=== PATIENT | male | born 1940 | race Caucasian/White ===

== ENCOUNTER 2017-01-24 22:06 | Inpatient (IN) | payer MEDICARE, OTHER ==
[~2017-01-24] VITALS: Ht 193 cm; Wt 110.9 kg
[~2017-01-24 22:06] MED LIST: AMLO10TA2 PO; BUPR150T15 PO; DOXA4TAB3 PO; HYDR25TA9 PO; INSU100V13 SUBCUT; INSU100V31 SUBCUT; LEVO112C PO; LISI-334 PO; POTA20TA84 PO
[2017-01-24] MEDS ORDERED: ASPIRIN 81 MG TAB.CHEW PO ONE (22:45)
[2017-01-24] MEDS ORDERED: NITROGLYCERIN SUBLINGUAL 0.4 MG BOTTLE OF 25. SL ONE (22:45)
[2017-01-24] MEDS ORDERED: FUROSEMIDE 100 MG/10 ML VIAL IVP ONE (22:45)
[2017-01-24 23:13] LABS: BASO % 0 % (0-3); EOS # 0.1 x10^3/uL (0.0-0.7); EOS % 1 % (0-3); HEMATOCRIT 38.8 % (39.0-53.0); HEMOGLOBIN 12.9 g/dL (13.0-17.5); LYMPH # 2.3 x10^3/uL (1.0-4.8); LYMPH % 24 % (24-48); MEAN CORPUSCULAR HEMOGLOBIN 30 pg (25-35); MEAN CORPUSCULAR HGB CONC 33 g/dL (31-37); MEAN CORPUSCULAR VOLUME 91 fL (79-100); MONO # 0.8 x10^3/uL (0.0-1.1); MONO % 8 % (0-9); NEUT # 6.4 x10^3uL (1.8-7.7); NEUT % 66 % (31-73); PLATELET COUNT 183 x10^3/uL (140-400); RED BLOOD COUNT 4.29 x10^6/uL (4.30-5.70); RED CELL DISTRIBUTION WIDTH 14.9 % (11.5-14.5); WHITE BLOOD COUNT 9.7 x10^3/uL (4.0-11.0)
[2017-01-24 23:19] LABS: BILIRUBIN,URINE NEG (NEG); CLARITY,URINE CLOUDY; COLOR,URINE YELLOW; GLUCOSE,URINE NEG (NEG); NITRITE,URINE NEG (NEG); UROBILINOGEN,URINE 0.2 mg/dL (0.2 mg/dL)
[2017-01-24 23:20] LABS: BACTERIA,URINE MANY /HPF (0-FEW); SQUAMOUS EPITHELIAL CELL,UR FEW /LPF; WBC,URINE TNTC /HPF (0-4)
[2017-01-24 23:34] LABS: ALBUMIN 3.4 g/dL (3.4-5.0); ALBUMIN/GLOBULIN RATIO 0.8 (1.0-1.7); CALCIUM 8.7 mg/dL (8.5-10.1); CREATININE 2.2 mg/dL (0.7-1.3); GFR 29.3; MAGNESIUM 2.7 mg/dL (1.8-2.4); POTASSIUM 4.9 mmol/L (3.5-5.1); TOTAL BILIRUBIN 0.4 mg/dL (0.2-1.0); TOTAL PROTEIN 7.5 g/dL (6.4-8.2)
--- NOTE | 2017-01-25 00:04 | PHYS DOC ---
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 He is also been drinking a great deal of free water Thursday by the nursing staff there at the [facility] because he asks for it. He has had no change in diet. No fevers, no chills no abdominal distention or pain. They were concerned about this weight gain although there are once providing him all of the free fluids. Review of Systems Review of Systems This patient is not able to provide a review of systems. He denies any chest pain, abdominal pain, other symptoms other than the fact he is hungry and thirsty. Current Medications Current Medications Current Medications Medications (Trade) Dose Ordered Sig/[facility] Start Time Stop Time Status Last Admin Dose Admin Aspirin (Children'S Aspirin) 324 mg 1X ONCE 01/24/17 22:45 01/24/17 22:46 DC 01/24/17 22:51 324 MG Furosemide (Lasix) 80 mg 1X ONCE 01/24/17 22:45 01/24/17 22:46 DC 01/24/17 22:50 80 MG Nitroglycerin (Nitrostat) 0.4 mg 1X ONCE 01/24/17 22:45 01/24/17 22:46 DC 01/24/17 22:45 0.4 MG Allergies Allergies Allergies Coded Allergies Type Severity Reaction Last Updated Verified Penicillins Allergy Intermediate hives 10/16/13 Yes Physical Exam Physical Exam Constitutional: Well developed, well nourished, no acute distress, non-toxic appearance. [] HENT: Normocephalic, atraumatic, bilateral external ears normal, oropharynx moist, no oral exudates, nose normal. [] Eyes: PERRLA, EOMI, conjunctiva normal, no discharge. [] Neck: Normal range of motion, no tenderness, supple, no stridor. [] Cardiovascular:Heart rate regular rhythm, no murmur [] Lungs & Thorax: Bilateral breath sounds clear to auscultation [] Abdomen: Bowel sounds normal, soft, no tenderness, no masses, no pulsatile masses. [] Skin: Warm, dry, no erythema, no rash. [] Back: No tenderness, no CVA tenderness. [] Extremities: No tenderness, no cyanosis, no clubbing, ROM intact, no edema. [] Neurologic: Alert and oriented X 3, normal motor function, normal sensory function, no focal deficits noted. [] Psychologic: Affect normal, judgement normal, mood normal. [] Current Patient Data Vital Signs Vital Signs Date Time Temp Pulse Resp B/P (MAP) Pulse Ox O2 Delivery O2 Flow Rate FiO2 01/24/17 22:45 79 157/88 Lab Results Laboratory Tests Test 01/24/17 22:50 01/24/17 22:55 White Blood Count 9.7 x10^3/uL (4.0-11.0) Red Blood Count 4.29 x10^6/uL (4.30-5.70) L Hemoglobin 12.9 g/dL (13.0-17.5) L Hematocrit 38.8 % (39.0-53.0) L Mean Corpuscular Volume 91 fL (79-100) Mean Corpuscular Hemoglobin 30 pg (25-35) Mean Corpuscular Hemoglobin Concent 33 g/dL (31-37) Red Cell Distribution Width 14.9 % (11.5-14.5) H Platelet Count 183 x10^3/uL (140-400) Neutrophils (%) (Auto) 66 % (31-73) Lymphocytes (%) (Auto) 24 % (24-48) Monocytes (%) (Auto) 8 % (0-9) Eosinophils (%) (Auto) 1 % (0-3) Basophils (%) (Auto) 0 % (0-3) Neutrophils # (Auto) 6.4 x10^3uL (1.8-7.7) Lymphocytes # (Auto) 2.3 x10^3/uL (1.0-4.8) Monocytes # (Auto) 0.8 x10^3/uL (0.0-1.1) Eosinophils # (Auto) 0.1 x10^3/uL (0.0-0.7) Basophils # (Auto) 0.0 x10^3/uL (0.0-0.2) Sodium Level 134 mmol/L (136-145) L Potassium Level 4.9 mmol/L (3.5-5.1) Chloride Level 100 mmol/L (98-107) Carbon Dioxide Level 26 mmol/L (21-32) Anion Gap 8 (6-14) Blood Urea Nitrogen 57 mg/dL (8-26) H Creatinine 2.2 mg/dL (0.7-1.3) H Estimated GFR (Cockcroft-Gault) 29.3 BUN/Creatinine Ratio 26 (6-20) H Glucose Level 144 mg/dL (70-99) H Calcium Level 8.7 mg/dL (8.5-10.1) Magnesium Level 2.7 mg/dL (1.8-2.4) H Total Bilirubin 0.4 mg/dL (0.2-1.0) Aspartate Amino Transferase (AST) 20 U/L (15-37) Alanine Aminotransferase (ALT) 32 U/L (16-63) Alkaline Phosphatase 48 U/L (46-116) Creatine Kinase 97 U/L (39-308) Creatine Kinase MB (Mass) 3.5 ng/mL (0.0-3.6) Creatine Kinase MB Relative Index 3.6 % (0-4) QI-Uoy-O-Type Natriuretic Peptide 344 pg/mL (0-449) Total Protein 7.5 g/dL (6.4-8.2) Albumin 3.4 g/dL (3.4-5.0) Albumin/Globulin Ratio 0.8 (1.0-1.7) L Urine Collection Type U cath Urine Color Yellow Urine Clarity Cloudy Urine pH 6.5 Urine Specific [place] <=1.005 Urine Protein Trace (NEG-TRACE) Urine Glucose (UA) Neg mg/dL (NEG) Urine Ketones (Stick) Neg mg/dL (NEG) Urine Blood Mod (NEG) Urine Nitrite Neg (NEG) Urine Bilirubin Neg (NEG) Urine Urobilinogen Dipstick 0.2 mg/dL (0.2 mg/dL) Urine Leukocyte Esterase Large (NEG) Urine RBC 3-5 /HPF (0-2) Urine WBC Tntc /HPF (0-4) Urine Squamous Epithelial Cells Few /LPF Urine Bacteria Many /HPF (0-FEW) Urine Mucus Slight /LPF EKG EKG [] EKG timed 10:39 PM 01/24/2017 demonstrates heart rate of 67 age or fibrillation with irregular rhythm left axis deviation with a Q-wave inferiorly in lead 3. EKG read by Dr. Musa. Radiology/Procedures Radiology/Procedures [] Horrible chest x-ray demonstrates low lung volumes with no clear infiltrate patient's got cardiomegaly no obvious cephalization. Chest x-ray read by Dr. Musa. Course & Med Decision Making Course & Med Decision Making Pertinent Labs and Imaging studies reviewed. (See chart for details) patient is a pleasant 76-year-old male with history of dementia Alzheimer's and diabetes who presents with increasing weight gain and swelling in the periphery. The concern initially upon presentation was congestive heart failure. Patient on appropriate workup to include diuresis with nitrates and Lasix. Patient oriented a Claros in place which is not draining any urine at this time. [] My differential diagnosis for peripheral edema included but not limited to the following. Renal sodium retention, nephrotic syndrome, idiopathic edema secondary to volume to patient, drug-induced edema concerning vasodilators, NSAIDs, venous insufficiency or thromboembolism, pitting edema from lymphatic obstruction or hypothyroidism, ascites associated with abdominal distention, central venous pressure increases secondary to cirrhosis, congestive heart failure, or pericardial heart disease. Patient's vital signs been stable patient's lung sounds are clear. Patient's chest x-ray does not show any signs of cephalization or congestive heart failure. Patient's proBNP is 340 it is noted that his by mouth and creatinine are mildly elevated at 57 and 2.2 if anything patient looks like he has been volume depleted. As been given Lasix and nitrates here and has been diuresing clear urine. At this point patient will be admitted to the hospital. " His primary care doctor. is Dr. Ayers Laminating Machine Operator note: Call physician Laminating Machine Operator called at of the service spoke to on-call physician at 11:58 PM Consult called back at Discussed the case I presented and they agreed with admission. Time of acceptance 11:58 PM Angelika Disclaimer Dragon Disclaimer This chart was dictated in whole or in part using Voice Recognition software in a busy, high-work load, and often noisy Emergency Department environment. It may contain unintended and wholly unrecognized errors or omissions. Departure Departure: Impression: Primary Impression: Chronic wound of extremity Additional Impressions: Renal failure Debility Disposition: ADMITTED INPATIENT Admitting Physician: Ran Parmar Condition: GUARDED Referrals: KHLOE AYERS MD (PCP) Problem Qualifiers WALI MUSA MD Jan 25, 2017 00:04
[2017-01-25] MEDS: IV NORMAL SALINE 1,000ML 1,000 ML IV SCH ×2 (00:30→10:30)
[2017-01-25] MEDS ORDERED: DIVA250T6 PO (01:40)
[2017-01-25] MEDS ORDERED: MULT-208 PO (01:55)
[2017-01-25] MEDS ORDERED: WARF1TAB7 PO (01:55)
[2017-01-25] MEDS ORDERED: DOXA8TAB59 PO (01:55)
[2017-01-25] MEDS ORDERED: TRAZ-90 PO (01:55)
[2017-01-25] MEDS ORDERED: INSU100I17 SQ (01:55)
[2017-01-25] MEDS ORDERED: LEVO137T2 PO (01:55)
[2017-01-25] MEDS ORDERED: FAMO20TA5 PO (01:55)
[2017-01-25] MEDS ORDERED: LEVO25TA55 PO (01:55)
[2017-01-25] MEDS ORDERED: POTA20TA4 PO (01:55)
[2017-01-25] MEDS ORDERED: WARF5TAB7 PO (01:55)
[2017-01-25] MEDS ORDERED: NITR100C62 PO (01:55)
[2017-01-25] MEDS ORDERED: FINA5TAB4 PO (01:55)
[2017-01-25] MEDS ORDERED: FLUV100T2 PO (01:55)
[2017-01-25] MEDS ORDERED: FURO40TA4 PO (01:55)
[2017-01-25] MEDS ORDERED: DIVA500T9 PO (01:55)
[2017-01-25] MEDS ORDERED: OMEP20CA9 PO (01:55)
[2017-01-25 01:57] VITALS: BP 162/88
[2017-01-25 07:40] VITALS: BP 175/84
--- NOTE | 2017-01-25 07:46 | PDOC1 ---
History of Present Illness Reason for Visit: Swelling History of Present Illness Pt sent from [facility] to ER for evaluation due to weight gain and swelling. Pt is a very poor historian. He was hospitalized here in the last year on the [facility] unit. He tells me that he is hungry and wants to eat. He says "I am here for my heel pain in my right heel." Per staff, he has been asking for more food all morning. 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 Endocrine: Diabetes, Hypothyroidism Past Surgical History: No pertinent history Family History: No pertinent hx Past Social History Smoke: No Alcohol: none Drugs: None Lives: Jail Review of Systems Review Of Systems ROS unobtainable due to pt's dementia Allergies: Coded Allergies: Penicillins (Verified Allergy, Intermediate, hives, 10/16/13) Medications Current Medications Aspirin (Children'S Aspirin) 324 mg 1X ONCE PO Last administered on 01/24/17 22:51; Start 01/24/17 at 22:45; Stop 01/24/17 at 22:46; Status DC Furosemide (Lasix) 80 mg 1X ONCE IVP Last administered on 01/24/17 22:50; Start 01/24/17 at 22:45; Stop 01/24/17 at 22:46; Status DC Nitroglycerin (Nitrostat) 0.4 mg 1X ONCE SL Last administered on 01/24/17 22: 45; Start 01/24/17 at 22:45; Stop 01/24/17 at 22:46; Status DC Sodium Chloride 1,000 ml @ 100 mls/hr Q10H IV ; Start 01/25/17 at 00:30; Stop 01/26/17 at 00:29 Ciprofloxacin (Cipro) 250 mg BID PO ; Start 01/25/17 at 09:00 Amlodipine Besylate (Norvasc) 10 mg DAILY PO ; Start 01/25/17 at 09:00 Divalproex Sodium (Depakote) 250 mg DAILY PO ; Start 01/25/17 at 09:00 Famotidine (Pepcid) 20 mg DAILY PO ; Start 01/25/17 at 09:00 Finasteride (Proscar) 5 mg DAILY PO ; Start 01/25/17 at 09:00 Fluvoxamine Maleate (Luvox) 150 mg DAILY PO ; Start 01/25/17 at 09:00 Warfarin Sodium (Coumadin Per Pharmacy) 1 each PRN DAILY PRN MC SEE COMMENTS; Start 01/25/17 at 07:00 Divalproex Sodium (Depakote Er) 500 mg BID PO ; Start 01/25/17 at 09:00 Active Scripts Active Reported Warfarin Sodium 5 Mg Tablet 1 Tab PO DAILY Warfarin Sodium 1 Mg Tablet 1 Mg PO DAILY Trazodone Hcl 100 Mg Tablet 1 Tab PO QHS Multi-Day Vitamins (Multivitamin) 1 Each Tablet 1 Tab PO DAILY Klor-Con M20 (Potassium Chloride) 20 Meq Tab.er.prt 1 Tab PO BID Omeprazole 20 Mg Capsule.dr 1 Cap PO DAILY06 Novolog Flexpen (Insulin Aspart) 100 Unit/1 Ml Insuln.pen 1 Unit SQ Macrobid 100 Mg Capsule (Nitrofurantoin Monohyd/M-Cryst) 100 Mg Capsule 1 Cap PO DAILY Synthroid (Levothyroxine Sodium) 25 Mcg Tablet 1 Tab PO DAILY06 Synthroid (Levothyroxine Sodium) 137 Mcg Tablet 1 Tab PO DAILY06 Furosemide 40 Mg Tablet 1 Tab PO DAILY Fluvoxamine Maleate 100 Mg Tablet 150 Mg PO DAILY Finasteride 5 Mg Tablet 1 Tab PO DAILY Famotidine 20 Mg Tablet 1 Tab PO BID Doxazosin Mesylate 8 Mg Tablet 1 Tab PO QHS Divalproex Sodium 500 Mg Tablet. 1 Tab PO BID Divalproex Sodium 250 Mg Tablet. 250 Mg PO DAILY Amlodipine Besylate 10 Mg Tablet 10 Mg PO DAILY Exam Vital Signs Vital Signs Date Time Temp Pulse Resp B/P (MAP) Pulse Ox O2 Delivery O2 Flow Rate FiO2 01/25/17 04:00 81 01/25/17 02:01 Room Air 01/25/17 01:57 97.8 18 162/88 (112) 97 General Appearance: Alert, Cooperative, No acute distress, Other (Oriented to person only) HEENT: Atraumatic, PERRLA, EOMI, Mucous membr. moist/pink, Other (Neck supple, full ROM, no JVD, no LAD) Respiratory: Clear to auscultation, Normal air movement Heart: Other (Irregularly irregular, no m/r/g) Cardiac: AFIB Abdominal: Soft, Other (Moderately obese and protuberant, normal bowel sounds, NTTP) Extremities: Other (Trace BLE edema; Right heel is normal. There is what appears to be a previous pressure ulcer on left heel that has fully healed. NTTP.) Skin: No rashes Neuro: Normal speech, Normal tone, Cranial nerves 3-12 NL Psych/Mental Status: Mood NL Assessment/Plan Assessment/Plan 1. Acute on chronic renal failure: Review of records shows baseline creat of 1.6. Was 2.2 in ER. Pt gently hydrated. Hold Lasix for now but will likely restart, as pt has had weight gain. Monitor lytes. Recheck BMP today. 2. UTI: Culture pending. Start Cipro 250 mg PO BID. COuld be contributing to pt's acute renal failure. 3. Atrial fibrillation: Rate stable, continue warfarin for stroke prophylaxis (per pharmacy). 4. Dementia: Stable. 5. DM2: Monitor sugars, pt known to be labile as difficult to control what and when he eats. 6. Hx of CHF: No sign of acute CHF on today's exam. Will continue home meds. 7. Hypothyroidism: Check TSH. COntinue Levothyroxine. 8. DVT proph: Pt has a hx of DVT. If INR is subtherapeutic, will cover w/ Lovenox until in range. 9. Disp: Expect 2 MN's stay due to complexity of illness and multiple high risk comorbid conditions. COURSE Allergies Coded Allergies Type Severity Reaction Last Updated Verified Penicillins Allergy Intermediate hives 10/16/13 Yes Laboratory Tests Test 01/24/17 22:50 01/24/17 22:55 White Blood Count 9.7 x10^3/uL (4.0-11.0) Red Blood Count 4.29 x10^6/uL (4.30-5.70) Hemoglobin 12.9 g/dL (13.0-17.5) Hematocrit 38.8 % (39.0-53.0) Mean Corpuscular Volume 91 fL (79-100) Mean Corpuscular Hemoglobin 30 pg (25-35) Mean Corpuscular Hemoglobin Concent 33 g/dL (31-37) Red Cell Distribution Width 14.9 % (11.5-14.5) Platelet Count 183 x10^3/uL (140-400) Neutrophils (%) (Auto) 66 % (31-73) Lymphocytes (%) (Auto) 24 % (24-48) Monocytes (%) (Auto) 8 % (0-9) Eosinophils (%) (Auto) 1 % (0-3) Basophils (%) (Auto) 0 % (0-3) Neutrophils # (Auto) 6.4 x10^3uL (1.8-7.7) Lymphocytes # (Auto) 2.3 x10^3/uL (1.0-4.8) Monocytes # (Auto) 0.8 x10^3/uL (0.0-1.1) Eosinophils # (Auto) 0.1 x10^3/uL (0.0-0.7) Basophils # (Auto) 0.0 x10^3/uL (0.0-0.2) Sodium Level 134 mmol/L (136-145) Potassium Level 4.9 mmol/L (3.5-5.1) Chloride Level 100 mmol/L (98-107) Carbon Dioxide Level 26 mmol/L (21-32) Anion Gap 8 (6-14) Blood Urea Nitrogen 57 mg/dL (8-26) Creatinine 2.2 mg/dL (0.7-1.3) Estimated GFR (Cockcroft-Gault) 29.3 BUN/Creatinine Ratio 26 (6-20) Glucose Level 144 mg/dL (70-99) Calcium Level 8.7 mg/dL (8.5-10.1) Magnesium Level 2.7 mg/dL (1.8-2.4) Total Bilirubin 0.4 mg/dL (0.2-1.0) Aspartate Amino Transf (AST/SGOT) 20 U/L (15-37) Alanine Aminotransferase (ALT/SGPT) 32 U/L (16-63) Alkaline Phosphatase 48 U/L (46-116) Creatine Kinase 97 U/L (39-308) Creatine Kinase MB (Mass) 3.5 ng/mL (0.0-3.6) Creatine Kinase MB Relative Index 3.6 % (0-4) Troponin I Quantitative 0.019 ng/mL (0-0.055) UK-Try-U-Type Natriuretic Peptide 344 pg/mL (0-449) Total Protein 7.5 g/dL (6.4-8.2) Albumin 3.4 g/dL (3.4-5.0) Albumin/Globulin Ratio 0.8 (1.0-1.7) Urine Collection Type U cath Urine Color Yellow Urine Clarity Cloudy Urine pH 6.5 Urine Specific [place] <=1.005 Urine Protein Trace (NEG-TRACE) Urine Glucose (UA) Neg mg/dL (NEG) Urine Ketones (Stick) Neg mg/dL (NEG) Urine Blood Mod (NEG) Urine Nitrite Neg (NEG) Urine Bilirubin Neg (NEG) Urine Urobilinogen Dipstick 0.2 mg/dL (0.2 mg/dL) Urine Leukocyte Esterase Large (NEG) Urine RBC 3-5 /HPF (0-2) Urine WBC Tntc /HPF (0-4) Urine Squamous Epithelial Cells Few /LPF Urine Bacteria Many /HPF (0-FEW) Urine Mucus Slight /LPF Current Medications Medications (Trade) Dose Ordered Sig/[facility] Route PRN Reason Start Time Stop Time Status Last Admin Dose Admin Aspirin (Children'S Aspirin) 324 mg 1X ONCE PO 01/24/17 22:45 01/24/17 22:46 DC 01/24/17 22:51 Furosemide (Lasix) 80 mg 1X ONCE IVP 01/24/17 22:45 01/24/17 22:46 DC 01/24/17 22:50 Nitroglycerin (Nitrostat) 0.4 mg 1X ONCE SL 01/24/17 22:45 01/24/17 22:46 DC 01/24/17 22:45 Sodium Chloride 1,000 ml @ 100 mls/hr Q10H IV 01/25/17 00:30 01/26/17 00:29 Ciprofloxacin (Cipro) 250 mg BID PO 01/25/17 09:00 Amlodipine Besylate (Norvasc) 10 mg DAILY PO 01/25/17 09:00 Divalproex Sodium (Depakote) 250 mg DAILY PO 01/25/17 09:00 Famotidine (Pepcid) 20 mg DAILY PO 01/25/17 09:00 Finasteride (Proscar) 5 mg DAILY PO 01/25/17 09:00 Fluvoxamine Maleate (Luvox) 150 mg DAILY PO 01/25/17 09:00 Warfarin Sodium (Coumadin Per Pharmacy) 1 each PRN DAILY PRN MC SEE COMMENTS 01/25/17 07:00 Divalproex Sodium (Depakote Er) 500 mg BID PO 01/25/17 09:00 Vital Signs Date Time Temp Pulse Resp B/P (MAP) Pulse Ox O2 Delivery O2 Flow Rate FiO2 01/25/17 04:00 81 01/25/17 02:01 Room Air 01/25/17 01:57 97.8 18 162/88 (112) 97 EKG: Atrial fibrillation, no ischemic changes CXR: Final report pending, ER report indicated no sign of CHF or pulmonary edema ANNIE PHILIPPE MD Jan 25, 2017 07:46
[2017-01-25] MEDS: DIVALPROEX ER 500 MG TAB.ER.24H PO SCH ×2 (08:25→20:23)
[2017-01-25] MEDS: LEVOTHYROXINE 25 MCG TABLET. PO SCH (08:26)
[2017-01-25] MEDS: MULTIVITAMIN with MINERAL TABLET. PO SCH (08:26)
[2017-01-25] MEDS: DIVALPROEX SODIUM 250 MG TABLET.DR. PO SCH (08:26)
[2017-01-25] MEDS: FINASTERIDE 5 MG TABLET PO SCH (08:26)
[2017-01-25] MEDS: FUROSEMIDE 40 MG TABLET PO SCH (08:26)
[2017-01-25] MEDS: CIPROFLOXACIN HCL 250 MG TABLET PO SCH ×2 (08:26→20:23)
[2017-01-25] MEDS: FAMOTIDINE 20 MG TABLET PO SCH (08:27)
[2017-01-25] MEDS: PANTOPRAZOLE 40 MG TABLET. PO SCH (08:27)
[2017-01-25] MEDS: amLODIPine BESYLATE 10 MG TABLET PO SCH (08:27)
[2017-01-25 08:39] LABS: CALCIUM 8.7 mg/dL (8.5-10.1); CREATININE 2.3 mg/dL (0.7-1.3); GFR 27.9; POTASSIUM 4.4 mmol/L (3.5-5.1)
[2017-01-25] MEDS ORDERED: DIVALPROEX SODIUM PO SCH (09:00)
--- NOTE | 2017-01-25 09:14 | EKG ---
[address] [address] Test Date: 2017-01-24 Test Time: 22:39:06 Pat Name: AUREA EUBANKS Department: Room: Gender: M [employer] Supervisor: KATRINA : 1940 Requested By: WALI MUSA Order Number: [id number] Reading MD: Measurements Intervals [place] Rate: 66 P: HI: QRS: -20 QRSD: 92 T: 61 QT: 384 QTc: 404 Interpretive Statements ATRIAL FIBRILLATION LEFTWARD AXIS QRS(T) CONTOUR ABNORMALITY CONSIDER ANTEROLATERAL MYOCARDIAL DAMAGE CONSISTENT WITH INFERIOR INFARCT PROBABLY OLD RI6.01 Unconfirmed report No previous ECG available for comparison
--- NOTE | 2017-01-25 10:01 | RAD ---
AP portable chest radiograph 01/24/2017 Clinical History: Congestive heart failure. An AP portable erect digital radiograph of the chest was obtained. No previous studies are available for comparison. The cardiac silhouette is mildly enlarged. Atherosclerotic calcification of the thoracic aorta is seen. Elevation of the right hemidiaphragm is noted. No acute pulmonary infiltrate is seen. No pleural effusion or pneumothorax is noted. Degenerative changes are seen involving the thoracic spine and the left shoulder. Impression: Mild cardiomegaly. No acute pulmonary infiltrate is seen.
[2017-01-25 11:57] VITALS: BP 165/84
[2017-01-25 15:24] VITALS: BP 150/81
[2017-01-25 20:11] VITALS: BP 166/86
[2017-01-25] MEDS: traZODone 100 MG TABLET. PO SCH (20:23)
[2017-01-25] MEDS: DOXAZOSIN MESYLATE 4 MG TABLET PO SCH (20:23)
[2017-01-25 23:01] VITALS: BP 153/71
[2017-01-26] MEDS: LEVOTHYROXINE 137 MCG TABLET PO SCH (05:23)
[2017-01-26] MEDS: LEVOTHYROXINE 25 MCG TABLET. PO SCH (05:23)
--- NOTE | 2017-01-26 05:46 | ACF ---
Admit Criteria Forms Admit Criteria Forms Admit Criteria Forms UROLOGIC DISEASE [facility] Clinical Indications for Admission to Inpatient Care (Place ' X' for any and all applicable criteria): Hospital admission is needed for appropriate care of the patient because of 1 or more of the following: [ ]I. New-onset Reduced urine output, or hydronephrosis remaining after emergency or observation level care (as appropriate ) [ ]II. Renal disease needing inpatient care indicated by 1 or more of the following(2)(3)(4): [ ]a) Acute renal failure [ ]b) Significant uremic complications [ ]c) Acute kidney injury (that does not qualify as Acute renal failure ) requiring inpatient care indicated by ALL of the following(5)(6)(7)(8) (9): [ ]i) Worsening clinical status (eg, rising creatinine) despite outpatient and observation care treatment (eg, hydration) [ ]ii) Acute kidney injury indicated by 1 or more of the following: [ ]1) 2-fold or more rise in serum creatinine from baseline [ ]2) Reduction of more than 50% in estimated glomerular filtration rate from baseline [ ]3) Urine output less than 0.5 mL/kg/hr for 12 hours despite adequate volume status [ ]d) Systemic cause (eg, Goodpasture syndrome ) needing inpatient care [ ]e) Rapidly progressive renal disease needing inpatient care (eg, plasmapheresis, immunosuppression ) Anasarca needing inpatient care [ ]f) Hemoptysis [ ]g) Hemolysis, thrombosis, or infraction [ ]h) Anasarca needing inpatient care [ ]III. New-onset or uncontrolled nephrogenic diabetes insipidus [ ]IV. Urologic infection requiring inpatient care as indicated by 1 or more of the following(10)(11)(12): [ ]a) Hemodynamic instability [ ]b) Dehydration that is severe or persistent [ ]c) Failure of outpatient treatment [ ]d) Paxton's gangrene [ ]e) Urinary obstruction [ ]f) Immunocompromised state (eg, chronic steroid use ) [ ]g) Known renal or urologic abnormalities(eg, indwelling catheter, structural abnormalities ) [ ]h) Recent urologic manipulation or procedure Urinary obstruction [ ]i) Abscess requiring drainage Immunocompromised state [ ]V. Acute urinary retention requiring inpatient management as indicated by ANY ONE of the following(1)(13): [ ]a) Retention cannot be alleviated via emergency or observation level care (eg, urinary catheter placement) [ ]b) Hemodynamic instability [ ]c) Acute neurologic etiology (eg, cauda equina) [ ]d) Dehydration or other complications not manageable with emergency or observation level care [ ]e) Acute kidney injury (that does not qualify as Acute renal failure ) requiring inpatient care indicated by ALL of the following(5)(6)(7)(8) (9): [ ]i) Acute kidney injury indicated by ANY ONE of the following: [ ]1) 2-fold or more rise in serum creatinine from baseline [ ]2) Reduction of more than 50% in estimated glomerular filtration rate from baseline [ ]ii) Worsening clinical status (eg, rising creatinine) despite outpatient and observation care treatment (eg, hydration) [ ]. Gross hematuria requiring inpatient management as indicated by ANY ONE of the following(1)(2): [ ]a) Evidence of renal obstruction [ ]b) Reduced urine output [ ]c) Clot retention after urinary catheterization and irrigation [ ]d) Severe Anemia [ ]e) Systemic cause needing inpatient treatment (eg, Goodpasture syndrome) [ ]VII. Priapism not responsive to emergency or observation care treatment [ ]VII. Scrotal, testicular, or epididymal disorder requiring inpatient care indicated by 1 or more of the following(1)(14)(15)(16): [ ]a) Scrotal edema or infection not manageable with emergency or observation level care [ ]b) Orchitis not manageable with emergency or observation level care [ ]c) Epididymitis not manageable with emergency or observation level of care [ ]d) Other scrotal, testicular, or epididymal disorder (eg, infection, inflammation) not manageable with emergency or observation level care [ ]IX. Complications of transplanted kidney indicated by 1 or more of the following [ ]a) Acute graft rejection requiring inpatient management (eg, intravenous immunosuppression) [ ]b) Acute kidney injury indicated by ALL of the following i) Acute kidney injury indicated by 1 or more of the following 1) 2-fold or more rise in serum creatinine from baseline 2) Reduction of more than 50% in estimated glomerular filtration rate from baseline 3) Urine output less than 0.5 mL/kg/hr for 12 hours despite adequate volume status ii) Kidney injury too severe or not responsive to outpatient and observation care treatment (eg, hydration) [ ]c) Infection requiring inpatient management (eg, Hemodynamic instability, need for intravenous antimicrobial treatment) [ ]d) Other complication of transplanted kidney requiring patient management (eg, severe diarrhea leading to malabsorption) [ ]X. Trauma to renal, genital, or urologic system requiring inpatient medical care [X]XI. Urologic Disease condition, symptom, or finding for which emergency and observation care have failed or are not considered appropriate. The original [employer] content created by [employer] has been revised. The portions of the content which have been revised are identified through the use of italic text or in bold, and [facility] has neither reviewed nor approved the modified material. All other unmodified content is copyright [facility]. Please see references footnoted in the original [employer] edition 2016 MANUEL KAUR Jan 26, 2017 05:46
[2017-01-26 05:52] VITALS: BP 176/78
[2017-01-26 06:37] LABS: CALCIUM 8.5 mg/dL (8.5-10.1); CREATININE 2.1 mg/dL (0.7-1.3); GFR 30.9
[2017-01-26] MEDS: PANTOPRAZOLE 40 MG TABLET. PO SCH (07:30)
[2017-01-26] MEDS: MULTIVITAMIN with MINERAL TABLET. PO SCH (08:10)
[2017-01-26] MEDS: FINASTERIDE 5 MG TABLET PO SCH (08:10)
[2017-01-26] MEDS: CIPROFLOXACIN HCL 250 MG TABLET PO SCH ×2 (08:11→21:02)
[2017-01-26] MEDS: amLODIPine BESYLATE 10 MG TABLET PO SCH (08:11)
[2017-01-26] MEDS: FUROSEMIDE 40 MG TABLET PO SCH (08:11)
[2017-01-26] MEDS: FAMOTIDINE 20 MG TABLET PO SCH (08:11)
[2017-01-26] MEDS: DIVALPROEX SODIUM 250 MG TABLET.DR. PO SCH (08:11)
[2017-01-26] MEDS: DIVALPROEX ER 500 MG TAB.ER.24H PO SCH ×2 (08:11→21:02)
[2017-01-26 10:30] VITALS: BP 138/67
[2017-01-26] MEDS: IV NORMAL SALINE 1,000ML 1,000 ML IV SCH ×2 (13:33→21:01)
[2017-01-26 15:36] VITALS: BP 146/70
[2017-01-26] MEDS ORDERED: WARFARIN 6 MG TABLET. PO ONE (16:00)
[2017-01-26 19:35] VITALS: BP 163/69
[2017-01-26] MEDS: traZODone 100 MG TABLET. PO SCH (21:02)
[2017-01-26] MEDS: DOXAZOSIN MESYLATE 4 MG TABLET PO SCH (21:03)
--- NOTE | 2017-01-27 03:27 | PN ---
DATE: 01/26/2017 SUBJECTIVE: The patient is a 76-year-old male patient who is a resident at [facility], was brought to the Emergency Room for evaluation due to weight gain and swelling. The patient himself is a very poor historian. He was hospitalized here in last year at the [facility]. He is constantly asking for water probably about 10 times in ___ that we are in his room. Denied any chest pain or shortness of breath. Apparently his Claros catheter was out of place and was reinserted. He is now making urine. His kidney function is if anything actually is improving. I contacted the [facility] as the last lab work we have available in our endocrine [facility] system was in 2013. At that time, his creatinine was 0.8 and his last creatinine done on 10/17/2016 was 0.9 mg/dL indicating that he has acute kidney injury, most likely due to obstruction. PHYSICAL EXAMINATION: GENERAL: When I saw him this afternoon, he looked well and was clearly in no apparent respiratory distress, somewhat pale, but no jaundice or cyanosis. No lymphadenopathy or thyromegaly. No jugular venous distention. Mild bilateral lower limb edema. VITAL SIGNS: Her heart rate was 67, blood pressure 138/67, temperature was 98.4, respiratory rate was 20, and oxygen saturation was 97% on room air. HEAD, EYES, EARS, NOSE AND THROAT: Showed normocephalic, atraumatic. NECK: Supple. HEART: Showed normal first and second heart sounds with no gallop, rub or murmur. CHEST: Clear to auscultation. No crepitation or rhonchi. ABDOMEN: Distended, soft, nontender. No guarding or rigidity. No organomegaly. Hernial orifices intact. Bowel sounds normal. NEUROLOGIC: He is demented, but he has no obvious lateralizing sign. All his cranial nerves are intact. He moves extremities without difficulty; however, he is mostly bed bound and chair bound. His intake over the last 24 hours was 3740, output was 11,650. LABORATORY DATA: As of this morning showed a serum sodium 138, potassium 4, chloride 103, bicarbonate 29, anion gap of 6, BUN 51, creatinine 2.1, estimated GFR was 31 mL per minute. His glucose was ____, calcium was 8.5. His troponin were all less than 0.019. ASSESSMENT: 1. Acute renal failure. His most recent lab work on 10/17/2016 showed a creatinine to be 0.9 mg/dL. I have feeling that the most likely calibrated is the fact that he probably was obstructed as his catheter was out. He is known to have benign prostatic hypertrophy. Urinalysis showed that it has too numerous to count wbc's and there was large amount of leukocyte esterase and he was started on ciprofloxacin. 2. Atrial fibrillation, rate controlled and apparently will anticoagulate on Coumadin. 3. Dementia, stable. 4. Type 2 diabetes mellitus and the blood sugar is reasonably controlled. PLAN: My plan is to restart his IV fluid for his acute renal failure. Continue to monitor his blood sugars and adjust insulin as needed. He has history of congestive heart failure, but however, the patient is clinically well compensated hypothyroidism. However, his TSH is within normal range to slightly higher 4.8, the upper limit of normal at 3.74. I would check also T3, T4. Continue with DVT prophylaxis and he is already on Coumadin and INR is in therapeutic range. I will arrange for him to have Doppler ultrasound, start him on IV fluid and repeat his labs tomorrow and decide on further management accordingly. REID BYERS MD DR: MAHAD/paulie JOB#: [id number] / [id number]
[2017-01-27 05:00] VITALS: BP 147/75
[2017-01-27] MEDS: LEVOTHYROXINE 137 MCG TABLET PO SCH (05:41)
[2017-01-27] MEDS: LEVOTHYROXINE 25 MCG TABLET. PO SCH (05:41)
[2017-01-27] MEDS: IV NORMAL SALINE 1,000ML 1,000 ML IV SCH ×3 (05:46→20:11)
[2017-01-27 06:55] LABS: HEMATOCRIT 38.6 % (39.0-53.0); HEMOGLOBIN 12.8 g/dL (13.0-17.5); RED BLOOD COUNT 4.3 x10^6/uL (4.30-5.70); RED CELL DISTRIBUTION WIDTH 14.4 % (11.5-14.5)
[2017-01-27 07:03] LABS: ALBUMIN 2.9 g/dL (3.4-5.0); ALBUMIN/GLOBULIN RATIO 0.8 (1.0-1.7); CALCIUM 8.2 mg/dL (8.5-10.1); CREATININE 1.6 mg/dL (0.7-1.3); GFR 42.3; POTASSIUM 3.4 mmol/L (3.5-5.1); TOTAL BILIRUBIN 0.4 mg/dL (0.2-1.0); TOTAL PROTEIN 6.6 g/dL (6.4-8.2)
--- NOTE | 2017-01-27 07:20 | RAD ---
Renal ultrasound, 01/26/2017: History: Acute and chronic renal insufficiency The right kidney measures 12.4 cm in length while the left kidney measures 13.5 cm. There is no evidence of hydronephrosis or a renal mass. The renal parenchymal echogenicity is within normal limits. The bladder is inadequately visualized due to decompression by a Claros catheter. IMPRESSION: No significant renal abnormality is detected.
[2017-01-27] MEDS: DIVALPROEX SODIUM 250 MG TABLET.DR. PO SCH (08:31)
[2017-01-27] MEDS: PANTOPRAZOLE 40 MG TABLET. PO SCH (08:31)
[2017-01-27] MEDS: CIPROFLOXACIN HCL 250 MG TABLET PO SCH ×2 (08:31→20:10)
[2017-01-27] MEDS: MULTIVITAMIN with MINERAL TABLET. PO SCH (08:31)
[2017-01-27] MEDS: FINASTERIDE 5 MG TABLET PO SCH (08:31)
[2017-01-27] MEDS: amLODIPine BESYLATE 10 MG TABLET PO SCH (08:31)
[2017-01-27] MEDS: FAMOTIDINE 20 MG TABLET PO SCH ×2 (08:31→20:11)
[2017-01-27] MEDS: DIVALPROEX ER 500 MG TAB.ER.24H PO SCH ×2 (08:31→20:11)
[2017-01-27 10:18] VITALS: BP 155/68
[2017-01-27] MEDS ORDERED: WARFARIN 7.5 MG TABLET. PO ONE (16:00)
[2017-01-27 18:38] VITALS: BP 172/79
[2017-01-27] MEDS: traZODone 100 MG TABLET. PO SCH (20:11)
[2017-01-27] MEDS: DOXAZOSIN MESYLATE 4 MG TABLET PO SCH (20:11)
--- NOTE | 2017-01-28 03:48 | PN ---
DATE: 01/27/2017 SUBJECTIVE: The patient is resting, sitting slightly propped up in bed, in no apparent respiratory distress. He is awake, alert, eating his lunch comfortably. On questioning him, he denied any complaint. The nursing staff did not voice any concern and stated that he had an uneventful night. PHYSICAL EXAMINATION: GENERAL: When I examined him, he looked somewhat pale, but no jaundice, cyanosis, or thyromegaly. No jugular venous distention. No limb edema. VITAL SIGNS: Her heart rate was 56, blood pressure 155/68, temperature was 97.5, respiratory rate 20, and oxygen saturation was 95% on room air. HEAD, EYES, EARS, NOSE AND THROAT: Showed normocephalic, atraumatic. NECK: Supple. HEART: Showed normal first and second sounds. No gallop, rub or murmur. CHEST: Clear to auscultation. No crepitation or rhonchi. ABDOMEN: Distended, soft, nontender. NEUROLOGIC: He was awake, alert, responding appropriately. All his cranial nerves are intact, he moves all extremities without difficulty; however, he is mostly bedbound, chair bound. He is actually . He has an indwelling Claros catheter. His intake over the last 24 hours was 4886 and output was 8515. LABORATORY DATA: As of this morning showed a white cell count 9000, hemoglobin 12.8, hematocrit 38.6, MCV 90 and platelet count of 157,000. His chemistry showed a serum sodium of 142, potassium 3.4, chloride 107, bicarbonate 27, anion gap of 8, BUN 29, creatinine of 1.6, estimated GFR was 42 mL per minute. His glucose was 180. Calcium was 8.2. Total bilirubin, AST, ALT, alkaline phosphatase were normal. His total protein was 6.6, albumin 2.9 g/dL. His prothrombin time was 18.3, INR of 1.8. His urine culture showed gram-negative rods greater than 100,000 colony forming units per mL. The identification and sensitivity is still pending at the time of this dictation. He did have renal ultrasound which showed the right kidney measuring 12.4 cm in length while the left kidney measured 13.5. There is no evidence of hydronephrosis, renal mass. Renal parenchyma and echogenicity within normal limits. The bladder is not adequately visualized due to decompression by Claros catheter. ASSESSMENT: 1. Acute kidney injury is improving. His creatinine is coming down from 2.3 down to 1.6. His BUN is coming down from 59 to 29. 2. Atrial fibrillation, rate controlled, and well anticoagulated, on Coumadin. 3. Dementia, stable. 4. Type 2 diabetes mellitus with blood sugar reasonably controlled. 5. Benign prostatic hypertrophy, requiring an indwelling Claros catheter. 6. Functional paraplegia, the patient is mostly bed bound and chair bound. He is left. PLAN: The plan is to continue with IV fluid. Continue with ciprofloxacin 250 mg p.o. b.i.d. for UTI. He is growing more than 100,000 colony forming units per mL of gram-negative rods. Identification and sensitivity is still pending at the time of this dictation. I will repeat his labs tomorrow and if his kidney function returned back to baseline of about 1 mg, he can be discharged back. REID BYERS MD DR: MAHAD/paulie JOB#: [id number] / [id number]
[2017-01-28] MEDS: LEVOTHYROXINE 137 MCG TABLET PO SCH (05:44)
[2017-01-28] MEDS: LEVOTHYROXINE 25 MCG TABLET. PO SCH (05:44)
[2017-01-28 05:50] VITALS: BP 163/78
[2017-01-28 06:48] LABS: CREATININE 1.2 mg/dL (0.7-1.3); POTASSIUM 3.1 mmol/L (3.5-5.1)
[2017-01-28] MEDS: DIVALPROEX ER 500 MG TAB.ER.24H PO SCH (08:12)
[2017-01-28] MEDS: FAMOTIDINE 20 MG TABLET PO SCH (08:12)
[2017-01-28] MEDS: CIPROFLOXACIN HCL 250 MG TABLET PO SCH (08:12)
[2017-01-28] MEDS: FINASTERIDE 5 MG TABLET PO SCH (08:12)
[2017-01-28] MEDS: DIVALPROEX SODIUM 250 MG TABLET.DR. PO SCH (08:12)
[2017-01-28] MEDS: MULTIVITAMIN with MINERAL TABLET. PO SCH (08:12)
[2017-01-28] MEDS: PANTOPRAZOLE 40 MG TABLET. PO SCH (08:12)
[2017-01-28 08:13] VITALS: BP 163/78
[2017-01-28] MEDS: amLODIPine BESYLATE 10 MG TABLET PO SCH (08:13)
[2017-01-28] MEDS ORDERED: POTASSIUM CHLORIDE 20 MEQ TABLET.ER. PO ONE (09:00)
[2017-01-28] MEDS ORDERED: WARFARIN 7.5 MG TABLET. PO ONE (16:00)
--- NOTE | 2017-01-29 | DS ---
DATE OF DISCHARGE: 01/28/2017 HOSPITAL COURSE: The patient is a 76-year-old male patient who was admitted from the [facility] for evaluation of weight gain and swelling. However, clinically, he was not really fluid overloaded. In fact, he was if anything dehydrated. His BUN and creatinine was high at 59 and 2.3 respectively. I did discontinue his Lasix and potassium and started him on IV fluid. Also, his urinalysis was suggestive of too numerous to count wbc's, large amount of leukocyte esterase and too many bacteria. Eventually, his urine culture has grown more than 100,000 colony forming units per mL of Stenotrophomonas maltophilia as well as gram-negative rods, 118,000-25,000. I spoke with the microbiology lab at [facility] and apparently Stenotrophomonas was sensitive to levofloxacin as well as trimethoprim sulfamethoxazole. He was already on ciprofloxacin. When I saw him today, he looked well and was clearly in no apparent distress. The patient denied any complaints. Nursing staff did not voice any concern and he did have an eventual night. PHYSICAL EXAMINATION: GENERAL: When I examined him, he looked pale, but no jaundice, cyanosis, lymphadenopathy or thyromegaly. No jugular venous distention. No limb edema. VITAL SIGNS: His heart rate was 74, blood pressure was 163/78, temperature was 97.5, respiratory rate 20, and oxygen saturation was 96% on room air. HEENT: Showed normocephalic, atraumatic. NECK: Supple. HEART: Showed normal first and second heart sounds with no gallop, rub or murmur. CHEST: Clear to auscultation. No crepitation or rhonchi. ABDOMEN: Distended, soft, nontender. No guarding or rigidity. No organomegaly. Hernial orifices intact. Bowel sounds normal. NEUROLOGIC: He was demented, but all his cranial nerves are intact. She moves upper extremities without difficulty. He is mostly bed bound and chair bound. He is actually Ha lift. His intake over the last 24 hours was 3198, output was 8350. LABORATORY DATA: As of this morning showed a white cell count of 9000, hemoglobin 13, hematocrit 39, MCV 90 and platelet count of 157,000. Serum sodium was 142, potassium 3.1, chloride 107, bicarbonate 29, anion gap of 6, BUN 17, creatinine 1.2, estimated GFR was 59 mL per minute, his glucose 191 and calcium was 8. Total protein was 6.6, albumin 2.9. ASSESSMENT: 1. Acute kidney injury, resolving. His creatinine is down to 1.2. The BUN is down to 17 mg/dL. 2. Urinary tract infection, growing more than 100,000 colony-forming units of Stenotrophomonas maltophilia, sensitive to levofloxacin for which we started him on levofloxacin 500 mg once a day. 3. Atrial fibrillation, rate controlled. Apparently, well anticoagulated on Coumadin. 4. Dementia, stable. 5. Type 2 diabetes mellitus. Seems to be reasonably controlled. 6. Protein-calorie malnutrition with serum albumin of 2.9 mg/dL. 7. Hypokalemia for which will give him 40 mEq of potassium. We will continue with his potassium supplement. REID BYERS MD DR: MAHAD/paulie JOB#: [id number] / [id number]
== END 2017-01-28 13:39 | disposition home or self-care (01) | DRG 689 ==
LOC: ER 22:06 → 1 SOUTH 23:59
PROVIDERS: ADMIT Family Medicine; ATTEND Family Medicine
DX: N39.0 Urinary tract infection, site not specified (principal); N17.0 Acute kidney failure with tubular necrosis; E46 Unspecified protein-calorie malnutrition; E11.22 Type 2 diabetes mellitus with diabetic chronic kidney disease; I13.0 Hypertensive heart and chronic kidney disease with heart failure and stage 1 through stage 4 chronic kidney disease, or unspecified chronic kidney disease; F03.90 Unspecified dementia, unspecified severity, without behavioral disturbance, psychotic disturbance, mood disturbance, and anxiety; I50.9 Heart failure, unspecified; I48.91 Unspecified atrial fibrillation; F32.9 Major depressive disorder, single episode, unspecified; B96.89 Other specified bacterial agents as the cause of diseases classified elsewhere; E86.0 Dehydration; E03.9 Hypothyroidism, unspecified; E87.6 Hypokalemia; F44.4 Conversion disorder with motor symptom or deficit; K21.9 Gastro-esophageal reflux disease without esophagitis; N18.9 Chronic kidney disease, unspecified; N40.0 Benign prostatic hyperplasia without lower urinary tract symptoms; Z79.01 Long term (current) use of anticoagulants; Z86.718 Personal history of other venous thrombosis and embolism; Z68.29 Body mass index [BMI] 29.0-29.9, adult; Z88.0 Allergy status to penicillin; Z74.01 Bed confinement status
CPT/HCPCS: 36415; 71010; 76770; 80048; 80053; 81001; 82553; 82947; 83735; 83880; 84443; 84484; 85025; 85027; 85610; 87086; 87186; 87641; 93005; 96374; 99285-25; J7030

== ENCOUNTER 2017-07-30 17:43 | Inpatient (IN) | payer MEDICARE, OTHER ==
[~2017-07-30] VITALS: Ht 193 cm; Wt 109.4 kg
[~2017-07-30 17:43] MED LIST changes: +DIVA250T6 PO; +DIVA500T9 PO; +DOXA8TAB59 PO; +FAMO20TA5 PO; +FINA5TAB4 PO; +FLUV100T2 PO; +FURO40TA4 PO; +INSU100I17 SQ; +LEVO137T2 PO; +LEVO25TA55 PO; +MULT-208 PO; +NITR100C62 PO; +OMEP20CA9 PO; +POTA20TA4 PO; +TRAZ-90 PO; +WARF-31 PO; +WARF1TAB69 PO
[2017-07-30] MEDS ORDERED: ALBUTEROL SULFATE 2.5 MG/3 ML NEBU. NEB ONE (18:00)
[2017-07-30] MEDS ORDERED: IV NORMAL SALINE 1,000ML 1,000 ML IV ONE (18:00)
[2017-07-30] MEDS ORDERED: INSULIN REGULAR 100 UNIT/ML 10ML VIAL. IV ONE (18:00)
--- NOTE | 2017-07-30 18:12 | PHYS DOC ---
Past History Past Medical History: A-Fib, CAD, CHF, Dementia, Depression, Diabetes, DVT, GERD, Hypertension, Hypothyroid, UTI, Other Past Surgical History: Other Smoking: Non-smoker Alcohol Use: None Drug Use: None Adult General Chief Complaint Chief Complaint: SHORTNESS OF BREATH HPI HPI Patient is a 77 year old M who presents with shortness of breath over the past 2 -3 months with worsening over the past 2-3 weeks. He states that he was started on oxygen to 3 weeks ago and feels that his symptoms of been mildly improving during that time. He denies chest pain, fever, chills or other associated symptoms at this time. His symptoms are exacerbated with minimal activity and improved with relative rest Review of Systems Review of Systems Constitutional: Denies fever or chills [] Eyes: Denies change in visual acuity, redness, or eye pain [] HENT: Denies nasal congestion or sore throat [] Respiratory: Negative except history of present illness Cardiovascular: No additional information not addressed in HPI [] GI: Denies abdominal pain, nausea, vomiting, bloody stools or diarrhea [] : Denies dysuria or hematuria [] Musculoskeletal: Denies back pain or joint pain [] Integument: Denies rash or skin lesions [] Neurologic: Denies headache, focal weakness or sensory changes [] Endocrine: polyuria and polydipsia All other systems were reviewed and found to be within normal limits, except as documented in this note. Family History Family History No pertinent family medical history was reported Current Medications Current Medications Her medications were reviewed Allergies Allergies Allergies Coded Allergies Type Severity Reaction Last Updated Verified Penicillins Allergy Intermediate hives 10/16/13 Yes Physical Exam Physical Exam Constitutional: Well developed, well nourished, moderate acute distress, ill- appearing. [] HENT: Normocephalic, atraumatic, maculopapular rash surrounding his mouth Eyes: EOMI, conjunctiva normal, no discharge. [] Neck: Normal range of motion, no tenderness, supple, no stridor. [] Cardiovascular:Heart rate regular rhythm, tachycardia Lungs & Thorax: Bilateral breath sounds clear to auscultation [] moderate increased work of breathing, supplemental oxygen by nonrebreather at 100% with saturations at approximately 94% Abdomen: Bowel sounds normal, soft, no tenderness, no masses, no pulsatile masses. [] Skin: Warm, dry, no erythema, Extremities: No tenderness, no cyanosis, no clubbing, ROM intact, no edema. [] Neurologic: Alert and oriented X 3, normal motor function, normal sensory function, no focal deficits noted. [] Psychologic: Affect normal, judgement normal, mood normal. [] Current Patient Data Vital Signs Vital Signs Date Time Temp Pulse Resp B/P (MAP) Pulse Ox O2 Delivery O2 Flow Rate FiO2 07/30/17 19:11 94 26 114/56 (75) 99 BiPAP/CPAP 07/30/17 17:46 97.4 15.0 Lab Results Laboratory Tests Test 07/30/17 17:51 07/30/17 17:55 07/30/17 19:21 Glucose (Fingerstick) 437 mg/dL 351 mg/dL White Blood Count 23.9 x10^3/uL Red Blood Count 5.83 x10^6/uL Hemoglobin 17.9 g/dL Hematocrit 56.3 % Mean Corpuscular Volume 97 fL Mean Corpuscular Hemoglobin 31 pg Mean Corpuscular Hemoglobin Concent 32 g/dL Red Cell Distribution Width 15.7 % Platelet Count 266 x10^3/uL Neutrophils (%) (Auto) 81 % Lymphocytes (%) (Auto) 6 % Monocytes (%) (Auto) 13 % Eosinophils (%) (Auto) 0 % Basophils (%) (Auto) 0 % Neutrophils # (Auto) 19.3 x10^3uL Lymphocytes # (Auto) 1.3 x10^3/uL Monocytes # (Auto) 3.2 x10^3/uL Eosinophils # (Auto) 0.0 x10^3/uL Basophils # (Auto) 0.0 x10^3/uL Platelet Estimate Pending Sodium Level 138 mmol/L Potassium Level 4.0 mmol/L Chloride Level 100 mmol/L Carbon Dioxide Level 13 mmol/L Anion Gap 25 Blood Urea Nitrogen 50 mg/dL Creatinine 2.4 mg/dL Estimated GFR (Cockcroft-Gault) 26.5 BUN/Creatinine Ratio 21 Glucose Level 450 mg/dL Lactic Acid Level 12.1 mmol/L Calcium Level 8.7 mg/dL Total Bilirubin 0.4 mg/dL Aspartate Amino Transf (AST/SGOT) 20 U/L Alanine Aminotransferase (ALT/SGPT) 30 U/L Alkaline Phosphatase 48 U/L Troponin I Quantitative 0.097 ng/mL IV-Aef-Z-Type Natriuretic Peptide 1370 pg/mL Total Protein 6.4 g/dL Albumin 2.6 g/dL Albumin/Globulin Ratio 0.7 Current Medications Medications (Trade) Dose Ordered Sig/Jorden Route PRN Reason Start Time Stop Time Status Last Admin Dose Admin Insulin Human Regular (NovoLIN R) 10 unit 1X ONCE IV 07/30/17 18:00 07/30/17 18:01 DC 07/30/17 18:23 Sodium Chloride 1,000 ml @ 100 mls/hr 1X ONCE IV 07/30/17 18:00 07/31/17 03:59 07/30/17 18:00 Albuterol Sulfate (Ventolin) 2.5 mg 1X ONCE NEB 07/30/17 18:00 07/30/17 18:01 DC Sodium Chloride 1,000 ml @ 0 mls/hr Q0M IV 07/30/17 19:45 Dextrose/Sodium Chloride 1,000 ml @ 0 mls/hr Q0M IV 07/30/17 19:35 UNV Insulin Human Regular 150 unit/ Sodium Chloride 151.5 ml @ 0 mls/hr CONT PRN PRN IV PER PROTOCOL 07/30/17 19:45 EKG EKG Interpreted by me: Heart rate 100, sinus rhythm, prolonged SC interval, no acute ST/T-wave abnormalities present[] Radiology/Procedures Radiology/Procedures One view AP chest x-ray interpreted by me: No infiltrate, no effusions, normal cardiac silhouette[] Course & Med Decision Making Course & Med Decision Making Pertinent Labs and Imaging studies reviewed. (See chart for details) Raúl has had a prolonged course of shortness of breath which may be associated with heart failure versus respiratory disease versus infection versus diabetic complications. Labs, EKG, images and initial therapies were started. His care was transferred to Dr. Ansari for further management. Addendum by Dr. Phani Ansari: I personally evaluated the patient. The patient the patient was hypotensive and tachycardic. Patient was started on IV fluid boluses with improvement in blood pressure. Patient found to have severe dehydration and elevated blood sugar with an anion gap concerning for acute DKA. Patient started on insulin drip. Patient also has a profound leukocytosis. Given patient's low oxygen levels, the patient will be empirically treated for possible pneumonia though chest x-ray does not show obvious infiltrates at this time. I spoke with Dr. Tamayo who accepted care patient in hospital. CODE STATUS DNR/DNI. Critical care time excluding procedures: 55 minutes Dragon Disclaimer Dragon Disclaimer This electronic medical record was generated, in whole or in part, using a voice recognition dictation system. Departure Departure: Impression: Primary Impression: DKA (diabetic ketoacidoses) Additional Impressions: Acute renal failure Dehydration Leukocytosis Lactic acidosis Acute respiratory failure Disposition: ADMITTED INPATIENT Admitting Physician: Shane Tamayo Condition: CRITICAL Referrals: KHLOE AYERS MD (PCP) Problem Qualifiers Primary Impression: DKA (diabetic ketoacidoses) Diabetes mellitus type: other specified (including SAPNA) Diabetes mellitus complication detail: without coma Qualified Codes: E13.10 - Other specified diabetes mellitus with ketoacidosis without coma Additional Impressions: Acute renal failure Acute renal failure type: unspecified Qualified Codes: N17.9 - Acute kidney failure, unspecified Leukocytosis Leukocytosis type: unspecified Qualified Codes: D72.829 - Elevated white blood cell count, unspecified Acute respiratory failure Respiratory failure complication: hypoxia Qualified Codes: J96.01 - Acute respiratory failure with hypoxia MARV FERMIN MD Jul 30, 2017 18:12 PHANI ANSARI MD Jul 30, 2017 19:56
[2017-07-30 18:33] LABS: ALBUMIN 2.6 g/dL (3.4-5.0); ALBUMIN/GLOBULIN RATIO 0.7 (1.0-1.7); CALCIUM 8.7 mg/dL (8.5-10.1); CREATININE 2.4 mg/dL (0.7-1.3); GFR 26.5; TOTAL BILIRUBIN 0.4 mg/dL (0.2-1.0); TOTAL PROTEIN 6.4 g/dL (6.4-8.2)
[2017-07-30 18:44] LABS: BASO % 0 % (0-3); EOS % 0 % (0-3); HEMATOCRIT 56.3 % (39.0-53.0); HEMOGLOBIN 17.9 g/dL (13.0-17.5); LYMPH # 1.3 x10^3/uL (1.0-4.8); LYMPH % 6 % (24-48); MEAN CORPUSCULAR HEMOGLOBIN 31 pg (25-35); MEAN CORPUSCULAR HGB CONC 32 g/dL (31-37); MEAN CORPUSCULAR VOLUME 97 fL (79-100); MONO # 3.2 x10^3/uL (0.0-1.1); MONO % 13 % (0-9); NEUT # 19.3 x10^3uL (1.8-7.7); NEUT % 81 % (31-73); PLATELET COUNT 266 x10^3/uL (140-400); RED BLOOD COUNT 5.83 x10^6/uL (4.30-5.70); RED CELL DISTRIBUTION WIDTH 15.7 % (11.5-14.5); WHITE BLOOD COUNT 23.9 x10^3/uL (4.0-11.0)
[2017-07-30] MEDS ORDERED: IV DEXTROSE 5 %-0.45 % NACL 1,000 ML IV SCH (19:35)
[2017-07-30] MEDS ORDERED: INSULIN REGULAR 150 UNIT in 0.9 % SODIUM CHLORIDE 150ML 150 ML IV PRN (19:45)
[2017-07-30 19:55] LABS: BGAS PH 7.22 (7.35-7.46)
[2017-07-30] MEDS ORDERED: ACETAMINOPHEN 325 MG TABLET PO PRN (20:00)
[2017-07-30] MEDS ORDERED: ONDANSETRON PF 4 MG/2 ML VIAL. IV PRN (20:00)
--- NOTE | 2017-07-30 20:22 | EKG ---
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
[2017-07-30 20:56] VITALS: BP 96/67
[2017-07-30 20:59] LABS: % BANDS 7 % (0-9); % LYMPHS 5 % (24-48); % MONOS 8 % (0-10); % SEGS 79 % (35-66)
[2017-07-30 21:00] LABS: PLT ESTIMATE ADEQUATE (ADEQUATE)
[2017-07-30] MEDS ORDERED: MEROPENEM 1 GM in IV NORMAL SALINE 100ML 100 ML IV SCH (21:00)
[2017-07-30 21:01] LABS: % ATYL 1 % (0-0)
[2017-07-30] MEDS: MEROPENEM IV Push 1 GM VIAL. IVP SCH (21:19)
[2017-07-30] MEDS: IV NORMAL SALINE 1,000ML 1,000 ML IV SCH ×2 (21:21→23:19)
[2017-07-30] MEDS ORDERED: VANCOMYCIN 2 GM in IV NORMAL SALINE 500ML 500 ML IV ONE (21:30)
[2017-07-30 21:31] VITALS: BP 93/60
[2017-07-30 22:00] VITALS: BP 105/66
[2017-07-30] MEDS: VANCOMYCIN PER PHARMACY MC PRN (22:11)
[2017-07-30 22:30] VITALS: BP 97/55
[2017-07-30] MEDS: IPRATRPIUM/ALBUTEROL 0.5/2.5MG 3 ML NEBU. NEB SCH (22:48)
[2017-07-30 23:00] VITALS: BP 100/69
[2017-07-30 23:07] LABS: BILIRUBIN,URINE SMALL (NEG); CLARITY,URINE CLOUDY; COLOR,URINE YELLOW; GLUCOSE,URINE NEG (NEG); NITRITE,URINE NEG (NEG); UROBILINOGEN,URINE 0.2 mg/dL (0.2 mg/dL)
[2017-07-30 23:08] LABS: BACTERIA,URINE MOD /HPF (0-FEW); WBC,URINE >40 /HPF (0-4)
[2017-07-30] MEDS: ENOXAPARIN 40 MG/0.4 ML DISP.SYRIN. SQ SCH (23:20)
[2017-07-30 23:30] VITALS: BP 116/70
[2017-07-31] VITALS (23 sets, daily range): BP systolic 106–152; BP diastolic 56–85
[2017-07-31] MEDS: IV NORMAL SALINE 1,000ML 1,000 ML IV SCH (03:26)
[2017-07-31] MEDS ORDERED: LIRA0.6P2 SQ (03:37)
[2017-07-31] MEDS ORDERED: NA P133E2 RC (03:37)
[2017-07-31] MEDS ORDERED: MEDR5TAB PO (03:37)
[2017-07-31] MEDS ORDERED: INSU100I27 SQ (03:37)
[2017-07-31] MEDS ORDERED: ARGI1POW19 PO (03:37)
[2017-07-31] MEDS ORDERED: WARF6TAB PO (03:37)
[2017-07-31] MEDS ORDERED: BISA10SU55 RC (03:37)
[2017-07-31] MEDS ORDERED: ACET500T68 PO (03:37)
[2017-07-31] MEDS ORDERED: MAGN2400 PO (03:37)
[2017-07-31] MEDS ORDERED: ONDA4TAB10 PO (03:37)
[2017-07-31] MEDS ORDERED: CRAN400C PO (03:37)
[2017-07-31] MEDS: IPRATRPIUM/ALBUTEROL 0.5/2.5MG 3 ML NEBU. NEB SCH ×3 (05:57→15:34)
[2017-07-31 07:09] LABS: BASO % 0 % (0-3); EOS % 0 % (0-3); HEMATOCRIT 45.3 % (39.0-53.0); HEMOGLOBIN 15.3 g/dL (13.0-17.5); LYMPH # 1.2 x10^3/uL (1.0-4.8); LYMPH % 7 % (24-48); MEAN CORPUSCULAR HEMOGLOBIN 31 pg (25-35); MEAN CORPUSCULAR HGB CONC 34 g/dL (31-37); MEAN CORPUSCULAR VOLUME 92 fL (79-100); MONO % 12 % (0-9); NEUT # 13.2 x10^3uL (1.8-7.7); NEUT % 80 % (31-73); PLATELET COUNT 167 x10^3/uL (140-400); RED BLOOD COUNT 4.92 x10^6/uL (4.30-5.70); RED CELL DISTRIBUTION WIDTH 14.8 % (11.5-14.5); WHITE BLOOD COUNT 16.4 x10^3/uL (4.0-11.0)
[2017-07-31 07:21] LABS: ALBUMIN 2.1 g/dL (3.4-5.0); ALBUMIN/GLOBULIN RATIO 0.7 (1.0-1.7); CALCIUM 7.9 mg/dL (8.5-10.1); CREATININE 1.7 mg/dL (0.7-1.3); GFR 39.4; POTASSIUM 3.4 mmol/L (3.5-5.1); TOTAL BILIRUBIN 0.2 mg/dL (0.2-1.0)
--- NOTE | 2017-07-31 07:29 | RAD ---
Single view chest 07/30/2017 Clinical indication: Shortness of breath. Comparison: Chest 01/24/2017. Findings: There is stable mild elevation of the right hemidiaphragm with a gaseous distended loop of bowel beneath the right hemidiaphragm. There is mild right basilar atelectasis or scarring. Cardiac and mediastinal silhouettes are stable. Calcified atheromatous disease of the thoracic aortic arch. There are scattered areas of pleural-parenchymal scarring in both lungs. No pleural effusion, pneumothorax or focal consolidation. Impression: 1. No acute cardiopulmonary abnormality. 2. Stable elevation of the right hemidiaphragm.
[2017-07-31] MEDS ORDERED: ACETAMINOPHEN 500 MG TABLET PO PRN (07:45)
[2017-07-31] MEDS ORDERED: INSULIN ASPART 300 UNITS/3 ML INSULN.PEN SQ SCH (08:00)
[2017-07-31] MEDS ORDERED: DEXTROSE 50% 25 GM / 50ML DISP.SYRIN. IV PRN (08:15)
[2017-07-31] MEDS: medroxyPROGESTERone 5 MG TABLET PO SCH (08:53)
[2017-07-31] MEDS: MULTIVITAMIN with MINERAL TABLET. PO SCH (08:53)
[2017-07-31] MEDS: DIVALPROEX SODIUM 250 MG TABLET.DR. PO SCH ×3 (08:53→21:47)
[2017-07-31] MEDS: LEVOTHYROXINE 137 MCG TABLET PO SCH (08:53)
[2017-07-31] MEDS: POTASSIUM CHLORIDE 20 MEQ TABLET.ER. PO SCH (08:54)
[2017-07-31] MEDS: amLODIPine BESYLATE 10 MG TABLET PO SCH (08:54)
[2017-07-31] MEDS: FAMOTIDINE 20 MG TABLET PO SCH ×2 (08:54→21:47)
[2017-07-31] MEDS: LEVOTHYROXINE 25 MCG TABLET. PO SCH (08:54)
[2017-07-31] MEDS ORDERED: NON FORMULARY ITEM (Liraglutide (Victoza 3-Pak) 1.8 MG) SQ SCH (09:00)
[2017-07-31] MEDS: MEROPENEM IV Push 1 GM VIAL. IVP SCH ×2 (09:00→21:48)
[2017-07-31] MEDS: INSULIN DETEMIR 300 UNITS/3 ML INSULN.PEN. SQ SCH ×2 (09:05→21:00)
--- NOTE | 2017-07-31 10:03 | PDOC2 ---
TA RODRIGUEZ BUFFERER 07/31/17 1003: CONSULT Date of Admission DATE: 07/31/17 TIME: 09:57 Reason for Consult: chf Problem List Problems Medical Problems: (1) Acute renal failure Status: Acute (2) Acute respiratory failure Status: Acute (3) Dehydration Status: Acute (4) DKA (diabetic ketoacidoses) Status: Acute (5) Lactic acidosis Status: Acute (6) Leukocytosis Status: Acute History of Present Illness Mr Perry is a 77 year old male who presents from a skilled nursing in [place]. He is currently confused and denies any medical problems. History is obtained from the chart. He apparently was brought to the ED with complaints of shortness of breath over the past 2-3 months with worsening over the past 2-3 weeks. He was started on oxygen to 3 weeks ago and felt that his symptoms of been improving somewhat since then. He was noted to be hypotensive and tachycardic with elevated blood sugar, leukocytosis, lactic acidosis. Consult was called for dyspnea and possible heart failure. He denied chest pain, fever , chills or other associated symptoms while in the ED. He reported symptoms were exacerbated with minimal activity and improved with relative rest. He currently denies symptoms but is mildly tachypneic. 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 Endocrine: Diabetes, Hypothyroidism Past Surgical History: No pertinent history Family History: No pertinent hx Past Surgical History unobtainable Family History non contributory due to age Social History Smoke: No Alcohol: none Drugs: None [facility] Current Medications Current Medications Insulin Human Regular (NovoLIN R) 10 unit 1X ONCE IV Last administered on 07/30at 18:23; Start 07/30/17 at 18:00; Stop 07/30/17 at 18:01; Status DC Sodium Chloride 1,000 ml @ 100 mls/hr 1X ONCE IV Last administered on at 18:00; Start 07/30/17 at 18:00; Stop 07/31/17 at 04:00; Status DC Albuterol Sulfate (Ventolin) 2.5 mg 1X ONCE NEB ; Start 07/30/17 at 18:00; Stop 07/30/17 at 18:01; Status DC Sodium Chloride 1,000 ml @ 0 mls/hr Q0M IV Last administered on 07/31/17at 03: 26; Start 07/30/17 at 19:45 Dextrose/Sodium Chloride 1,000 ml @ 0 mls/hr Q0M IV ; Start 07/30/17 at 19:35 Insulin Human Regular 150 unit/ Sodium Chloride 151.5 ml @ 0 mls/hr CONT PRN PRN IV PER PROTOCOL Last administered on 07/30/17at 23:18; Start 07/30/17 at 19: 45 Ondansetron HCl (Zofran) 4 mg PRN Q4HRS PRN IV NAUSEA/VOMITING; Start 07/30/17 at 20:00; Stop 07/31/17 at 19:59 Acetaminophen (Tylenol) 650 mg PRN Q4HRS PRN PO FEVER; Start 07/30/17 at 20:00 ; Stop 07/31/17 at 08:27; Status DC Albuterol/ Ipratropium (Duoneb) 3 ml RTQID NEB Last administered on 07/31/17at 09:35; Start 07/30/17 at 20:00; Stop 07/31/17 at 19:59 Vancomycin HCl (Vanco Per Pharmacy) 1 each PRN DAILY PRN MC SEE COMMENTS Last administered on 07/30/17at 22:11; Start 07/30/17 at 20:00 Meropenem 1 gm/ Sodium Chloride 100 ml @ 200 mls/hr Q12HR IV ; Start 07/30/17 at 21:00; Stop 07/30/17 at 21:00; Status DC Levofloxacin/ Dextrose (Levaquin Per Pharmacy) 1 each PRN DAILY PRN MC SEE COMMENTS; Start 07/30/17 at 20:00 Vancomycin HCl 2 gm/Sodium Chloride 500 ml @ 250 mls/hr 1X ONCE IV Last administered on 07/30/17at 21:20; Start 07/30/17 at 21:30; Stop 07/30/17 at 23:29 ; Status DC Levofloxacin/ Dextrose 150 ml @ 150 mls/hr Q48H IV Last administered on at 21:17; Start 07/30/17 at 20:30 Meropenem (Merrem) 1 gm Q12HR IVP Last administered on 07/31/17at 09:00; Start 07/30/17 at 21:00 Vancomycin HCl 2 gm/Sodium Chloride 500 ml @ 250 mls/hr Q24H IV ; Start at 21:30 Vancomycin HCl (Vancomycin Trough Level) 1 each 1X ONCE MC ; Start 08/01/17 at 21:00; Stop 08/01/17 at 21:01 Enoxaparin Sodium (Lovenox) 40 mg Q24H SQ Last administered on 07/30/17at 23:20 ; Start 07/30/17 at 22:45 Acetaminophen (Tylenol) 500 mg PRN Q4HRS PRN PO PAIN / TEMP; Start 07/31/17 at 07:45 Amlodipine Besylate (Norvasc) 10 mg DAILY PO ; Start 07/31/17 at 09:00 Divalproex Sodium (Depakote) 375 mg DAILY PO Last administered on 07/31/17at 08: 53; Start 07/31/17 at 09:00 Famotidine (Pepcid) 20 mg BID PO Last administered on 07/31/17at 08:54; Start at 09:00 Finasteride (Proscar) 5 mg HS PO ; Start 07/31/17 at 21:00 Fluvoxamine Maleate (Luvox) 100 mg DAILY PO Last administered on 07/31/17at 08: 54; Start 07/31/17 at 09:00 Insulin Aspart (NovoLOG) 1 units TIDWMEALS SQ ; Start 07/31/17 at 08:00; Status UNV Insulin Detemir (Levemir) 20 units BID SQ Last administered on 07/31/17at 09:05 ; Start 07/31/17 at 09:00 Levothyroxine Sodium (Synthroid) 25 mcg DAILY07 PO Last administered on at 08:54; Start 07/31/17 at 08:00 Levothyroxine Sodium (Synthroid) 137 mcg DAILY07 PO Last administered on at 08:53; Start 07/31/17 at 08:00 Medroxyprogesterone Acetate (Provera) 5 mg DAILY PO Last administered on at 08:53; Start 07/31/17 at 09:00 Potassium Chloride (Klor-Con) 40 meq DAILY PO Last administered on 07/31/17at 08 :54; Start 07/31/17 at 09:00 Divalproex Sodium (Depakote) 500 mg BID PO Last administered on 07/31/17at 08:55 ; Start 07/31/17 at 09:00 Doxazosin Mesylate (Cardura) 8 mg QHS PO ; Start 07/31/17 at 21:00 Non-Formulary Medication 1.8 mg DAILY SQ ; Start 07/31/17 at 09:00; Status UNV Multivitamins/ Calcium (Thera-M Plus) 1 tab DAILY PO Last administered on at 08:53; Start 07/31/17 at 09:00 Insulin Aspart (NovoLOG) 0-7 UNITS QIDACHS SQ ; Start 07/31/17 at 11:30 Dextrose 12.5 gm PRN Q15MIN PRN IV SEE COMMENTS; Start 07/31/17 at 08:15 Active Scripts Active Reported Milk Of Magnesia (Magnesium Hydroxide) 2,400 Mg/10 Ml Oral.susp 2,400 Mg PO PRN DAILY PRN LAST DOSE GIVEN: DATE: TIME: NEXT DOSE DUE: DATE: TIME: Fleet Enema (Na Phos,M-B/Na Phos,Di-Ba) 133 Ml Enema 133 Ml RC PRN DAILY PRN LAST DOSE GIVEN: DATE: TIME: NEXT DOSE DUE: DATE: TIME: Zofran Odt (Ondansetron) 4 Mg Tab.rapdis 4 Mg PO PRN Q8HRS PRN LAST DOSE GIVEN: DATE: TIME: NEXT DOSE DUE: DATE: TIME: Dulcolax (Bisacodyl) 10 Mg Supp.rect 10 Mg RC PRN DAILY PRN LAST DOSE GIVEN: DATE: TIME: NEXT DOSE DUE: DATE: TIME: Acetaminophen 500 Mg Tablet 500 Mg PO PRN Q4HRS PRN LAST DOSE GIVEN: DATE: TIME: NEXT DOSE DUE: DATE: TIME: Provera (Medroxyprogesterone Acetate) 5 Mg Tablet 5 Mg PO DAILY LAST DOSE GIVEN: DATE: TIME: NEXT DOSE DUE: DATE: TIME: Levemir Flextouch (Insulin Detemir) 100 Unit/1 Ml Insuln.pen 20 Unit SQ BID LAST DOSE GIVEN: DATE: TIME: NEXT DOSE DUE: DATE: TIME: Cranberry 400 Mg Capsule 400 Mg PO BID LAST DOSE GIVEN: DATE: TIME: NEXT DOSE DUE: DATE: TIME: Arginaid Powder (Arginine/Ascorbate Sod/Marilyn AC) 1 Each Powd.pack 1 Packet PO BID LAST DOSE GIVEN: DATE: TIME: NEXT DOSE DUE: DATE: TIME: Victoza 3-Rio (Liraglutide) 0.6 Mg/0.1 Ml Pen.injctr 1.8 Mg SQ DAILY LAST DOSE GIVEN: DATE: TIME: NEXT DOSE DUE: DATE: TIME: Coumadin (Warfarin Sodium) 6 Mg Tablet 6 Mg PO DAILY LAST DOSE GIVEN: DATE: TIME: NEXT DOSE DUE: DATE: TIME: Trazodone Hcl 100 Mg Tablet 50 Tab PO QHS LAST DOSE GIVEN: DATE: TIME: NEXT DOSE DUE: DATE: TIME: Multi-Day Vitamins (Multivitamin) 1 Each Tablet 1 Tab PO DAILY LAST DOSE GIVEN: DATE: TIME: NEXT DOSE DUE: DATE: TIME: Klor-Con M20 (Potassium Chloride) 20 Meq Tab.er.prt 40 Meq PO DAILY LAST DOSE GIVEN: DATE: TIME: NEXT DOSE DUE: DATE: TIME: Omeprazole 20 Mg Capsule.dr 20 Mg PO DAILYAC LAST DOSE GIVEN: DATE: TIME: NEXT DOSE DUE: DATE: TIME: Novolog Flexpen (Insulin Aspart) 100 Unit/1 Ml Insuln.pen 1 Unit SQ TIDWMEALS LAST DOSE GIVEN: DATE: TIME: NEXT DOSE DUE: DATE: TIME: Synthroid (Levothyroxine Sodium) 25 Mcg Tablet 25 Mcg PO DAILY08 LAST DOSE GIVEN: DATE: TIME: NEXT DOSE DUE: DATE: TIME: Synthroid (Levothyroxine Sodium) 137 Mcg Tablet 137 Tab PO DAILY08 LAST DOSE GIVEN: DATE: TIME: NEXT DOSE DUE: DATE: TIME: Fluvoxamine Maleate 100 Mg Tablet 100 Mg PO DAILY LAST DOSE GIVEN: DATE: TIME: NEXT DOSE DUE: DATE: TIME: Finasteride 5 Mg Tablet 5 Mg PO HS LAST DOSE GIVEN: DATE: TIME: NEXT DOSE DUE: DATE: TIME: Famotidine 20 Mg Tablet 20 Tab PO BID LAST DOSE GIVEN: DATE: TIME: NEXT DOSE DUE: DATE: TIME: Doxazosin Mesylate 8 Mg Tablet 8 Mg PO QHS LAST DOSE GIVEN: DATE: TIME: NEXT DOSE DUE: DATE: TIME: Divalproex Sodium 500 Mg Tablet.dr 500 Mg PO BID LAST DOSE GIVEN: DATE: TIME: NEXT DOSE DUE: DATE: TIME: Divalproex Sodium 250 Mg Tablet.dr 375 Mg PO DAILY LAST DOSE GIVEN: DATE: TIME: NEXT DOSE DUE: DATE: TIME: Amlodipine Besylate 10 Mg Tablet 10 Mg PO DAILY LAST DOSE GIVEN: DATE: TIME: NEXT DOSE DUE: DATE: TIME: Allergies: Coded Allergies: Penicillins (Verified Allergy, Intermediate, hives, 10/16/13) Review of System as per HPI otherwise currently unobtainable General: Alert, Cooperative, mild distress Lungs: Other (decreased bases bilaterally) Abdomen: Normal bowel sounds, Other (r &L lower quadrent tenderness) Extremities: No cyanosis, No edema Skin: No significant lesion (powdery white rash on face, ? uremic cordero) Psych/Mental Status: Mood NL, Other (pleasantly confused) VITALS Vital Signs Date Time Temp Pulse Resp B/P (MAP) Pulse Ox O2 Delivery O2 Flow Rate FiO2 07/31/17 09:35 95 Nasal Cannula 3.0 07/31/17 09:00 112 121/78 (92) 07/31/17 06:35 24 07/31/17 05:10 97.4 Labs Laboratory Tests Test 07/30/17 17:51 07/30/17 17:55 07/30/17 18:56 07/30/17 19:21 Glucose (Fingerstick) 437 mg/dL (70-99) 351 mg/dL (70-99) White Blood Count 23.9 x10^3/uL (4.0-11.0) Red Blood Count 5.83 x10^6/uL (4.30-5.70) Hemoglobin 17.9 g/dL (13.0-17.5) Hematocrit 56.3 % (39.0-53.0) Mean Corpuscular Volume 97 fL (79-100) Mean Corpuscular Hemoglobin 31 pg (25-35) Mean Corpuscular Hemoglobin Concent 32 g/dL (31-37) Red Cell Distribution Width 15.7 % (11.5-14.5) Platelet Count 266 x10^3/uL (140-400) Neutrophils (%) (Auto) 81 % (31-73) Lymphocytes (%) (Auto) 6 % (24-48) Monocytes (%) (Auto) 13 % (0-9) Eosinophils (%) (Auto) 0 % (0-3) Basophils (%) (Auto) 0 % (0-3) Neutrophils # (Auto) 19.3 x10^3uL (1.8-7.7) Lymphocytes # (Auto) 1.3 x10^3/uL (1.0-4.8) Monocytes # (Auto) 3.2 x10^3/uL (0.0-1.1) Eosinophils # (Auto) 0.0 x10^3/uL (0.0-0.7) Basophils # (Auto) 0.0 x10^3/uL (0.0-0.2) Segmented Neutrophils % 79 % (35-66) Band Neutrophils % 7 % (0-9) Lymphocytes % 5 % (24-48) Atypical Lymphocytes % (Manual) 1 % (0-0) Monocytes % 8 % (0-10) Platelet Estimate Adequate (ADEQUATE) Sodium Level 138 mmol/L (136-145) Potassium Level 4.0 mmol/L (3.5-5.1) Chloride Level 100 mmol/L (98-107) Carbon Dioxide Level 13 mmol/L (21-32) Anion Gap 25 (6-14) Blood Urea Nitrogen 50 mg/dL (8-26) Creatinine 2.4 mg/dL (0.7-1.3) Estimated GFR (Cockcroft-Gault) 26.5 BUN/Creatinine Ratio 21 (6-20) Glucose Level 450 mg/dL (70-99) Lactic Acid Level 12.1 mmol/L (0.4-2.0) Calcium Level 8.7 mg/dL (8.5-10.1) Phosphorus Level 5.3 mg/dL (2.6-4.7) Total Bilirubin 0.4 mg/dL (0.2-1.0) Aspartate Amino Transf (AST/SGOT) 20 U/L (15-37) Alanine Aminotransferase (ALT/SGPT) 30 U/L (16-63) Alkaline Phosphatase 48 U/L (46-116) Troponin I Quantitative 0.097 ng/mL (0-0.055) XS-Cek-A-Type Natriuretic Peptide 1370 pg/mL (0-449) Total Protein 6.4 g/dL (6.4-8.2) Albumin 2.6 g/dL (3.4-5.0) Albumin/Globulin Ratio 0.7 (1.0-1.7) Acetone Level Neg (NEG) Blood Gas pH 7.22 (7.35-7.46) Blood Gas PCO2 22 mmHg (35-46) Blood Gas PO2 192 mmHg (71-100) Blood Gas HCO3 9 mmol/L (21-28) Arterial Bld O2 Saturation (Calc) 99 % (92-99) FiO2 50 % Test 07/30/17 21:33 07/30/17 22:10 07/30/17 22:15 07/30/17 23:15 Glucose (Fingerstick) 271 mg/dL (70-99) 283 mg/dL (70-99) Urine Collection Type Unknown Urine Color Yellow Urine Clarity Cloudy Urine pH 5.0 Urine Specific Dille 1.020 Urine Protein 100 mg/dl (NEG-TRACE) Urine Glucose (UA) Neg mg/dL (NEG) Urine Ketones (Stick) 15 mg/dL (NEG) Urine Blood Large (NEG) Urine Nitrite Neg (NEG) Urine Bilirubin Small (NEG) Urine Urobilinogen Dipstick 0.2 mg/dL (0.2 mg/dL) Urine Leukocyte Esterase Mod (NEG) Urine RBC 11-20 /HPF (0-2) Urine WBC >40 /HPF (0-4) Urine Squamous Epithelial Cells None /LPF Urine Bacteria Mod /HPF (0-FEW) Lactic Acid Level 7.4 mmol/L (0.4-2.0) Test 07/31/17 00:13 07/31/17 01:13 07/31/17 02:20 07/31/17 03:19 Glucose (Fingerstick) 298 mg/dL (70-99) 251 mg/dL (70-99) 231 mg/dL (70-99) 105 mg/dL (70-99) Test 07/31/17 03:23 07/31/17 04:23 07/31/17 05:27 07/31/17 05:55 Glucose (Fingerstick) 150 mg/dL (70-99) 126 mg/dL (70-99) 108 mg/dL (70-99) White Blood Count 16.4 x10^3/uL (4.0-11.0) Red Blood Count 4.92 x10^6/uL (4.30-5.70) Hemoglobin 15.3 g/dL (13.0-17.5) Hematocrit 45.3 % (39.0-53.0) Mean Corpuscular Volume 92 fL (79-100) Mean Corpuscular Hemoglobin 31 pg (25-35) Mean Corpuscular Hemoglobin Concent 34 g/dL (31-37) Red Cell Distribution Width 14.8 % (11.5-14.5) Platelet Count 167 x10^3/uL (140-400) Neutrophils (%) (Auto) 80 % (31-73) Lymphocytes (%) (Auto) 7 % (24-48) Monocytes (%) (Auto) 12 % (0-9) Eosinophils (%) (Auto) 0 % (0-3) Basophils (%) (Auto) 0 % (0-3) Neutrophils # (Auto) 13.2 x10^3uL (1.8-7.7) Lymphocytes # (Auto) 1.2 x10^3/uL (1.0-4.8) Monocytes # (Auto) 2.0 x10^3/uL (0.0-1.1) Eosinophils # (Auto) 0.0 x10^3/uL (0.0-0.7) Basophils # (Auto) 0.0 x10^3/uL (0.0-0.2) Prothrombin Time 72.2 SEC (9.4-11.4) Prothromb Time International Ratio 7.3 (0.9-1.1) Sodium Level 142 mmol/L (136-145) Potassium Level 3.4 mmol/L (3.5-5.1) Chloride Level 110 mmol/L (98-107) Carbon Dioxide Level 19 mmol/L (21-32) Anion Gap 13 (6-14) Blood Urea Nitrogen 58 mg/dL (8-26) Creatinine 1.7 mg/dL (0.7-1.3) Estimated GFR (Cockcroft-Gault) 39.4 BUN/Creatinine Ratio 34 (6-20) Glucose Level 112 mg/dL (70-99) Calcium Level 7.9 mg/dL (8.5-10.1) Magnesium Level 1.8 mg/dL (1.8-2.4) Total Bilirubin 0.2 mg/dL (0.2-1.0) Aspartate Amino Transf (AST/SGOT) 25 U/L (15-37) Alanine Aminotransferase (ALT/SGPT) 25 U/L (16-63) Alkaline Phosphatase 31 U/L (46-116) Total Protein 5.0 g/dL (6.4-8.2) Albumin 2.1 g/dL (3.4-5.0) Albumin/Globulin Ratio 0.7 (1.0-1.7) Test 07/31/17 06:30 07/31/17 07:33 07/31/17 08:35 Glucose (Fingerstick) 93 mg/dL (70-99) 115 mg/dL (70-99) 133 mg/dL (70-99) Images EKG - sinus tachycardia, IWMI age undetermined, 1st degree AV block, no acute ischemic changes. CXR - Impression: 1. No acute cardiopulmonary abnormality. 2. Stable elevation of the right hemidiaphragm. Assessment/Plan 1. chf - no overt heart failure, check echo, monitor I/Os, daily weight 2. urosepsis with lactic acidosis - fluids and abx per PCP 3. hyperglycemia - less likely DKA, mgmt per PCP 4. hypertension - controlled 5. acute renal failure - Cr improving. near baseline of about 1.6 6. atrial fibrillation - currently sinus. warfarin on hold due to elevated INR. Will check echo for LV function, Continue telemetry and supportive care. Problems: GIA ROGERS MD 07/31/17 1422: CONSULT Allergies: Coded Allergies: Penicillins (Verified Allergy, Intermediate, hives, 10/16/13) Assessment/Plan Patient seen and examined. 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 Agree that patient does not have any overt signs of congestive heart failure Check 2-D echo to assess LV systolic function Patient history of paroxysmal atrial fibrillation but presently in sinus rhythm Continue treatment of urosepsis per IM Thank you for your consultation Problems: TA RODRIGUEZ APRN Jul 31, 2017 10:03 GIA ROGERS MD Jul 31, 2017 14:22
[2017-07-31] MEDS: INSULIN ASPART 300 UNITS/3 ML INSULN.PEN SQ SCH ×3 (11:59→21:00)
[2017-07-31 14:03] LABS: FECAL OB PT POSITIVE (NEG)
[2017-07-31 14:34] LABS: HEMATOCRIT 45.2 % (39.0-53.0); RED BLOOD COUNT 4.86 x10^6/uL (4.30-5.70); RED CELL DISTRIBUTION WIDTH 15.4 % (11.5-14.5); WHITE BLOOD COUNT 15.8 x10^3/uL (4.0-11.0)
[2017-07-31] MEDS ORDERED: VANCOMYCIN 2 GM in IV NORMAL SALINE 500ML 500 ML IV SCH (21:30)
--- NOTE | 2017-07-31 21:40 | HP ---
ADMIT DATE: 07/30/2017 HISTORY OF PRESENT ILLNESS: The patient is a 77-year-old male patient, a resident at a custodial facility in [place], who apparently presented to the Emergency Room with a complaint of shortness of breath over the last 2-3 months, worsening over the past 2-3 weeks. He stated that he was started on oxygen about 3 weeks ago and felt that his symptom has been mildly improving. During the time, he denied any chest pain, fever or chills and he was extensively investigated in the Emergency Room and was admitted with diabetic ketoacidosis, dehydration, acute renal failure, lactic acidosis and acute respiratory acidosis. He was started on IV fluid, insulin drip and IV antibiotic in the form of vancomycin, levofloxacin. His lab work showed that he has marked leukocytosis. Blood gases showed a pH of 7.22, pCO2 of 22, bicarbonate was only 9, and his chemistry showed that has marked lactic acidosis and a BUN of 50, creatinine 2.4, blood sugar was high also 437, was treated with IV fluid and insulin drip. The patient himself is a poor historian, does not give any useful information. PAST MEDICAL HISTORY: Significant for atrial fibrillation, congestive heart failure, hypertension, hyperlipidemia, chronic renal insufficiency, benign prostatic hypertrophy with bladder outlet obstruction requiring chronic indwelling Claros catheter, dementia, type 2 diabetes, hypothyroidism. PAST SURGICAL HISTORY: Unremarkable. ALLERGIES: HE IS ALLERGIC TO PENICILLIN. MEDICATIONS: He is on following medications: He is on Tylenol 500 mg every 4 hours, amlodipine 10 mg once a day, Arginaid powder 1 packet twice a day, bisacodyl 10 mg daily, cranberry tablets 400 mg twice a day, divalproex 375 mg daily, divalproex 500 mg twice a day, doxazosin mesylate 8 mg at bedtime, famotidine 20 mg twice a day, finasteride 5 mg at bedtime, fluvoxamine maleate 100 mg once a day. He is on NovoLog FlexPen as insulin sliding scale 3 times a day with meals. He is on Levemir 20 units twice a day. Levothyroxine 137 mcg once a day, levothyroxine 25 mcg once a day, liraglutide (Victoza) 1.8 mg subcutaneously daily. He is on magnesium hydroxide for milk of magnesia 30 mL p.o. daily p.r.n. for constipation, Provera 5 mg daily, multivitamin 1 tablet once a day, omeprazole 20 mg once a day, ondansetron 4 mg every 8 hours, potassium chloride 20 mEq once a day, trazodone 100 mg daily and warfarin sodium 6 mg daily. FAMILY HISTORY: Unremarkable. SOCIAL HISTORY: He is a resident at custodial facility in [place]. He does not smoke, drink alcohol or use any recreational drugs. REVIEW OF SYSTEMS: Unobtainable. The patient is extremely demented and does not give any useful information. PHYSICAL EXAMINATION: GENERAL: On arrival to the Emergency Room, the patient was slightly pale, but no jaundice, cyanosis, or thyromegaly. No jugular venous distention. No lower limb edema. VITAL SIGNS: His heart rate was 106, blood pressure was 126/66, temperature was 97.4, respiratory rate was 28 and oxygen saturation was 97% on 15 liters nonrebreather mask. HEAD, EYES, EARS, NOSE AND THROAT: Showed normocephalic, atraumatic. NECK: Supple. HEART: Showed normal first and second sounds. No gallop, rub or murmur. CHEST: Clear to auscultation. No crepitation or rhonchi. ABDOMEN: Distended, soft, nontender. No guarding or rigidity. No organomegaly. All hernial orifices intact. Bowel sounds normal. NEUROLOGIC: He is awake, alert, but confused. All his cranial nerves intact. He moves upper extremities to much good extent than lower extremities. He has an indwelling Claros catheter. He apparently has Ha lift. LABORATORY DATA: On arrival to the Emergency Room, his lab work showed that his serum sodium was 138, potassium 4, chloride 100, bicarbonate 13, anion gap of 25, BUN 50, creatinine 2.4, estimated GFR was 26 mL per minute. His glucose was 450. Calcium was 8.7. Total bilirubin, AST, ALT, alkaline phosphatase were normal. His beta natriuretic peptide was 1370, total protein 6.4, albumin 2.6. Lactic acid was high at 12. His white cell count was 23,900, hemoglobin 17.9, hematocrit 56, MCV was 97 and platelet count 266,000 with normal manual differential. His prothrombin time was 72.2, INR of 7.3. Urinalysis showed the urine was yellow, cloudy with a pH of 5, specific gravity 1.020. There was large amount of protein, negative for glucose, trace of ketones, large amount of blood, negative for nitrite. There was a moderate amount of leukocyte esterase, 11-20 rbc's, more than 40 wbc's, moderate amount of bacteria. Toxicology showed acetone level was negative. His stool for occult blood was positive. He has a chest x-ray showed that there is stable mild elevation of his right hemidiaphragm with a gaseous distended loops of bowel beneath the right hemidiaphragm. There is mild right basilar atelectasis or scarring. Cardiac and mediastinal silhouette are stable. Calcified atheromatous disease of the thoracic aortic arch. There are scattered areas of parenchymal scarring in both lungs. No pleural effusion, no pneumothorax or focal consolidation. ASSESSMENT AND PLAN: The patient was admitted with DKA, although he has no acetone in his urine. There is no acetone in the blood, but mild ketones in the urine. He was given IV fluid and insulin drip and also started on IV antibiotic. As he is allergic to penicillin, he was started on levofloxacin as well as vancomycin, and continued on all his other medication. We will follow his blood sugar and obviously an indwelling Claros catheter makes the urinary tract infection highly likely the cause of sepsis, and if blood cultures remain negative by tomorrow, we will discontinue vancomycin and continue with Levaquin only. REID BYERS MD DR: MAHAD/paulie JOB#: [id number] / [id number]
[2017-07-31] MEDS: FINASTERIDE 5 MG TABLET PO SCH (21:45)
[2017-07-31] MEDS: LACTOBACILLUS RHAMNOSUS GG 1 CAPSULE. PO SCH (21:47)
[2017-07-31] MEDS: DOXAZOSIN MESYLATE 4 MG TABLET PO SCH (21:47)
[2017-07-31] MEDS: ENOXAPARIN 40 MG/0.4 ML DISP.SYRIN. SQ SCH (21:49)
[2017-08-01] VITALS (15 sets, daily range): BP systolic 111–172; BP diastolic 67–92
[2017-08-01] MEDS: LEVOTHYROXINE 25 MCG TABLET. PO SCH (06:00)
[2017-08-01] MEDS: LEVOTHYROXINE 137 MCG TABLET PO SCH (06:00)
[2017-08-01 06:10] LABS: BASO % 0 % (0-3); EOS % 0 % (0-3); HEMATOCRIT 38.8 % (39.0-53.0); LYMPH # 1.1 x10^3/uL (1.0-4.8); LYMPH % 9 % (24-48); MEAN CORPUSCULAR HEMOGLOBIN 31 pg (25-35); MEAN CORPUSCULAR HGB CONC 34 g/dL (31-37); MEAN CORPUSCULAR VOLUME 92 fL (79-100); MONO # 1.5 x10^3/uL (0.0-1.1); MONO % 13 % (0-9); NEUT % 78 % (31-73); PLATELET COUNT 130 x10^3/uL (140-400); RED CELL DISTRIBUTION WIDTH 15.1 % (11.5-14.5); WHITE BLOOD COUNT 11.6 x10^3/uL (4.0-11.0)
[2017-08-01 06:29] LABS: ALBUMIN 1.8 g/dL (3.4-5.0); ALBUMIN/GLOBULIN RATIO 0.6 (1.0-1.7); CALCIUM 8.1 mg/dL (8.5-10.1); CREATININE 1.5 mg/dL (0.7-1.3); GFR 45.5; POTASSIUM 3.5 mmol/L (3.5-5.1); TOTAL BILIRUBIN 0.3 mg/dL (0.2-1.0)
[2017-08-01] MEDS: INSULIN ASPART 300 UNITS/3 ML INSULN.PEN SQ SCH ×4 (08:27→20:44)
[2017-08-01] MEDS: MEROPENEM IV Push 1 GM VIAL. IVP SCH (08:32)
[2017-08-01] MEDS: FAMOTIDINE 20 MG TABLET PO SCH ×2 (08:33→20:43)
[2017-08-01] MEDS: DIVALPROEX SODIUM 250 MG TABLET.DR. PO SCH ×3 (08:33→20:43)
[2017-08-01] MEDS: MULTIVITAMIN with MINERAL TABLET. PO SCH (08:33)
[2017-08-01] MEDS: POTASSIUM CHLORIDE 20 MEQ TABLET.ER. PO SCH (08:33)
[2017-08-01] MEDS: medroxyPROGESTERone 5 MG TABLET PO SCH (08:33)
[2017-08-01] MEDS: amLODIPine BESYLATE 10 MG TABLET PO SCH (08:33)
[2017-08-01] MEDS: LACTOBACILLUS RHAMNOSUS GG 1 CAPSULE. PO SCH ×2 (08:34→20:42)
[2017-08-01] MEDS: INSULIN DETEMIR 300 UNITS/3 ML INSULN.PEN. SQ SCH ×2 (08:40→20:44)
--- NOTE | 2017-08-01 09:50 | CARD ---
MR#: [id number] Date of Study: 07/31/2017 Ordering Physician: TA RODRIGUEZ, Referring Physician: REID BYERS Tech: QUOC Brito APPROVED REPORT EXAM: Two-dimensional and M-mode echocardiogram with Doppler and color Doppler. Other Information Quality : PoorHR: 68bpm Technically limited study due to body habitus. INDICATION Hypertension/HCVD RISK FACTORS Hypertension Obesity Diabetes 2D DIMENSIONS LVOT Diameter2.4 (1.8-2.4cm) Aortic Valve AoV Peak Mathew.196.5cm/sAoV VTI27.9cm AO Peak GR.15.5mmHgLVOT Peak Mathew.140.5cm/s AO Mean GR.9mmHgAVA (VMAX)3.24cm2 Mitral Valve MV E Uh[place]bfah31.3cm/sMV DECEL [id number] MV A Ruirzidc41.2cm/sE/A Ratio1.7 LEFT VENTRICLE Technically difficult study. The left ventricle is normal size. The left ventricle is borderline enla rged. There is borderline to mild concentric left ventricular hypertrophy. The left ventricular systo lic function appears normal. The ejection fraction is estimated at 50%. RIGHT VENTRICLE The right ventricle is normal size. The right ventricular systolic function is normal. ATRIA The left atrium size is normal. The right atrium size is normal. AORTIC VALVE The aortic valve is thickened but opens well. Doppler and Color Flow revealed no significant aortic r egurgitation. There is no significant aortic valvular stenosis. MITRAL VALVE The mitral valve is mildly thickened. There is no evidence of mitral valve prolapse. There is no mitr al valve stenosis. Doppler and Color-flow revealed mild mitral regurgitation. TRICUSPID VALVE The tricuspid valve leaflets are thickened , but open well. Doppler and Color Flow revealed trace tri cuspid regurgitation. There is no tricuspid valve prolapse or vegetation. There is no tricuspid valve stenosis. PULMONIC VALVE The pulmonic valve is not well visualized. GREAT VESSELS The aortic root is normal in size. The IVC is normal in size and collapses >50% with inspiration. PERICARDIAL EFFUSION There is no pleural effusion. There is no evidence of significant pericardial effusion. Critical Notification Critical Value: No <Conclusion> Technically difficult study. The left ventricle is normal size. The left ventricular systolic function appears normal. The ejection fraction is estimated at 50%. There is no significant aortic valvular stenosis. Doppler and Color Flow revealed no significant aortic regurgitation. Doppler and Color-flow revealed mild mitral regurgitation. Doppler and Color Flow revealed trace tricuspid regurgitation. There is no evidence of significant pericardial effusion. Signed by : Simon Aguirre MD Electronically Approved : 08/01/2017 09:49:35
[2017-08-01] MEDS ORDERED: PHYTONADIONE 10 MG/ML AMPUL. SQ ONE (10:30)
--- NOTE | 2017-08-01 11:21 | PDOC ---
SUBJECTIVE: Patient seen and examined Mildly improved. OBJECTIVE: Problems: Problems Medical Problems: (1) Acute renal failure Status: Acute (2) Acute respiratory failure Status: Acute (3) Dehydration Status: Acute (4) DKA (diabetic ketoacidoses) Status: Acute (5) Lactic acidosis Status: Acute (6) Leukocytosis Status: Acute 1. chf - no overt heart failure, ECHO with intact LV systolic function and mild MR. Continue present treatment. 2. urosepsis with lactic acidosis - fluids and abx per PCP 3. hyperglycemia - mgmt per PCP 4. hypertension - controlled 5. acute renal failure - Cr improving. near baseline of about 1.6 6. atrial fibrillation - currently sinus. warfarin on hold due to elevated INR. Vital Signs: Vital Signs Date Time Temp Pulse Resp B/P (MAP) Pulse Ox O2 Delivery O2 Flow Rate FiO2 08/01/17 10:00 92 139/72 (94) 08/01/17 08:00 Nasal Cannula 3.0 08/01/17 06:07 20 97 07/31/17 19:51 97.6 I & O Intake and Output 08/01/17 07:00 Intake Total 2460 ml Output Total 1425 ml Balance 1035 ml Intake Oral 2460 ml Output Urine Total 1425 ml # Bowel Movements 4 Labs: Laboratory Tests Test 07/30/17 17:51 07/30/17 17:55 07/30/17 18:07 07/30/17 18:56 Glucose (Fingerstick) 437 mg/dL (70-99) White Blood Count 23.9 x10^3/uL (4.0-11.0) Red Blood Count 5.83 x10^6/uL (4.30-5.70) Hemoglobin 17.9 g/dL (13.0-17.5) Hematocrit 56.3 % (39.0-53.0) Mean Corpuscular Volume 97 fL (79-100) Mean Corpuscular Hemoglobin 31 pg (25-35) Mean Corpuscular Hemoglobin Concent 32 g/dL (31-37) Red Cell Distribution Width 15.7 % (11.5-14.5) Platelet Count 266 x10^3/uL (140-400) Neutrophils (%) (Auto) 81 % (31-73) Lymphocytes (%) (Auto) 6 % (24-48) Monocytes (%) (Auto) 13 % (0-9) Eosinophils (%) (Auto) 0 % (0-3) Basophils (%) (Auto) 0 % (0-3) Neutrophils # (Auto) 19.3 x10^3uL (1.8-7.7) Lymphocytes # (Auto) 1.3 x10^3/uL (1.0-4.8) Monocytes # (Auto) 3.2 x10^3/uL (0.0-1.1) Eosinophils # (Auto) 0.0 x10^3/uL (0.0-0.7) Basophils # (Auto) 0.0 x10^3/uL (0.0-0.2) Segmented Neutrophils % 79 % (35-66) Band Neutrophils % 7 % (0-9) Lymphocytes % 5 % (24-48) Atypical Lymphocytes % (Manual) 1 % (0-0) Monocytes % 8 % (0-10) Platelet Estimate Adequate (ADEQUATE) Sodium Level 138 mmol/L (136-145) Potassium Level 4.0 mmol/L (3.5-5.1) Chloride Level 100 mmol/L (98-107) Carbon Dioxide Level 13 mmol/L (21-32) Anion Gap 25 (6-14) Blood Urea Nitrogen 50 mg/dL (8-26) Creatinine 2.4 mg/dL (0.7-1.3) Estimated GFR (Cockcroft-Gault) 26.5 BUN/Creatinine Ratio 21 (6-20) Glucose Level 450 mg/dL (70-99) Serum Osmolality 335 mOsm/Kg (279-304) Lactic Acid Level 12.1 mmol/L (0.4-2.0) Calcium Level 8.7 mg/dL (8.5-10.1) Phosphorus Level 5.3 mg/dL (2.6-4.7) Total Bilirubin 0.4 mg/dL (0.2-1.0) Aspartate Amino Transf (AST/SGOT) 20 U/L (15-37) Alanine Aminotransferase (ALT/SGPT) 30 U/L (16-63) Alkaline Phosphatase 48 U/L (46-116) Troponin I Quantitative 0.097 ng/mL (0-0.055) YT-Hvk-Y-Type Natriuretic Peptide 1370 pg/mL (0-449) Total Protein 6.4 g/dL (6.4-8.2) Albumin 2.6 g/dL (3.4-5.0) Albumin/Globulin Ratio 0.7 (1.0-1.7) Acetone Level Neg (NEG) Clostridium difficile Toxin (PCR) Negative (Negative) Blood Gas pH 7.22 (7.35-7.46) Blood Gas PCO2 22 mmHg (35-46) Blood Gas PO2 192 mmHg (71-100) Blood Gas HCO3 9 mmol/L (21-28) Arterial Bld O2 Saturation (Calc) 99 % (92-99) FiO2 50 % Test 07/30/17 19:21 07/30/17 21:10 07/30/17 21:33 07/30/17 22:10 Glucose (Fingerstick) 351 mg/dL (70-99) 271 mg/dL (70-99) Nasal Screen MRSA (PCR) Negative (Negative) Urine Collection Type Unknown Urine Color Yellow Urine Clarity Cloudy Urine pH 5.0 Urine Specific [place] 1.020 Urine Protein 100 mg/dl (NEG-TRACE) Urine Glucose (UA) Neg mg/dL (NEG) Urine Ketones (Stick) 15 mg/dL (NEG) Urine Blood Large (NEG) Urine Nitrite Neg (NEG) Urine Bilirubin Small (NEG) Urine Urobilinogen Dipstick 0.2 mg/dL (0.2 mg/dL) Urine Leukocyte Esterase Mod (NEG) Urine RBC 11-20 /HPF (0-2) Urine WBC >40 /HPF (0-4) Urine Squamous Epithelial Cells None /LPF Urine Bacteria Mod /HPF (0-FEW) Test 07/30/17 22:15 07/30/17 23:15 07/31/17 00:13 07/31/17 01:13 Lactic Acid Level 7.4 mmol/L (0.4-2.0) Glucose (Fingerstick) 283 mg/dL (70-99) 298 mg/dL (70-99) 251 mg/dL (70-99) Test 07/31/17 02:20 07/31/17 03:19 07/31/17 03:23 07/31/17 04:23 Glucose (Fingerstick) 231 mg/dL (70-99) 105 mg/dL (70-99) 150 mg/dL (70-99) 126 mg/dL (70-99) Test 07/31/17 05:27 07/31/17 05:55 07/31/17 06:30 07/31/17 07:33 Glucose (Fingerstick) 108 mg/dL (70-99) 93 mg/dL (70-99) 115 mg/dL (70-99) White Blood Count 16.4 x10^3/uL (4.0-11.0) Red Blood Count 4.92 x10^6/uL (4.30-5.70) Hemoglobin 15.3 g/dL (13.0-17.5) Hematocrit 45.3 % (39.0-53.0) Mean Corpuscular Volume 92 fL (79-100) Mean Corpuscular Hemoglobin 31 pg (25-35) Mean Corpuscular Hemoglobin Concent 34 g/dL (31-37) Red Cell Distribution Width 14.8 % (11.5-14.5) Platelet Count 167 x10^3/uL (140-400) Neutrophils (%) (Auto) 80 % (31-73) Lymphocytes (%) (Auto) 7 % (24-48) Monocytes (%) (Auto) 12 % (0-9) Eosinophils (%) (Auto) 0 % (0-3) Basophils (%) (Auto) 0 % (0-3) Neutrophils # (Auto) 13.2 x10^3uL (1.8-7.7) Lymphocytes # (Auto) 1.2 x10^3/uL (1.0-4.8) Monocytes # (Auto) 2.0 x10^3/uL (0.0-1.1) Eosinophils # (Auto) 0.0 x10^3/uL (0.0-0.7) Basophils # (Auto) 0.0 x10^3/uL (0.0-0.2) Prothrombin Time 72.2 SEC (9.4-11.4) Prothromb Time International Ratio 7.3 (0.9-1.1) Sodium Level 142 mmol/L (136-145) Potassium Level 3.4 mmol/L (3.5-5.1) Chloride Level 110 mmol/L (98-107) Carbon Dioxide Level 19 mmol/L (21-32) Anion Gap 13 (6-14) Blood Urea Nitrogen 58 mg/dL (8-26) Creatinine 1.7 mg/dL (0.7-1.3) Estimated GFR (Cockcroft-Gault) 39.4 BUN/Creatinine Ratio 34 (6-20) Glucose Level 112 mg/dL (70-99) Calcium Level 7.9 mg/dL (8.5-10.1) Magnesium Level 1.8 mg/dL (1.8-2.4) Total Bilirubin 0.2 mg/dL (0.2-1.0) Aspartate Amino Transf (AST/SGOT) 25 U/L (15-37) Alanine Aminotransferase (ALT/SGPT) 25 U/L (16-63) Alkaline Phosphatase 31 U/L (46-116) Total Protein 5.0 g/dL (6.4-8.2) Albumin 2.1 g/dL (3.4-5.0) Albumin/Globulin Ratio 0.7 (1.0-1.7) Test 07/31/17 08:35 07/31/17 11:50 07/31/17 13:50 07/31/17 14:28 Glucose (Fingerstick) 133 mg/dL (70-99) 179 mg/dL (70-99) Stool Occult Blood Positive (NEG) White Blood Count 15.8 x10^3/uL (4.0-11.0) Red Blood Count 4.86 x10^6/uL (4.30-5.70) Hemoglobin 15.0 g/dL (13.0-17.5) Hematocrit 45.2 % (39.0-53.0) Mean Corpuscular Volume 93 fL (79-100) Mean Corpuscular Hemoglobin 31 pg (25-35) Mean Corpuscular Hemoglobin Concent 33 g/dL (31-37) Red Cell Distribution Width 15.4 % (11.5-14.5) Platelet Count 169 x10^3/uL (140-400) Test 07/31/17 17:02 07/31/17 21:38 08/01/17 05:15 08/01/17 07:43 Glucose (Fingerstick) 191 mg/dL (70-99) 187 mg/dL (70-99) 172 mg/dL (70-99) White Blood Count 11.6 x10^3/uL (4.0-11.0) Red Blood Count 4.20 x10^6/uL (4.30-5.70) Hemoglobin 13.0 g/dL (13.0-17.5) Hematocrit 38.8 % (39.0-53.0) Mean Corpuscular Volume 92 fL (79-100) Mean Corpuscular Hemoglobin 31 pg (25-35) Mean Corpuscular Hemoglobin Concent 34 g/dL (31-37) Red Cell Distribution Width 15.1 % (11.5-14.5) Platelet Count 130 x10^3/uL (140-400) Neutrophils (%) (Auto) 78 % (31-73) Lymphocytes (%) (Auto) 9 % (24-48) Monocytes (%) (Auto) 13 % (0-9) Eosinophils (%) (Auto) 0 % (0-3) Basophils (%) (Auto) 0 % (0-3) Neutrophils # (Auto) 9.0 x10^3uL (1.8-7.7) Lymphocytes # (Auto) 1.1 x10^3/uL (1.0-4.8) Monocytes # (Auto) 1.5 x10^3/uL (0.0-1.1) Eosinophils # (Auto) 0.0 x10^3/uL (0.0-0.7) Basophils # (Auto) 0.0 x10^3/uL (0.0-0.2) Sodium Level 139 mmol/L (136-145) Potassium Level 3.5 mmol/L (3.5-5.1) Chloride Level 108 mmol/L (98-107) Carbon Dioxide Level 20 mmol/L (21-32) Anion Gap 11 (6-14) Blood Urea Nitrogen 57 mg/dL (8-26) Creatinine 1.5 mg/dL (0.7-1.3) Estimated GFR (Cockcroft-Gault) 45.5 BUN/Creatinine Ratio 38 (6-20) Glucose Level 209 mg/dL (70-99) Calcium Level 8.1 mg/dL (8.5-10.1) Total Bilirubin 0.3 mg/dL (0.2-1.0) Aspartate Amino Transf (AST/SGOT) 22 U/L (15-37) Alanine Aminotransferase (ALT/SGPT) 26 U/L (16-63) Alkaline Phosphatase 36 U/L (46-116) Total Protein 5.0 g/dL (6.4-8.2) Albumin 1.8 g/dL (3.4-5.0) Albumin/Globulin Ratio 0.6 (1.0-1.7) Test 08/01/17 09:05 Prothrombin Time > 120.0 SEC (9.4-11.4) Prothromb Time International Ratio > 10.0 (0.9-1.1) Physical Exam: Chest with decreased breath sounds. CV. RRR with a II/ murmur. Abdomen. Soft ASSESSMENT: As above. SAVANAH MAGUIRE MD Aug 01, 2017 11:21
[2017-08-01] MEDS: VANCOMYCIN PER PHARMACY MC PRN (13:40)
[2017-08-01] MEDS: FINASTERIDE 5 MG TABLET PO SCH (20:42)
[2017-08-01] MEDS: DOXAZOSIN MESYLATE 4 MG TABLET PO SCH (20:43)
[2017-08-01] MEDS: MEROPENEM 1 GM in IV NORMAL SALINE 100ML 100 ML IV SCH (20:44)
[2017-08-02 00:07] VITALS: BP 144/71
[2017-08-02 03:15] VITALS: BP 142/76
[2017-08-02] MEDS: LEVOTHYROXINE 25 MCG TABLET. PO SCH (05:25)
[2017-08-02] MEDS: LEVOTHYROXINE 137 MCG TABLET PO SCH (05:25)
[2017-08-02 06:14] VITALS: BP 156/74
[2017-08-02 06:45] LABS: BASO % 0 % (0-3); EOS % 0 % (0-3); HEMATOCRIT 40.2 % (39.0-53.0); LYMPH % 9 % (24-48); MEAN CORPUSCULAR HEMOGLOBIN 31 pg (25-35); MEAN CORPUSCULAR HGB CONC 32 g/dL (31-37); MEAN CORPUSCULAR VOLUME 95 fL (79-100); MONO # 1.4 x10^3/uL (0.0-1.1); MONO % 12 % (0-9); NEUT # 8.9 x10^3uL (1.8-7.7); NEUT % 79 % (31-73); PLATELET COUNT 121 x10^3/uL (140-400); RED BLOOD COUNT 4.23 x10^6/uL (4.30-5.70); RED CELL DISTRIBUTION WIDTH 15.5 % (11.5-14.5); WHITE BLOOD COUNT 11.3 x10^3/uL (4.0-11.0)
[2017-08-02 06:51] LABS: CALCIUM 8.3 mg/dL (8.5-10.1); GFR 72.6; POTASSIUM 3.8 mmol/L (3.5-5.1)
[2017-08-02 07:29] LABS: % BANDS 16 % (0-9); % BASOS 0 % (0-3); % EOS 0 % (0-5); % LYMPHS 11 % (24-48); % MONOS 11 % (0-10); % SEGS 62 % (35-66); PLT ESTIMATE ADEQUATE (ADEQUATE); POLYCHROMASIA PRESENT; TOXIC VACUOLATION SLIGHT
--- NOTE | 2017-08-02 07:35 | PN ---
DATE: 08/01/2017 SUBJECTIVE: The patient is resting slightly propped up in bed, no apparent distress. He is sleepy, but arousable. Denied any complaint. Nursing staff said his diarrhea has subsided after rectal tube was put in. He is afebrile and his blood pressure is now high. OBJECTIVE: GENERAL: On examining him, he looked well and was clearly in no apparent distress. No pallor, jaundice, cyanosis, or thyromegaly. No jugular venous distension. No lower limb edema. VITAL SIGNS: His heart rate was 101, blood pressure 167/92, temperature was 97, respiratory rate was 20, oxygen saturation was 94% on 3 liters of oxygen by nasal cannula. HEAD, EYES, EARS, NOSE AND THROAT: Showed normocephalic, atraumatic. NECK: Supple. HEART: Showed normal first and second heart sound, no gallop, rub or murmur. CHEST: Clear to auscultation. No crepitation or rhonchi. ABDOMEN: Distended, soft, nontender. NEUROLOGIC: He was sleepy with arousable. All his cranial nerves intact. He moves all extremities to much good extent than lower extremities. He is mostly bedbound and chair bound. His intake was 2480, output was 1425. LABORATORY DATA: Her lab work this morning showed a white cell count of 11,600, hemoglobin 13, hematocrit 39, MCV 92, and platelet count of 130,000. His chemistry showed a serum sodium 139, potassium 3.5, chloride 108, bicarbonate 20, anion gap of 11, BUN 57, creatinine was 1.5, estimated GFR of 45 mL per minute, his glucose at 209, calcium was 8.1. Total bilirubin, AST, ALT, alkaline phosphatase normal. Total protein was 5, albumin was 1.8. His blood cultures are negative. His urine culture showed growth of more than 100,000 colony forming units of per mL of gram-negative rods. The identification and sensitivity still pending at the time of this dictation. ASSESSMENT: 1. Severe sepsis due to urinary tract infection. 2. Acute on chronic kidney failure, improving. 3. Lactic acidosis, resolved. Urinary tract infection with growth of more than 100,000 colony forming units per mL of gram-negative rods, currently on IV levofloxacin. I did discontinue his vancomycin. 4. Coumadin-induced coagulopathy. We stopped the Lovenox and Coumadin. He was treated with vitamin K 5 mg subcutaneous. PLAN: To continue with IV levofloxacin. Await the identification and sensitivity. Continue to monitor his lab work, particularly PT/INR. If he starts bleeding, we will probably start him on fresh frozen plasma. REID BYERS MD DR: MAHAD/paulie JOB#: [id number] / [id number]
[2017-08-02] MEDS: MEROPENEM 1 GM in IV NORMAL SALINE 100ML 100 ML IV SCH (09:17)
[2017-08-02] MEDS: medroxyPROGESTERone 5 MG TABLET PO SCH (09:18)
[2017-08-02] MEDS: LACTOBACILLUS RHAMNOSUS GG 1 CAPSULE. PO SCH (09:18)
[2017-08-02] MEDS: POTASSIUM CHLORIDE 20 MEQ TABLET.ER. PO SCH (09:18)
[2017-08-02] MEDS: MULTIVITAMIN with MINERAL TABLET. PO SCH (09:20)
[2017-08-02] MEDS: FAMOTIDINE 20 MG TABLET PO SCH (09:20)
[2017-08-02] MEDS: amLODIPine BESYLATE 10 MG TABLET PO SCH (09:20)
[2017-08-02] MEDS: DIVALPROEX SODIUM 250 MG TABLET.DR. PO SCH ×2 (09:20→09:21)
[2017-08-02] MEDS: INSULIN DETEMIR 300 UNITS/3 ML INSULN.PEN. SQ SCH (09:22)
[2017-08-02] MEDS: INSULIN ASPART 300 UNITS/3 ML INSULN.PEN SQ SCH ×2 (09:23→11:30)
--- NOTE | 2017-08-02 10:50 | PDOC ---
SUBJECTIVE: Patient seen and examined The patient is comfortable this morning. OBJECTIVE: Problems: Problems Medical Problems: (1) Acute renal failure Status: Acute (2) Acute respiratory failure Status: Acute (3) Dehydration Status: Acute (4) DKA (diabetic ketoacidoses) Status: Acute (5) Lactic acidosis Status: Acute (6) Leukocytosis Status: Acute Vital Signs: Vital Signs Date Time Temp Pulse Resp B/P (MAP) Pulse Ox O2 Delivery O2 Flow Rate FiO2 08/02/17 09:20 107 155/72 08/02/17 08:00 Nasal Cannula 3.0 08/02/17 06:14 22 95 08/01/17 19:21 97.6 I & O Intake and Output 08/02/17 07:00 Intake Total 2980 ml Output Total 2150 ml Balance 830 ml Intake Oral 2980 ml Output Urine Total 2150 ml Labs: Laboratory Tests Test 07/31/17 11:50 07/31/17 13:50 07/31/17 14:28 07/31/17 17:02 Glucose (Fingerstick) 179 mg/dL (70-99) 191 mg/dL (70-99) Stool Occult Blood Positive (NEG) White Blood Count 15.8 x10^3/uL (4.0-11.0) Red Blood Count 4.86 x10^6/uL (4.30-5.70) Hemoglobin 15.0 g/dL (13.0-17.5) Hematocrit 45.2 % (39.0-53.0) Mean Corpuscular Volume 93 fL (79-100) Mean Corpuscular Hemoglobin 31 pg (25-35) Mean Corpuscular Hemoglobin Concent 33 g/dL (31-37) Red Cell Distribution Width 15.4 % (11.5-14.5) Platelet Count 169 x10^3/uL (140-400) Test 07/31/17 21:38 08/01/17 05:15 08/01/17 07:43 08/01/17 09:05 Glucose (Fingerstick) 187 mg/dL (70-99) 172 mg/dL (70-99) White Blood Count 11.6 x10^3/uL (4.0-11.0) Red Blood Count 4.20 x10^6/uL (4.30-5.70) Hemoglobin 13.0 g/dL (13.0-17.5) Hematocrit 38.8 % (39.0-53.0) Mean Corpuscular Volume 92 fL (79-100) Mean Corpuscular Hemoglobin 31 pg (25-35) Mean Corpuscular Hemoglobin Concent 34 g/dL (31-37) Red Cell Distribution Width 15.1 % (11.5-14.5) Platelet Count 130 x10^3/uL (140-400) Neutrophils (%) (Auto) 78 % (31-73) Lymphocytes (%) (Auto) 9 % (24-48) Monocytes (%) (Auto) 13 % (0-9) Eosinophils (%) (Auto) 0 % (0-3) Basophils (%) (Auto) 0 % (0-3) Neutrophils # (Auto) 9.0 x10^3uL (1.8-7.7) Lymphocytes # (Auto) 1.1 x10^3/uL (1.0-4.8) Monocytes # (Auto) 1.5 x10^3/uL (0.0-1.1) Eosinophils # (Auto) 0.0 x10^3/uL (0.0-0.7) Basophils # (Auto) 0.0 x10^3/uL (0.0-0.2) Sodium Level 139 mmol/L (136-145) Potassium Level 3.5 mmol/L (3.5-5.1) Chloride Level 108 mmol/L (98-107) Carbon Dioxide Level 20 mmol/L (21-32) Anion Gap 11 (6-14) Blood Urea Nitrogen 57 mg/dL (8-26) Creatinine 1.5 mg/dL (0.7-1.3) Estimated GFR (Cockcroft-Gault) 45.5 BUN/Creatinine Ratio 38 (6-20) Glucose Level 209 mg/dL (70-99) Calcium Level 8.1 mg/dL (8.5-10.1) Total Bilirubin 0.3 mg/dL (0.2-1.0) Aspartate Amino Transf (AST/SGOT) 22 U/L (15-37) Alanine Aminotransferase (ALT/SGPT) 26 U/L (16-63) Alkaline Phosphatase 36 U/L (46-116) Total Protein 5.0 g/dL (6.4-8.2) Albumin 1.8 g/dL (3.4-5.0) Albumin/Globulin Ratio 0.6 (1.0-1.7) Prothrombin Time > 120.0 SEC (9.4-11.4) Prothromb Time International Ratio > 10.0 (0.9-1.1) Test 08/01/17 11:35 08/01/17 16:55 08/01/17 20:32 08/02/17 06:14 Glucose (Fingerstick) 159 mg/dL (70-99) 109 mg/dL (70-99) 137 mg/dL (70-99) White Blood Count 11.3 x10^3/uL (4.0-11.0) Red Blood Count 4.23 x10^6/uL (4.30-5.70) Hemoglobin 13.0 g/dL (13.0-17.5) Hematocrit 40.2 % (39.0-53.0) Mean Corpuscular Volume 95 fL (79-100) Mean Corpuscular Hemoglobin 31 pg (25-35) Mean Corpuscular Hemoglobin Concent 32 g/dL (31-37) Red Cell Distribution Width 15.5 % (11.5-14.5) Platelet Count 121 x10^3/uL (140-400) Neutrophils (%) (Auto) 79 % (31-73) Lymphocytes (%) (Auto) 9 % (24-48) Monocytes (%) (Auto) 12 % (0-9) Eosinophils (%) (Auto) 0 % (0-3) Basophils (%) (Auto) 0 % (0-3) Neutrophils # (Auto) 8.9 x10^3uL (1.8-7.7) Lymphocytes # (Auto) 1.0 x10^3/uL (1.0-4.8) Monocytes # (Auto) 1.4 x10^3/uL (0.0-1.1) Eosinophils # (Auto) 0.0 x10^3/uL (0.0-0.7) Basophils # (Auto) 0.0 x10^3/uL (0.0-0.2) Segmented Neutrophils % 62 % (35-66) Band Neutrophils % 16 % (0-9) Lymphocytes % 11 % (24-48) Monocytes % 11 % (0-10) Eosinophils % 0 % (0-5) Basophils % 0 % (0-3) Toxic Vacuolation Slight Platelet Estimate Adequate (ADEQUATE) Polychromasia Present Prothrombin Time 17.9 SEC (9.4-11.4) Prothromb Time International Ratio 1.8 (0.9-1.1) Sodium Level 141 mmol/L (136-145) Potassium Level 3.8 mmol/L (3.5-5.1) Chloride Level 110 mmol/L (98-107) Carbon Dioxide Level 23 mmol/L (21-32) Anion Gap 8 (6-14) Blood Urea Nitrogen 38 mg/dL (8-26) Creatinine 1.0 mg/dL (0.7-1.3) Estimated GFR (Cockcroft-Gault) 72.6 Glucose Level 166 mg/dL (70-99) Calcium Level 8.3 mg/dL (8.5-10.1) Test 08/02/17 08:00 08/02/17 08:57 Glucose (Fingerstick) 158 mg/dL (70-99) mg/dL (70-99) Physical Exam: Chest. Mildly decreased breath sounds. CV. Irregularly irregular rhythm. 1/6 systolic murmur. Abdomen. No tenderness. ASSESSMENT: 1. CHF - no overt heart failure, ECHO with intact LV systolic function and mild MR. Continue present treatment. 2. urosepsis with lactic acidosis - fluids and abx per PCP 3. hyperglycemia - mgmt per PCP 4. hypertension - controlled 5. acute renal failure - Cr improving. 6. atrial fibrillation - currently sinus. 7. warfarin on hold due to severely elevated INR yesterday. Today's INR 1.8 with a PT of 17.9. SAVANAH MAGUIRE MD Aug 02, 2017 10:50
[2017-08-02 12:12] VITALS: BP 119/64
--- NOTE | 2017-08-02 15:20 | DS ---
DATE OF DISCHARGE: 07/30/2017 HISTORY OF PRESENT ILLNESS: The patient is a 77-year-old male patient, presents at [facility] in [place], who was admitted on 07/30/2017 with a complaint of shortness of breath over the last 2-3 months, worsening over the last 2-3 weeks. He was started on oxygen for about 3 weeks ago and felt that his symptoms have been mildly improved. During that time, he denied any chest pain, fever, or chills. Basically was extensively investigated in the Emergency Room, was admitted initially with diabetic ketoacidosis, although subsequently it transpired that he has just poorly controlled diabetes with no evidence of ketosis and was found to be extremely dehydrated with acute renal failure, lactic acidosis and acute respiratory acidosis, lactic severe metabolic acidosis and he was started on IV fluid, insulin drip and IV antibiotic in the form of vancomycin and levofloxacin. He is unfortunately allergic to PENICILLIN and his blood gases initially showed a pH of 7.22, pCo2 22, BUN 50, creatinine 2.4. The patient gradually improved. His blood sugar has steadily improved. His white cell count initially was 23,900 and his lactic acid was 12.1 and his BUN was 50, creatinine 2.4 and also slight elevation of his troponin for which he was seen by the biometrics consultant, but did not recommend any ischemic workup. We continued him on IV meropenem and levofloxacin. His blood cultures were negative. We discontinued his vancomycin and eventually his urine culture has grown 200,000 colony forming units per mL of gram-negative rods identified as Escherichia coli. Unfortunately, the patient is allergic to PENICILLIN. However, his kidney function has improved that night apparently and was the appropriate choice to finish the treatment. PHYSICAL EXAMINATION: GENERAL: When I saw him today, he looked well and was clearly in no apparent respiratory distress. There was no pallor, jaundice or cyanosis or thyromegaly. No jugular venous distension. No lower limb edema. VITAL SIGNS: His heart rate was 75, blood pressure 119/64, temperature was 98, respiratory rate 22 and oxygen saturation was 95% on 2 liters of oxygen. HEAD, EYES, EARS, NOSE AND THROAT: Normocephalic, atraumatic. NECK: Supple. HEART: Showed normal first and second sounds. No gallop, rub or murmur. CHEST: Clear to auscultation. No crepitation or rhonchi. ABDOMEN: Distended, soft, nontender. NEUROLOGIC: He is demented, but without any obvious lateralizing sign. All his cranial nerves are intact. He moves all extremities to much good extent than his lower extremities. He has a Ha lift. His intake over the last 24 hours was 3000, output was 2150. LABORATORY DATA: As of this morning, his serum sodium was 141, potassium 3.8, chloride 110, bicarbonate 23, anion gap of 8, BUN 38, creatinine 1, estimated GFR was 72 mL per minute. His blood sugar was 166 mg/dL and calcium was 8.3. His white cell count as of this morning was 11,300, hemoglobin 13, hematocrit 40, MCV 95 and platelet count of 121,000. His prothrombin time is down to 17.9, INR 1.8. He has Coumadin-induced coagulopathy. In fact, his big prothrombin time was more than 120 and the INR was more than 10 for which he received 5 mg of subcutaneous vitamin K. His stool for C. diff was negative and his nasal screen for MRSA by PCR was negative. DISCHARGE MEDICATIONS: The patient will be discharged back to [facility] to continue on following medication: Macrobid 100 mg twice a day for 6 more days. Meanwhile, should continue on his acetaminophen 500 mg every 4 hours, amlodipine besylate 10 mg once a day, Arginaid powder 1 pack twice a day, Dulcolax 10 mg suppositories daily p.r.n. for constipation, cranberry 400 mg capsules twice a day, Divalproex sodium 375 mg daily, Divalproex 500 mg twice a day, doxazosin mesylate 8 mg at bedtime, famotidine 20 mg twice a day, finasteride 5 mg at bedtime, fluvoxamine maleate 100 mg daily for OCD and depression. He is on NovoLog FlexPen as insulin sliding scale before meals and detemir insulin 20 units twice a day, levothyroxine sodium 137 mcg once a day, levothyroxine sodium 25 mcg once a day, liraglutide for Victoza 1.8 mg subcutaneously daily, magnesium hydroxide for milk of magnesia 30 mL p.o. daily p.r.n. for constipation, medroxyprogesterone or Provera 5 mg daily for being sexually inappropriate, multivitamin 1 tablet once a day, Fleet Enema as needed for constipation, omeprazole 20 mg daily, ondansetron 4 mg every 8 hours as needed, potassium chloride 40 mEq once a day, trazodone 100 mg at bedtime and warfarin cut down the dose to 4 mg daily. FINAL DISCHARGE DIAGNOSES: 1. Severe sepsis. 2. Urinary tract infection with growth of Escherichia coli. 3. Poorly controlled type 2 diabetes. 4. Acute kidney injury. 5. Coumadin-induced coagulopathy. 6. Severe protein-calorie malnutrition. 7. Benign prostatic hypertrophy with bladder outlet obstruction requiring indwelling Claros catheter. REID BYERS MD DR: MAHAD/paulie JOB#: [id number] / [id number]
[2017-08-02] MEDS ORDERED: MEROPENEM 1 GM in IV NORMAL SALINE 100ML 100 ML IV SCH (17:00)
--- NOTE | 2017-08-03 09:18 | PN ---
DATE: 07/31/2017 SUBJECTIVE: The patient is resting, slightly propped up in bed, in no apparent respiratory distress. He is awake, alert, but confused. OBJECTIVE: GENERAL: On examining him today, he looked well and was clearly in no apparent distress. No pallor, jaundice, cyanosis, or thyromegaly. No jugular venous distension. No limb edema. VITAL SIGNS: His heart rate was 89, blood pressure was 108/52, temperature was 97.4, respiratory rate 22 and oxygen saturation was 98% on 2 liters of oxygen by nasal cannula. HEAD, EYES, EARS, NOSE AND THROAT: Showed normocephalic, atraumatic. NECK: Supple. HEART: Showed normal first and second heart sounds with no gallop, rub or murmur. CHEST: Clear to auscultation. No crepitation or rhonchi. ABDOMEN: Distended, soft, nontender. NEUROLOGIC: He is awake, alert, but very confused. All his cranial nerves are intact. He moves upper extremities to much good extent than his lower extremities, he is mostly bedbound in fact he is a Ha lift. He has an indwelling Claros catheter. His intake over the last 24 hours was 5500, output was 550. LABORATORY DATA: This morning showed a serum sodium 142, potassium 3.4, chloride 110, bicarbonate 19, anion gap of 13, BUN 58, creatinine 1.7, estimated GFR was 39 mL per minute, his glucose 112, calcium was 7.9, magnesium was 1.8. Total bilirubin, AST, ALT, alkaline phosphatase were normal. Total protein was 5.5 mg/dL and albumin was 2.1 g/dL. His white cell count is down to 15,800, hemoglobin 15, hematocrit 45, MCV 93, and platelet count 269,000. His blood and urine culture are still pending at the time of this dictation. ASSESSMENT: In summary, this is a 77-year-old male patient with dementia who is bedbound with chronic indwelling Claros catheter secondary to benign prostatic hypertrophy with bladder outlet obstruction, came in with increasing shortness of breath. He was found to be septic, acidotic, marked leukocytosis and hyperglycemia with acute kidney injury. The source of sepsis is most likely in the chronic indwelling Claros catheter. His blood sugar was poorly controlled, but he was not really in diabetic ketoacidosis. His blood sugar has much improved this morning, has also severe protein-calorie malnutrition with serum albumin of only 2.1 and apparently is known to have chronic kidney disease and atrial fibrillation together with congestive heart failure. He was seen in consultation by the plant pathologist. An echocardiogram was ordered. We will wait for the results of the culture and sensitivity and if they are all negative, we will discontinue the vancomycin and continue with Levaquin. REID BYERS MD DR: MAHAD/paulie JOB#: [id number] / [id number]
== END 2017-08-02 15:37 | disposition home or self-care (01) | DRG 871 ==
LOC: ER 17:43 → ICU 19:50 → ER 20:47
PROVIDERS: ADMIT Internal Medicine; ATTEND Internal Medicine
PROC: 5A09357 Assistance with Respiratory Ventilation, Less than 24 Consecutive Hours, Continuous Positive Airway Pressure (ICD-10-PCS; principal; 2017-07-30)
DX: A41.9 Sepsis, unspecified organism (principal); J96.00 Acute respiratory failure, unspecified whether with hypoxia or hypercapnia; E43 Unspecified severe protein-calorie malnutrition; N17.9 Acute kidney failure, unspecified; I50.9 Heart failure, unspecified; I13.0 Hypertensive heart and chronic kidney disease with heart failure and stage 1 through stage 4 chronic kidney disease, or unspecified chronic kidney disease; I48.0 Paroxysmal atrial fibrillation; E86.0 Dehydration; E11.65 Type 2 diabetes mellitus with hyperglycemia; N39.0 Urinary tract infection, site not specified; N13.8 Other obstructive and reflux uropathy; R79.1 Abnormal coagulation profile; N18.9 Chronic kidney disease, unspecified; T45.515A Adverse effect of anticoagulants, initial encounter; B96.20 Unspecified Escherichia coli [E. coli] as the cause of diseases classified elsewhere; N40.1 Benign prostatic hyperplasia with lower urinary tract symptoms; F03.90 Unspecified dementia, unspecified severity, without behavioral disturbance, psychotic disturbance, mood disturbance, and anxiety; E03.9 Hypothyroidism, unspecified; E78.5 Hyperlipidemia, unspecified; R65.20 Severe sepsis without septic shock; F32.9 Major depressive disorder, single episode, unspecified; I25.10 Atherosclerotic heart disease of native coronary artery without angina pectoris; K21.9 Gastro-esophageal reflux disease without esophagitis; Z86.718 Personal history of other venous thrombosis and embolism; Z87.440 Personal history of urinary (tract) infections; Z88.0 Allergy status to penicillin; Z79.899 Other long term (current) drug therapy; Z74.01 Bed confinement status; Z68.29 Body mass index [BMI] 29.0-29.9, adult
CPT/HCPCS: 36415; 51702; 71045; 80048; 80053; 81001; 82010; 82274; 82803; 82947; 83605; 83735; 83880; 83930; 84100; 84484; 85007; 85025; 85027; 85610; 86850; 86900; 86901; 87040; 87086; 87186; 87324; 87641; 93005; 93306; 94640; 96361; 96374; J1650; J1815; J1956; J2185; J3370; J3430; J7040; J7620; 99291-25; J7030

== ENCOUNTER 2017-10-24 23:31 | Emergency (ER) | payer MEDICARE, OTHER ==
[~2017-10-24] VITALS: Ht 193 cm; Wt 120.2 kg
[~2017-10-24 23:31] MED LIST changes: +ACET500T68 PO; +ARGI1POW19 PO; +BISA10SU55 RC; +CRAN400C PO; +INSU100I27 SQ; +LIRA0.6P2 SQ; +MAGN2400 PO; +MEDR5TAB PO; +NA P133E2 RC; +ONDA4TAB10 PO; +WARF6TAB PO
[2017-10-24 23:35] VITALS: BP 129/54
--- NOTE | 2017-10-24 23:44 | ED.ADGEN ---
Past History Past Medical History: Anxiety, CHF, Diabetes, Kidney Infection, UTI Past Surgical History: Other Smoking: Non-smoker Alcohol Use: None Drug Use: None Adult General Chief Complaint Chief Complaint ".. My urine not right..." HPI HPI Patient is a 77 year old male who presents with hx of hematuria, urinary retention after change of Thomas today at [facility]. Pt. Thomas dose appear to be misplaced. Lower blader area appears to be distended. Thomas changed with adequate urine flow. Pt. 's Thomas replaced on arrival by nursing. Pt. does take Coumadin. Pt currently on catheter change every two weeks. Pt. does have what appears to be yeast accumulation and penile erosion. Replaced Thomas flushed clear and appears to drain the urinary retention. Pt. report marked reduced discomfort. Review of Systems Review of Systems Constitutional: Denies fever or chills [] Eyes: Denies change in visual acuity, redness, or eye pain [] HENT: Denies nasal congestion or sore throat [] Respiratory: Denies cough or shortness of breath [] Cardiovascular: No additional information not addressed in HPI [] GI: Denies abdominal pain, nausea, vomiting, bloody stools or diarrhea [] : Denies dysuria Hz. of hematuria and urinary retention. Musculoskeletal: Denies back pain or joint pain [] Integument: Denies rash or skin lesions [] Neurologic: Denies headache, focal weakness or sensory changes [] Endocrine: Denies polyuria or polydipsia [] All other systems were reviewed and found to be within normal limits, except as documented in this note. Family History Family History Non-contributory Current Medications Current Medications See Nursing for home meds Allergies Allergies Allergies Coded Allergies Type Severity Reaction Last Updated Verified Penicillins Allergy Intermediate hives 10/16/13 Yes Physical Exam Physical Exam Constitutional: mild distress, non-toxic appearance. [] HENT: Normocephalic, atraumatic, bilateral external ears normal, oropharynx moist, no oral exudates, nose normal. [] Eyes: PERRLA, EOMI, conjunctiva normal, no discharge. [] Neck: Normal range of motion, no tenderness, supple, no stridor. [] Cardiovascular:Heart rate regular rhythm, no murmur []PMI to Lt. Lungs & Thorax: Bilateral breath sounds equal apex with scattered rhonchi auscultation [] Abdomen: Bowel sounds normal, soft, no tenderness, no masses, no pulsatile masses. [] Skin: Warm, dry, no erythema, no rash. [] Back: No tenderness, no CVA tenderness. [] Extremities: No tenderness, no cyanosis, no clubbing, Limited ROM , edema. [] Splinted. Neurologic: Alert and oriented X 2, reported motor and sensory function at his baseline.[] Psychologic: Affect flat, mood decreased. Current Patient Data Vital Signs Vital Signs Date Time Temp Pulse Resp B/P (MAP) Pulse Ox O2 Delivery O2 Flow Rate FiO2 10/24/17 23:35 97.9 92 20 95 Room Air EKG EKG [] Radiology/Procedures Radiology/Procedures [] Course & Med Decision Making Course & Med Decision Making Pertinent Labs and Imaging studies reviewed. (See chart for details). Continue follow up current urine cultures from senior care. Clean penis twice a day and apply small amount polysporin and nystatin to penis. Document urine out flow. Continue urine Thomas scheduled changes. Return if any concerns. It appears urine retention disfunction or malplacement of thomas. [] Final Impression Final Impression 1. Urine Obstruction- Thomas[] Dragon Disclaimer Dragon Disclaimer This electronic medical record was generated, in whole or in part, using a voice recognition dictation system. KISHA GILES MD October 24, 2017 23:44
[2017-10-24] MEDS ORDERED: NYST15CR TP (23:47)
[2017-10-24] MEDS ORDERED: BACI28.34 TP (23:47)
== END 2017-10-24 23:54 | disposition home or self-care (01) ==
LOC: ER 23:31
DX: Z46.6 Encounter for fitting and adjustment of urinary device (principal); N13.9 Obstructive and reflux uropathy, unspecified; F41.9 Anxiety disorder, unspecified; E11.9 Type 2 diabetes mellitus without complications; I50.9 Heart failure, unspecified; Z87.440 Personal history of urinary (tract) infections; Z79.01 Long term (current) use of anticoagulants; Z88.0 Allergy status to penicillin
CPT/HCPCS: 51702; 99284-25

== ENCOUNTER 2018-07-16 22:13 | Inpatient (IN) | payer MEDICARE, OTHER ==
[~2018-07-16] VITALS: Ht 193 cm; Wt 87.3 kg
[~2018-07-16 22:13] MED LIST changes: -AMLO10TA2 PO; +AMLO10TA8 PO; +BACI28.34 TP; +DIVA-51 PO; +DIVA-53 PO; -DIVA250T6 PO; -DIVA500T9 PO; +HYDR-2145 PO; -HYDR25TA9 PO; +NYST15CR TP; +OMEP20CA10 PO; -OMEP20CA9 PO; +TRAZ-86 PO; -TRAZ-90 PO
--- NOTE | 2018-07-16 22:24 | ED.ADGEN ---
Past History Past Medical History: A-Fib, CHF, Dementia, Depression, Diabetes, DVT, GERD, Hypothyroid, Renal Failure, UTI Past Surgical History: No Surgical History Smoking: Non-smoker Alcohol Use: None Drug Use: None Adult General Chief Complaint Chief Complaint "..I more short of breath... coughing...fever .. chills... HPI HPI Patient is a 78 year old male who presents with above hx and dyspnea. Patient is a transfer from [facility]. Patient recent had a swallow study was found to have aspiration with swallowing. Patient today has exhibited increased dyspnea and hypoxia. Patient has history of multiple medical issues including cardiac seizure hypothyroid deconditioning, constipation, A. fib , UTIs. Patient normally follows with Dr. Banegas. Review of Systems Review of Systems Constitutional: Complains of fever or chills [] Eyes: Denies change in visual acuity, redness, or eye pain [] HENT: Denies nasal congestion or sore throat [] Respiratory: Complains of cough and shortness of breath [] Cardiovascular: No additional information not addressed in HPI [] GI: Denies abdominal pain, nausea, vomiting, bloody stools or diarrhea [] : Denies dysuria or hematuria [] Musculoskeletal: Denies back pain or joint pain [] Integument: Denies rash or skin lesions [] Neurologic: Denies headache, focal weakness or sensory changes [] Endocrine: Denies polyuria or polydipsia [] All other systems were reviewed and found to be within normal limits, except as documented in this note. Family History Family History Not currently available Current Medications Current Medications Current Medications Medications (Trade) Dose Ordered Sig/Jorden Start Time Stop Time Status Last Admin Dose Admin Ceftriaxone Sodium 1 gm/ Sodium Chloride 50 ml @ 100 mls/hr 1X ONCE 07/16/18 23:00 07/16/18 23:29 DC 07/16/18 23:17 100 MLS/HR Lactated Ringer's 1,000 ml @ 100 mls/hr Q10H 07/16/18 23:00 07/17/18 08:59 07/16/18 23:17 100 MLS/HR Vancomycin HCl 1 gm/Sodium Chloride 250 ml @ 250 mls/hr 1X ONCE 07/16/18 22:30 07/16/18 23:29 UNV Allergies Allergies Allergies Coded Allergies Type Severity Reaction Last Updated Verified Penicillins Allergy Intermediate hives 10/16/13 Yes Physical Exam Physical Exam Constitutional: Moderately acute distress, non-toxic appearance. [] HENT: Normocephalic, atraumatic, bilateral external ears normal, oropharynx moist, no oral exudates, nose normal. [] Eyes: PERRLA, EOMI, conjunctiva normal, no discharge. [] Neck: Normal range of motion, no tenderness, supple, no stridor. [] Cardiovascular: Tachycardia Heart rate regular rhythm,PMI to the left Lungs & Thorax: Bilateral breath sounds rhonchi and wheezing throughout on auscultation [coughing. Abdomen: Bowel sounds decreased mildly distended, soft, no tenderness, no masses , no pulsatile masses. [] Skin: Warm, dry, no erythema, no rash. Poor turgor. Back: No tenderness, no CVA tenderness. [] Extremities: No tenderness, no cyanosis, no clubbing, ROM intact, no edema. [] Neurologic: Alert , moves extremities on request but has left sided weakness, decreased plantar sensory Psychologic: Affect anxious,, mood depressed Current Patient Data Vital Signs Vital Signs Date Time Temp Pulse Resp B/P (MAP) Pulse Ox O2 Delivery O2 Flow Rate FiO2 07/16/18 22:55 99 26 131/63 (85) 91 Nasal Cannula 2.0 07/16/18 22:32 99.9 Lab Results Laboratory Tests Test 07/16/18 22:20 07/16/18 22:45 White Blood Count 11.0 x10^3/uL (4.0-11.0) Red Blood Count 4.05 x10^6/uL (4.30-5.70) L Hemoglobin 12.5 g/dL (13.0-17.5) L Hematocrit 38.4 % (39.0-53.0) L Mean Corpuscular Volume 95 fL (79-100) Mean Corpuscular Hemoglobin 31 pg (25-35) Mean Corpuscular Hemoglobin Concent 33 g/dL (31-37) Red Cell Distribution Width 15.2 % (11.5-14.5) H Platelet Count 180 x10^3/uL (140-400) Neutrophils (%) (Auto) 68 % (31-73) Lymphocytes (%) (Auto) 21 % (24-48) L Monocytes (%) (Auto) 11 % (0-9) H Eosinophils (%) (Auto) 0 % (0-3) Basophils (%) (Auto) 1 % (0-3) Neutrophils # (Auto) 7.5 x10^3uL (1.8-7.7) Lymphocytes # (Auto) 2.3 x10^3/uL (1.0-4.8) Monocytes # (Auto) 1.2 x10^3/uL (0.0-1.1) H Eosinophils # (Auto) 0.0 x10^3/uL (0.0-0.7) Basophils # (Auto) 0.1 x10^3/uL (0.0-0.2) Prothrombin Time 30.8 SEC (9.4-11.4) H Prothrombin Time INR 3.3 (0.9-1.1) H PTT 38 SEC (23-33) H D-Dimer (Jordyn) 1.40 mg/L (0.00-0.50) H Urine Collection Type U cath Urine Color Yellow Urine Clarity Cloudy Urine pH 5.5 Urine Specific Arthur 1.020 Urine Protein 100 mg/dl (NEG-TRACE) Urine Glucose (UA) Neg mg/dL (NEG) Urine Ketones (Stick) Neg mg/dL (NEG) Urine Blood Small (NEG) Urine Nitrite Pos (NEG) Urine Bilirubin Neg (NEG) Urine Urobilinogen Dipstick 1 mg/dL (0.2 mg/dL) Urine Leukocyte Esterase Small (NEG) Urine RBC Occ /HPF (0-2) Urine WBC >40 /HPF (0-4) Urine Squamous Epithelial Cells Occ /LPF Urine Bacteria Many /HPF (0-FEW) Urine Mucus Slight /LPF Sodium Level 149 mmol/L (136-145) H Potassium Level 4.4 mmol/L (3.5-5.1) Chloride Level 114 mmol/L (98-107) H Carbon Dioxide Level 29 mmol/L (21-32) Anion Gap 6 (6-14) Blood Urea Nitrogen 24 mg/dL (8-26) Creatinine 1.1 mg/dL (0.7-1.3) Estimated GFR (Cockcroft-Gault) 64.9 Glucose Level 158 mg/dL (70-99) H Lactic Acid Level 1.1 mmol/L (0.4-2.0) Calcium Level 8.9 mg/dL (8.5-10.1) Magnesium Level 2.1 mg/dL (1.8-2.4) Total Bilirubin 0.3 mg/dL (0.2-1.0) Direct Bilirubin 0.1 mg/dL (0.0-0.2) Aspartate Amino Transferase (AST) 16 U/L (15-37) Alanine Aminotransferase (ALT) 23 U/L (16-63) Alkaline Phosphatase 65 U/L (46-116) Creatine Kinase 42 U/L (39-308) Creatine Kinase MB (Mass) 1.2 ng/mL (0.0-3.6) Creatine Kinase MB Relative Index 2.9 % (0-4) Troponin I Quantitative < 0.017 ng/mL (0-0.055) KL-Ett-A-Type Natriuretic Peptide 787 pg/mL (0-449) H Total Protein 7.2 g/dL (6.4-8.2) Albumin 2.4 g/dL (3.4-5.0) L Lipase 55 U/L (73-393) L Urine Opiates Screen Neg (NEG) Urine Methadone Screen Neg (NEG) Urine Barbiturates Neg (NEG) Urine Phencyclidine Screen Neg (NEG) Urine Amphetamine/Methamphetamine Neg (NEG) Urine Benzodiazepines Screen Neg (NEG) Urine Cocaine Screen Neg (NEG) Urine Cannabinoids Screen Neg (NEG) Urine Ethyl Alcohol Neg (NEG) Influenza Type A (Rapid) Negative (NEGATIVE) Influenza Type B (Rapid) Negative (NEGATIVE) EKG EKG My interpretation of EKG shows a sinus tachycardia 102 bpm. There is atypical P waves. Contour changes anterior lateral. There is a large amount of baseline artifact.[] Radiology/Procedures Radiology/Procedures I interpretation of chest x-ray shows atelectasis and patchy infiltrate consistent with viral or atypical pneumonia. Cardiomegaly. Vertebral plasty. Degenerative joint changes.[] Course & Med Decision Making Course & Med Decision Making Pertinent Labs and Imaging studies reviewed. (See chart for details) Discussed presentation, testing and tx plan with Dr. Tamayo. Pt. admitted to Dr. Tamayo for further eval.and tx. [] Final Impression Final Impression 1. Dyspnea[] 2. Pneumonia- suspect aspiration or and Atypical 3. Anemia 12.5 Hgb 4. DM glu 158 5. Hypernatremia 149 6. Hx Aspiration 7. Malnutrition Ab.2.4 8. UTI Dragon Disclaimer Dragon Disclaimer This electronic medical record was generated, in whole or in part, using a voice recognition dictation system. Dragon Disclaimer This chart was dictated in whole or in part using Voice Recognition software in a busy, high-work load, and often noisy Emergency Department environment. It may contain unintended and wholly unrecognized errors or omissions. Discharge Summary Visit Information Final Diagnosis Problems Medical Problems: (1) Pneumonia Status: Acute Brief Hospital Course Allergies Allergies Coded Allergies Type Severity Reaction Last Updated Verified Penicillins Allergy Intermediate hives 10/16/13 Yes Vital Signs Vital Signs Date Time Temp Pulse Resp B/P (MAP) Pulse Ox O2 Delivery O2 Flow Rate FiO2 07/16/18 22:55 99 26 131/63 (85) 91 Nasal Cannula 2.0 07/16/18 22:32 99.9 Lab Results Laboratory Tests Test 07/16/18 22:20 07/16/18 22:45 White Blood Count 11.0 x10^3/uL (4.0-11.0) Red Blood Count 4.05 x10^6/uL (4.30-5.70) Hemoglobin 12.5 g/dL (13.0-17.5) Hematocrit 38.4 % (39.0-53.0) Mean Corpuscular Volume 95 fL (79-100) Mean Corpuscular Hemoglobin 31 pg (25-35) Mean Corpuscular Hemoglobin Concent 33 g/dL (31-37) Red Cell Distribution Width 15.2 % (11.5-14.5) Platelet Count 180 x10^3/uL (140-400) Neutrophils (%) (Auto) 68 % (31-73) Lymphocytes (%) (Auto) 21 % (24-48) Monocytes (%) (Auto) 11 % (0-9) Eosinophils (%) (Auto) 0 % (0-3) Basophils (%) (Auto) 1 % (0-3) Neutrophils # (Auto) 7.5 x10^3uL (1.8-7.7) Lymphocytes # (Auto) 2.3 x10^3/uL (1.0-4.8) Monocytes # (Auto) 1.2 x10^3/uL (0.0-1.1) Eosinophils # (Auto) 0.0 x10^3/uL (0.0-0.7) Basophils # (Auto) 0.1 x10^3/uL (0.0-0.2) Prothrombin Time 30.8 SEC (9.4-11.4) Prothromb Time International Ratio 3.3 (0.9-1.1) Activated Partial Thromboplast Time 38 SEC (23-33) D-Dimer (Jordyn) 1.40 mg/L (0.00-0.50) Urine Collection Type U cath Urine Color Yellow Urine Clarity Cloudy Urine pH 5.5 Urine Specific Arthur 1.020 Urine Protein 100 mg/dl (NEG-TRACE) Urine Glucose (UA) Neg mg/dL (NEG) Urine Ketones (Stick) Neg mg/dL (NEG) Urine Blood Small (NEG) Urine Nitrite Pos (NEG) Urine Bilirubin Neg (NEG) Urine Urobilinogen Dipstick 1 mg/dL (0.2 mg/dL) Urine Leukocyte Esterase Small (NEG) Urine RBC Occ /HPF (0-2) Urine WBC >40 /HPF (0-4) Urine Squamous Epithelial Cells Occ /LPF Urine Bacteria Many /HPF (0-FEW) Urine Mucus Slight /LPF Sodium Level 149 mmol/L (136-145) Potassium Level 4.4 mmol/L (3.5-5.1) Chloride Level 114 mmol/L (98-107) Carbon Dioxide Level 29 mmol/L (21-32) Anion Gap 6 (6-14) Blood Urea Nitrogen 24 mg/dL (8-26) Creatinine 1.1 mg/dL (0.7-1.3) Estimated GFR (Cockcroft-Gault) 64.9 Glucose Level 158 mg/dL (70-99) Lactic Acid Level 1.1 mmol/L (0.4-2.0) Calcium Level 8.9 mg/dL (8.5-10.1) Magnesium Level 2.1 mg/dL (1.8-2.4) Total Bilirubin 0.3 mg/dL (0.2-1.0) Direct Bilirubin 0.1 mg/dL (0.0-0.2) Aspartate Amino Transf (AST/SGOT) 16 U/L (15-37) Alanine Aminotransferase (ALT/SGPT) 23 U/L (16-63) Alkaline Phosphatase 65 U/L (46-116) Creatine Kinase 42 U/L (39-308) Creatine Kinase MB (Mass) 1.2 ng/mL (0.0-3.6) Creatine Kinase MB Relative Index 2.9 % (0-4) Troponin I Quantitative < 0.017 ng/mL (0-0.055) XN-Log-H-Type Natriuretic Peptide 787 pg/mL (0-449) Total Protein 7.2 g/dL (6.4-8.2) Albumin 2.4 g/dL (3.4-5.0) Lipase 55 U/L (73-393) Urine Opiates Screen Neg (NEG) Urine Methadone Screen Neg (NEG) Urine Barbiturates Neg (NEG) Urine Phencyclidine Screen Neg (NEG) Urine Amphetamine/Methamphetamine Neg (NEG) Urine Benzodiazepines Screen Neg (NEG) Urine Cocaine Screen Neg (NEG) Urine Cannabinoids Screen Neg (NEG) Urine Ethyl Alcohol Neg (NEG) Influenza Type A (Rapid) Negative (NEGATIVE) Influenza Type B (Rapid) Negative (NEGATIVE) Brief Hospital Course Mr. Ramos is a 78 old male who presented with increased dyspnea- suspect aspiration, pneumonia. Admit to Dr. Tamayo Discharge Information Condition at Discharge: Improved Dischare Medications Current Medications Lactated Ringer's 1,000 ml @ 100 mls/hr Q10H IV Last administered on 07/16/18at 23:17; Admin Dose 100 MLS/HR; Start 07/16/18 at 23:00; Stop 07/17/18 at 08:59 Ceftriaxone Sodium 1 gm/ Sodium Chloride 50 ml @ 100 mls/hr 1X ONCE IV Last administered on 07/16/18at 23:17; Admin Dose 100 MLS/HR; Start 07/16/18 at 23:00; Stop 07/16/18 at 23:29; Status DC Vancomycin HCl 1 gm/Sodium Chloride 250 ml @ 250 mls/hr 1X ONCE IV ; Start 07/16/18 at 22:30; Stop 07/16/18 at 23:29; Status UNV Active Scripts Active Reported Milk Of Magnesia (Magnesium Hydroxide) 2,400 Mg/10 Ml Oral.susp 2,400 Mg PO PRN DAILY PRN LAST DOSE GIVEN: DATE: TIME: NEXT DOSE DUE: DATE: TIME: Fleet Enema (Na Phos,M-B/Na Phos,Di-Ba) 133 Ml Enema 133 Ml RC PRN DAILY PRN LAST DOSE GIVEN: DATE: TIME: NEXT DOSE DUE: DATE: TIME: Zofran Odt (Ondansetron) 4 Mg Tab.rapdis 4 Mg PO PRN Q8HRS PRN LAST DOSE GIVEN: DATE: TIME: NEXT DOSE DUE: DATE: TIME: Dulcolax (Bisacodyl) 10 Mg Supp.rect 10 Mg RC PRN DAILY PRN LAST DOSE GIVEN: DATE: TIME: NEXT DOSE DUE: DATE: TIME: Acetaminophen 500 Mg Tablet 500 Mg PO PRN Q4HRS PRN LAST DOSE GIVEN: DATE: TIME: NEXT DOSE DUE: DATE: TIME: Provera (Medroxyprogesterone Acetate) 5 Mg Tablet 5 Mg PO DAILY LAST DOSE GIVEN: DATE: TIME: NEXT DOSE DUE: DATE: TIME: Levemir Flextouch (Insulin Detemir) 100 Unit/1 Ml Insuln.pen 20 Unit SQ DAILY LAST DOSE GIVEN: DATE: TIME: NEXT DOSE DUE: DATE: TIME: Victoza 3-Rio (Liraglutide) 0.6 Mg/0.1 Ml Pen.injctr 1.8 Mg SQ DAILY LAST DOSE GIVEN: DATE: TIME: NEXT DOSE DUE: DATE: TIME: Trazodone Hcl 100 Mg Tablet 50 Tab PO QHS LAST DOSE GIVEN: DATE: TIME: NEXT DOSE DUE: DATE: TIME: Multi-Day Vitamins (Multivitamin) 1 Each Tablet 1 Tab PO DAILY LAST DOSE GIVEN: DATE: TIME: NEXT DOSE DUE: DATE: TIME: Klor-Con M20 (Potassium Chloride) 20 Meq Tab.er.prt 40 Meq PO DAILY LAST DOSE GIVEN: DATE: TIME: NEXT DOSE DUE: DATE: TIME: Omeprazole 20 Mg Capsule.dr 20 Mg PO DAILYAC LAST DOSE GIVEN: DATE: TIME: NEXT DOSE DUE: DATE: TIME: Novolog Flexpen (Insulin Aspart) 100 Unit/1 Ml Insuln.pen 1 Unit SQ TIDWMEALS LAST DOSE GIVEN: DATE: TIME: NEXT DOSE DUE: DATE: TIME: Synthroid (Levothyroxine Sodium) 25 Mcg Tablet 25 Mcg PO DAILY08 LAST DOSE GIVEN: DATE: TIME: NEXT DOSE DUE: DATE: TIME: Synthroid (Levothyroxine Sodium) 137 Mcg Tablet 137 Tab PO DAILY08 LAST DOSE GIVEN: DATE: TIME: NEXT DOSE DUE: DATE: TIME: Fluvoxamine Maleate 100 Mg Tablet 100 Mg PO DAILY LAST DOSE GIVEN: DATE: TIME: NEXT DOSE DUE: DATE: TIME: Famotidine 20 Mg Tablet 20 Mg PO BID LAST DOSE GIVEN: DATE: TIME: NEXT DOSE DUE: DATE: TIME: Doxazosin Mesylate 8 Mg Tablet 8 Mg PO QHS LAST DOSE GIVEN: DATE: TIME: NEXT DOSE DUE: DATE: TIME: Amlodipine Besylate 10 Mg Tablet 10 Mg PO DAILY LAST DOSE GIVEN: DATE: TIME: NEXT DOSE DUE: DATE: TIME: KISHA GILES MD Jul 16, 2018 22:24
[2018-07-16] MEDS ORDERED: VANCOMYCIN 1 GM in IV NORMAL SALINE 250ML 250 ML IV ONE (22:30)
[2018-07-16 22:41] LABS: BASO # 0.1 x10^3/uL (0.0-0.2); BASO % 1 % (0-3); EOS % 0 % (0-3); HEMATOCRIT 38.4 % (39.0-53.0); HEMOGLOBIN 12.5 g/dL (13.0-17.5); LYMPH # 2.3 x10^3/uL (1.0-4.8); LYMPH % 21 % (24-48); MEAN CORPUSCULAR HEMOGLOBIN 31 pg (25-35); MEAN CORPUSCULAR HGB CONC 33 g/dL (31-37); MEAN CORPUSCULAR VOLUME 95 fL (79-100); MONO # 1.2 x10^3/uL (0.0-1.1); MONO % 11 % (0-9); NEUT # 7.5 x10^3uL (1.8-7.7); NEUT % 68 % (31-73); PLATELET COUNT 180 x10^3/uL (140-400); RED BLOOD COUNT 4.05 x10^6/uL (4.30-5.70); RED CELL DISTRIBUTION WIDTH 15.2 % (11.5-14.5)
[2018-07-16 22:52] LABS: BILIRUBIN,URINE NEG (NEG); CLARITY,URINE CLOUDY; COLOR,URINE YELLOW; GLUCOSE,URINE NEG (NEG)
[2018-07-16 22:53] LABS: BACTERIA,URINE MANY /HPF (0-FEW); NITRITE,URINE POS (NEG); RBC,URINE OCC /HPF (0-2); SQUAMOUS EPITHELIAL CELL,UR OCC /LPF; UROBILINOGEN,URINE 1 mg/dL (0.2 mg/dL); WBC,URINE >40 /HPF (0-4)
[2018-07-16 22:54] LABS: BARBITURATES NEG (NEG); BENZODIAZEPINES NEG (NEG); CANNABINOIDS NEG (NEG); COCAINE NEG (NEG); METHADONE NEG (NEG); OPIATES NEG (NEG); PHENCYCLIDINE NEG (NEG)
[2018-07-16 22:55] LABS: AMPHETAMINE/METHAMPHETAMINE NEG (NEG)
--- NOTE | 2018-07-16 22:55 | RAD ---
Indication:Rhonchi, cough, fever, hx aspiration TECHNIQUE:Portable AP chest X-ray COMPARISON:07/30/2017 FINDINGS: Heart is normal in size. Patient is rotated to the left side. Diffuse bilateral interstitial opacities are seen. No pneumothorax or pleural effusion. Visualized bony thorax within normal limits. IMPRESSION: Findings suggests atypical/viral infection. Electronically signed by: Brannon Dasilva DO (07/16/2018 10:50 PM) [facility]
[2018-07-16] MEDS ORDERED: IV RINGERS SOLUTION,LACTATED 1,000 ML IV SCH (23:00)
[2018-07-16 23:01] LABS: ALBUMIN 2.4 g/dL (3.4-5.0); CALCIUM 8.9 mg/dL (8.5-10.1); CREATININE 1.1 mg/dL (0.7-1.3); DIRECT BILIRUBIN 0.1 mg/dL (0.0-0.2); GFR 64.9; MAGNESIUM 2.1 mg/dL (1.8-2.4); POTASSIUM 4.4 mmol/L (3.5-5.1); TOTAL BILIRUBIN 0.3 mg/dL (0.2-1.0); TOTAL PROTEIN 7.2 g/dL (6.4-8.2)
[2018-07-16] MEDS ORDERED: cefTRIAXone SODIUM 1 GM VIAL IV ONE (23:11)
[2018-07-16] MEDS ORDERED: IV NORMAL SALINE 50ML 50 ML ONE (23:11)
[2018-07-16 23:17] LABS: INFLUENZA A PATIENT NEGATIVE (NEGATIVE); INFLUENZA B PATIENT NEGATIVE (NEGATIVE)
[2018-07-17] MEDS ORDERED: VANCOMYCIN 2 GM in IV NORMAL SALINE 500ML 500 ML IV ONE ×2
[2018-07-17] MEDS ORDERED: IV NORMAL SALINE 500ML 500 ML ONE (00:25)
[2018-07-17] MEDS ORDERED: VANCOMYCIN 1 GM VIAL. ONE (00:25)
[2018-07-17] MEDS ORDERED: ONDANSETRON PF 4 MG/2 ML VIAL. IV PRN (00:45)
[2018-07-17] MEDS ORDERED: VANCOMYCIN 1 GM in IV NORMAL SALINE 250ML 250 ML IV ONE (00:45)
[2018-07-17] MEDS ORDERED: IV RINGERS SOLUTION,LACTATED 1,000 ML IV SCH (01:00)
[2018-07-17 02:26] VITALS: BP 147/74
[2018-07-17] MEDS: VANCOMYCIN PER PHARMACY MC PRN (03:16)
--- NOTE | 2018-07-17 04:18 | EKG ---
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
[2018-07-17 05:31] VITALS: BP 153/71
[2018-07-17] MEDS: IPRATRPIUM/ALBUTEROL 0.5/2.5MG 3 ML NEBU. NEB SCH ×4 (05:52→20:22)
[2018-07-17] MEDS ORDERED: VALP250S18 PO ×2 (05:57)
[2018-07-17] MEDS ORDERED: INSU100I27 SQ (05:57)
[2018-07-17] MEDS ORDERED: WARF10TA45 PO (05:57)
[2018-07-17] MEDS ORDERED: LEVO500T59 PO (05:57)
[2018-07-17 10:30] VITALS: BP 157/68
[2018-07-17] MEDS ORDERED: ONDANSETRON ODT 4 MG TAB.RAPDIS PO PRN (10:45)
[2018-07-17] MEDS ORDERED: SODIUM PHOSPHATES 19/7GM 133 ML ENEMA. RC PRN (10:45)
[2018-07-17] MEDS ORDERED: BISACODYL 10 MG SUPP.RECT PR PRN (11:00)
[2018-07-17] MEDS: amLODIPine BESYLATE 10 MG TABLET PO SCH (11:00)
[2018-07-17] MEDS: PANTOPRAZOLE 40 MG TABLET. PO SCH (11:00)
[2018-07-17] MEDS: MULTIVITAMIN with MINERAL TABLET. PO SCH (11:00)
[2018-07-17] MEDS ORDERED: DEXTROSE 50% 25 GM / 50ML DISP.SYRIN. IV PRN ×2 (11:00→12:45)
[2018-07-17] MEDS: VALPROATE ACID 250 MG/5 ML ORAL SOLUTION PO SCH (11:00)
[2018-07-17] MEDS: POTASSIUM CHLORIDE 20 MEQ TABLET.ER. PO SCH (11:00)
[2018-07-17] MEDS ORDERED: ACETAMINOPHEN 500 MG TABLET PO PRN (11:00)
[2018-07-17] MEDS: FAMOTIDINE 20 MG TABLET PO SCH ×2 (11:00→21:55)
[2018-07-17] MEDS: medroxyPROGESTERone 5 MG TABLET PO SCH (11:00)
[2018-07-17] MEDS ORDERED: MAGNESIUM HYDROXIDE 2,400 MG/30 ML ORAL.SUSP. PO PRN (11:15)
[2018-07-17] MEDS: LEVOTHYROXINE 25 MCG TABLET. PO SCH (11:30)
[2018-07-17] MEDS: LEVOTHYROXINE 137 MCG TABLET PO SCH (11:30)
--- NOTE | 2018-07-17 11:42 | HP ---
ADMIT DATE: 07/16/2018 HISTORY OF PRESENT ILLNESS: The patient is a 78-year-old male patient, a resident at [facility], who apparently was brought to the Emergency Room as a recent swallow study was found to have aspiration with swallowing. The patient started exhibiting increasing dyspnea and hypoxia. He has multiple medical problems and was brought to the Emergency Room where he was extensively investigated and was found to have aspiration pneumonia, hypernatremia and possible UTI. He was admitted and was started on IV antibiotic for healthcare-associated pneumonia as well as possible UTI. The patient himself is extremely demented, does not give any useful information. PAST MEDICAL HISTORY: His past medical history is significant for atrial fibrillation, rate controlled, well anticoagulated; congestive heart failure, hypertension, hyperlipidemia, chronic renal insufficiency, benign prostatic hypertrophy, bladder outlet obstruction requiring suprapubic catheter, anemia, type 2 diabetes mellitus, and hypothyroidism. PAST SURGICAL HISTORY: Past surgical history is significant for suprapubic catheter placement. ALLERGIES: He is ALLERGIC TO PENICILLIN. MEDICATIONS: He is currently on following medications: He is on warfarin 7 mg every other day and Coumadin 8 mg every other day, doxazosin 8 mg at bedtime, amlodipine 10 mg daily, acetaminophen 650 mg every 4 hours, valproic acid 875 mg p.o. daily, valproic acid 500 mg p.o. at bedtime, fluvoxamine maleate 100 mg p.o. daily, trazodone 100 mg at bedtime. He is on potassium chloride 40 mEq p.o. daily, bisacodyl 10 mg rectally daily p.r.n. for constipation, milk of magnesia 30 mL p.o. daily p.r.n. for constipation, Fleet Enema 133 mL rectally daily p.r.n. for constipation. He is on ondansetron ODT 4 mg every 8 hours, famotidine 20 mg twice a day, omeprazole 20 mg daily, Victoza 1.8 mg subcutaneously daily. He is on NovoLog insulin before meals and detemir insulin 20 units daily and 15 units at bedtime. He is on medroxyprogesterone acetate 5 mg daily. He is on levothyroxine 137 mcg once a day and levothyroxine sodium 25 mcg daily, multivitamin 1 tablet once a day. FAMILY HISTORY: Noncontributory. SOCIAL HISTORY: He is a resident at [facility] in [place]. He does not smoke, drink alcohol or use any recreational drugs. REVIEW OF SYSTEMS: Review of systems is unobtainable. The patient is extremely demented and does not give any useful information when I saw him. PHYSICAL EXAMINATION: GENERAL: On arrival to the Emergency Room, he was clearly tachypneic, pale, but no jaundice, cyanosis or thyromegaly. No jugular venous distention. No limb edema. VITAL SIGNS: His heart rate was 98, blood pressure was 151/76, temperature was 99.9, respiratory rate 30 and oxygen saturation was 91% on 2 liters of oxygen. HEENT: Examination of the head, eyes, ears, nose and throat showed normocephalic, atraumatic. NECK: Supple. HEART: Showed normal first and second heart sounds. No gallop, rub or murmur. CHEST: Shows central trachea, equal bilateral expansion, air entry, vesicular sounds with bilateral crepitation, posteriorly very few scattered rhonchi. ABDOMEN: Distended, soft, nontender. NEUROLOGIC: He is clearly very demented; however, all his cranial nerves are grossly intact. EXTREMITIES: He seemed to be able to move his upper extremities to much good extent than his lower extremities. He is mostly bedbound, chair bound. He has sacral decubitus ulcer. LABORATORY DATA AND IMAGING STUDIES: His lab work on admission showed a white cell count of 11,000, hemoglobin 12.5, hematocrit 38, MCV 95 and platelet count of 180,000. Serum sodium was 149, potassium 4.4, chloride 114, bicarbonate 29, anion gap of 6, BUN 24, creatinine 1.1, estimated GFR was 64 mL per minute. His blood glucose 158, lactic acid is 1.1, calcium was 8.9, magnesium 2.1. Total bilirubin, AST, ALT, alkaline phosphatase were normal. Troponin was less than 0.017. His beta natriuretic peptide was 787, total protein was 7.2, albumin 2.4. His lipase was 55 and TSH was 3.91. His prothrombin time was 30.8, INR of 3.3, aPTT was 38, and D-dimer was 1.4. Urinalysis showed the urine was yellow, cloudy with the pH of 5.5, specific gravity 1.020. There was large amount of protein, negative for glucose and ketones. There is a small amount of blood. The urine was positive for nitrite. There was a small amount of blood, negative for bilirubin, small amount of leukocyte esterase. There are occasional RBCs, more than 40 WBCs and too many bacteria. His toxic screen was negative. His influenza A and B were negative. His chest x-ray showed that the heart size is normal. The patient is rotated to the left. There is diffuse bilateral interstitial opacities are seen. No pneumothorax or pleural effusion visualized, bony thorax was within normal range. The findings suggest atypical or viral infection. IMPRESSION AND PLAN: So, in summary, this is a 78-year-old male patient, a resident at [facility] in [place], who was admitted with increasing shortness of breath and hypoxia. He was admitted with diagnoses of aspiration pneumonia as well as urinary tract infection. Given his dysphagia, we will keep him n.p.o., start him on IV fluid. As his sodium is high, I will switch him to D5W. As he is diabetic, so we will cover him with insulin. We will continue with vancomycin and Levaquin. REID BYERS MD DR: MAHAD/paulie JOB#: [id number] / [id number]
[2018-07-17] MEDS: IV DEXTROSE 5% 1,000 ML IV SCH (11:47)
--- NOTE | 2018-07-17 11:52 | PN ---
DATE: 07/17/2018 SUBJECTIVE: The patient is resting, slightly propped up in bed, no apparent distress, is very confused, disoriented; however, he denied any chest pain. He clearly continued to be congested and has scant bouts of cough, this seems to be moist. PHYSICAL EXAMINATION: GENERAL: When I examined him; he looked pale, but no jaundice, cyanosis, or thyromegaly. No jugular venous distension. No limb edema. VITAL SIGNS: His heart rate was 88, blood pressure 157/68, temperature was 98.9, respiratory rate 20, and oxygen saturation was 90% on 3 liters oxygen. HEAD, EYES, EARS, NOSE AND THROAT: Normocephalic, atraumatic. NECK: Supple. HEART: Showed normal first and second heart sounds. No gallop, rub or murmur. CHEST: Clear to auscultation. No crepitation or rhonchi. ABDOMEN: Distended, soft, nontender. NEUROLOGIC: He was clearly demented; however, all his cranial nerves are intact. He moves upper extremities bed bound, chair bound. He has sacral decubitus ulcer. He has suprapubic catheter in place. His intake over the last 24 hours and output were incompletely recorded. LABORATORY DATA: No lab work was ordered for today. PLAN: My plan is to continue with IV vancomycin as well as levofloxacin. I reconciled all his medication. I will change his IV fluid to D5W given his hypernatremia. We will start him on insulin sliding scale every 6 hours. I will hold his Levemir for now. I have also consulted the speech therapy for swallowing evaluation. ASSESSMENT: In summary, this is a 78-year-old male patient, who was admitted with increasing shortness of breath, hypoxia, and was diagnosed with: A. Healthcare-associated pneumonia. B. Urinary tract infection. He has multitude of medical problems including atrial fibrillation, rate controlled, well anticoagulated, congestive heart failure, hypertension, hyperlipidemia, chronic renal insufficiency, benign prostatic hypertrophy with bladder outlet obstruction requiring suprapubic catheter, dementia, type 2 diabetes and hyperthyroidism. REID BYERS MD DR: MAHAD/paulie JOB#: [id number] / [id number]
[2018-07-17] MEDS ORDERED: NON FORMULARY ITEM (Insulin Aspart (Novolog Flexpen) 1 UNIT) SQ SCH (12:00)
[2018-07-17] MEDS: INSULIN LISPRO 300 UNITS/3 ML INSULN.PEN. SQ SCH ×2 (12:00→16:55)
[2018-07-17] MEDS: VANCOMYCIN 1.25 GM in IV NORMAL SALINE 250ML 250 ML IV SCH (12:51)
[2018-07-17 15:21] VITALS: BP 144/71
[2018-07-17] MEDS ORDERED: INSULIN LISPRO 300 UNITS/3 ML INSULN.PEN. SQ SCH (17:00)
[2018-07-17 19:31] VITALS: BP 161/77
[2018-07-17] MEDS ORDERED: VALPROIC ACID 250 MG CAPSULE. PO SCH (21:00)
[2018-07-17] MEDS ORDERED: INSULIN DETEMIR 15 UNIT SQ SCH (21:00)
[2018-07-17] MEDS: VALPROATE ACID 250 MG/5 ML ORAL SOLUTION PEG SCH (21:54)
[2018-07-17] MEDS: DOXAZOSIN MESYLATE 4 MG TABLET PO SCH (21:54)
[2018-07-17] MEDS: LACTOBACILLUS RHAMNOSUS GG 1 CAPSULE. PO SCH (21:55)
[2018-07-17] MEDS: traZODone 50 MG TABLET. PO SCH (21:55)
[2018-07-17 22:55] VITALS: BP 160/78
[2018-07-18] MEDS: VANCOMYCIN 1.25 GM in IV NORMAL SALINE 250ML 250 ML IV SCH ×2 (00:11→12:00)
[2018-07-18 05:36] VITALS: BP 145/88
[2018-07-18] MEDS: LEVOTHYROXINE 25 MCG TABLET. PO SCH (05:37)
[2018-07-18] MEDS: LEVOTHYROXINE 137 MCG TABLET PO SCH (05:37)
[2018-07-18] MEDS: IV DEXTROSE 5% 1,000 ML IV SCH ×2 (05:47→12:11)
[2018-07-18 06:56] LABS: BASO % 1 % (0-3); EOS # 0.1 x10^3/uL (0.0-0.7); EOS % 1 % (0-3); HEMATOCRIT 39.7 % (39.0-53.0); HEMOGLOBIN 13.3 g/dL (13.0-17.5); LYMPH # 2.3 x10^3/uL (1.0-4.8); LYMPH % 25 % (24-48); MEAN CORPUSCULAR HEMOGLOBIN 31 pg (25-35); MEAN CORPUSCULAR HGB CONC 34 g/dL (31-37); MEAN CORPUSCULAR VOLUME 93 fL (79-100); MONO % 11 % (0-9); NEUT # 5.8 x10^3uL (1.8-7.7); NEUT % 63 % (31-73); PLATELET COUNT 185 x10^3/uL (140-400); RED BLOOD COUNT 4.25 x10^6/uL (4.30-5.70); RED CELL DISTRIBUTION WIDTH 14.4 % (11.5-14.5); WHITE BLOOD COUNT 9.2 x10^3/uL (4.0-11.0)
[2018-07-18 07:03] LABS: ALBUMIN 2.2 g/dL (3.4-5.0); ALBUMIN/GLOBULIN RATIO 0.4 (1.0-1.7); CALCIUM 8.6 mg/dL (8.5-10.1); CREATININE 0.8 mg/dL (0.7-1.3); GFR 93.7; POTASSIUM 3.6 mmol/L (3.5-5.1); TOTAL BILIRUBIN 0.6 mg/dL (0.2-1.0); TOTAL PROTEIN 7.1 g/dL (6.4-8.2)
[2018-07-18] MEDS: PANTOPRAZOLE 40 MG TABLET. PO SCH (07:30)
[2018-07-18 07:37] LABS: % ATYL 1 % (0-0); % BANDS 2 % (0-9); % LYMPHS 34 % (24-48); % METAS 1 % (0-0); % MONOS 7 % (0-10); % SEGS 55 % (35-66)
[2018-07-18 07:38] LABS: PLATELET CLUMP PRESENT; PLT ESTIMATE ADEQUATE (ADEQUATE); SMUDGE CELLS PRESENT
[2018-07-18] MEDS: LACTOBACILLUS RHAMNOSUS GG 1 CAPSULE. PO SCH ×2 (07:40→20:51)
[2018-07-18] MEDS: VALPROATE ACID 250 MG/5 ML ORAL SOLUTION PO SCH (07:40)
[2018-07-18] MEDS: amLODIPine BESYLATE 10 MG TABLET PO SCH (07:41)
[2018-07-18] MEDS: POTASSIUM CHLORIDE 20 MEQ TABLET.ER. PO SCH (07:41)
[2018-07-18] MEDS: FAMOTIDINE 20 MG TABLET PO SCH ×2 (07:41→20:52)
[2018-07-18] MEDS: MULTIVITAMIN with MINERAL TABLET. PO SCH (07:42)
[2018-07-18] MEDS: medroxyPROGESTERone 5 MG TABLET PO SCH (07:42)
[2018-07-18] MEDS: NON FORMULARY ITEM (Liraglutide (Victoza 3-Pak) 1.8 MG) SQ SCH (07:42)
[2018-07-18] MEDS ORDERED: LEVOTHYROXINE 137 MCG TABLET PO SCH (08:00)
[2018-07-18] MEDS: INSULIN LISPRO 300 UNITS/3 ML INSULN.PEN. SQ SCH ×3 (08:00→16:58)
[2018-07-18] MEDS ORDERED: INSULIN DETEMIR 20 UNIT SQ SCH (09:00)
[2018-07-18 10:21] VITALS: BP 130/69
--- NOTE | 2018-07-18 11:28 | PN ---
DATE: 07/18/2018 SUBJECTIVE: The patient is resting slightly propped up in bed, in no apparent distress. He is more awake and alert, asking for something to eat or drink. Unfortunately, our speech therapist put him n.p.o. Yesterday, he was more confused and his sodium was higher at 149. His daughter has called and stated she does not want him to be aspirate and we will have to talk to her tomorrow with our social media marketing manager to decide on further management. The patient will probably need another swallowing evaluation before we decide on tube feeding if that is what his daughter wants as I feel that he is more awake today and more alert than yesterday after his sodium dropped down from 149 to 140. PHYSICAL EXAMINATION: GENERAL: When I examined him today, he looked well and was clearly in no apparent respiratory distress. Pale, but no jaundice, cyanosis, or thyromegaly. No jugular venous distention. No lower limb edema. VITAL SIGNS: His heart rate was 66, blood pressure was 145/88, temperature was 98.4, respiratory rate 20, and oxygen saturation was 92% on 3 liters of oxygen by nasal cannula. HEAD, EYES, EARS, NOSE AND THROAT: Showed normocephalic, atraumatic. NECK: Supple. HEART: Showed normal first and second heart sounds. No gallop, rub or murmur. CHEST: Showed central trachea, equal bilateral expansion, air entry, vesicular sounds. No crepitation or rhonchi anteriorly. He has bilateral basal crepitation posteriorly, very few scattered rhonchi, much less than yesterday. ABDOMEN: Scaphoid, soft, nontender. No guarding or rigidity. No organomegaly. All hernial orifices intact. Bowel sounds normal. NEUROLOGIC: The patient is definitely more awake today, alert, opens eyes, tracks and responds verbally more appropriately, although he has marked muscle wasting and weakness of all his limbs. His intake over the last 24 hours was incompletely recorded. Output was 850. LABORATORY DATA: His lab work this morning showed white cell count is down to 9200, hemoglobin 13.3, hematocrit 39.7, MCV 93, and platelet count of 185,000. His chemistry showed a serum sodium of 140, potassium 3.6, chloride 105, bicarbonate 28, anion gap of 9, BUN 13, creatinine 0.8, estimated GFR was 94 mL per minute. Her glucose was 173, calcium was 8.6. Total bilirubin, AST, ALT, alkaline phosphatase were normal. Total protein was 7.1, albumin was 2.2. His prothrombin time was 30.8, INR of 3.3. His aPTT was 38 and D-dimer was high at 1.4. His tox screen was negative. Urinalysis showed the patient has more than 40 wbc's, positive for nitrite. Nasal screen for MRSA by PCR was negative and his influenza A and B were negative. ASSESSMENT: 1. Healthcare-associated pneumonia. 2. Urinary tract infection. 3. Dysphagia with aspiration of all consistencies. 4. Atrial fibrillation, rate controlled, well anticoagulated. 5. Congestive heart failure seems to be clinically well compensated. 6. Hypertension. 7. Hyperlipidemia. 8. Chronic renal insufficiency. 9. Benign prostatic hypertrophy with bladder outlet obstruction requiring suprapubic catheter. 10. Dementia. 11. Type 2 diabetes mellitus. 12. Hypothyroidism. PLAN: To continue with IV antibiotic. Continue with IV fluid for now. I will repeat all his labs tomorrow including his prothrombin time and INR and we will discuss further management with the speech therapist as well as his daughter after obtaining the outside outpatient swallowing evaluation from the [facility]. REID BYERS MD DR: MAHAD/paulie JOB#: [id number] / [id number]
[2018-07-18] MEDS: IPRATRPIUM/ALBUTEROL 0.5/2.5MG 3 ML NEBU. NEB SCH ×3 (11:29→20:34)
[2018-07-18 12:19] LABS: VANC TR 16.7 mcg/mL (10.0-20.0)
[2018-07-18] MEDS: VANCOMYCIN PER PHARMACY MC PRN (13:10)
[2018-07-18 14:45] VITALS: BP 164/82
[2018-07-18 19:39] VITALS: BP 129/74
[2018-07-18] MEDS: DOXAZOSIN MESYLATE 4 MG TABLET PO SCH (20:51)
[2018-07-18] MEDS: VALPROATE ACID 250 MG/5 ML ORAL SOLUTION PEG SCH (20:51)
[2018-07-18] MEDS: traZODone 50 MG TABLET. PO SCH (20:52)
[2018-07-18 23:09] VITALS: BP 134/75
[2018-07-19] MEDS: VANCOMYCIN 1.25 GM in IV NORMAL SALINE 250ML 250 ML IV SCH (00:24)
[2018-07-19] MEDS: IV DEXTROSE 5% 1,000 ML IV SCH ×2 (03:00→21:04)
[2018-07-19] MEDS: IPRATRPIUM/ALBUTEROL 0.5/2.5MG 3 ML NEBU. NEB SCH ×4 (04:59→20:36)
[2018-07-19 05:31] VITALS: BP 125/60
[2018-07-19] MEDS: LEVOTHYROXINE 25 MCG TABLET. PO SCH (05:31)
[2018-07-19] MEDS: LEVOTHYROXINE 137 MCG TABLET PO SCH (05:31)
[2018-07-19 06:36] LABS: CALCIUM 8.4 mg/dL (8.5-10.1); CREATININE 0.9 mg/dL (0.7-1.3); GFR 81.8; POTASSIUM 3.9 mmol/L (3.5-5.1)
[2018-07-19] MEDS: PANTOPRAZOLE 40 MG TABLET. PO SCH (07:30)
[2018-07-19] MEDS: INSULIN LISPRO 300 UNITS/3 ML INSULN.PEN. SQ SCH ×3 (08:00→17:00)
[2018-07-19] MEDS: FAMOTIDINE 20 MG TABLET PO SCH ×2 (09:00→21:00)
[2018-07-19] MEDS: amLODIPine BESYLATE 10 MG TABLET PO SCH (09:00)
[2018-07-19] MEDS: LACTOBACILLUS RHAMNOSUS GG 1 CAPSULE. PO SCH ×2 (09:00→21:00)
[2018-07-19] MEDS: MULTIVITAMIN with MINERAL TABLET. PO SCH (09:00)
[2018-07-19] MEDS: medroxyPROGESTERone 5 MG TABLET PO SCH (09:00)
[2018-07-19] MEDS: POTASSIUM CHLORIDE 20 MEQ TABLET.ER. PO SCH (09:00)
[2018-07-19] MEDS: VALPROATE ACID 250 MG/5 ML ORAL SOLUTION PO SCH (09:00)
[2018-07-19] MEDS: NON FORMULARY ITEM (Liraglutide (Victoza 3-Pak) 1.8 MG) SQ SCH (09:00)
[2018-07-19 11:00] VITALS: BP 158/81
[2018-07-19 15:00] VITALS: BP 162/79
--- NOTE | 2018-07-19 18:31 | PN ---
DATE: 07/19/2018 SUBJECTIVE: The patient is resting, slightly propped up in bed, in no apparent distress. He is definitely more awake, alert, and continued to ask for food and water. He was evaluated on Thursday by our speech therapist, who recommended to keep him n.p.o. He is very high risk for aspiration. However, at that time, his serum sodium was high at 149, and he was also more confused. He seemed to be more awake, alert now. His sodium is down to 137. PHYSICAL EXAMINATION: GENERAL: When I examined him this morning, he looked pale, but no jaundice, cyanosis or thyromegaly. No jugular venous distension. No limb edema. VITAL SIGNS: Her heart rate was 82, blood pressure was 125/60, temperature was 98.1, respiratory rate was 20, and oxygen saturation was 93% on 3 liters of oxygen by nasal cannula. HEAD, EYES, EARS, NOSE AND THROAT: Showed normocephalic, atraumatic. NECK: Supple. HEART: Showed normal first and second sounds. No gallop, rub or murmur. CHEST: Shows central trachea, equal bilateral expansion, air entry, ____ with bilateral basal crepitation posteriorly, very few scattered rhonchi. ABDOMEN: Distended, soft, nontender. NEUROLOGIC: He is definitely more awake, alert, responding appropriately; however, he has marked muscle wasting. He is mostly bedbound, chair bound. He has neurogenic bladder requiring suprapubic catheter. His intake was 1200, output was 3050. LABORATORY DATA: As of yesterday, his white cell count was 9200, hemoglobin 13.3, hematocrit 39, MCV 93, and platelet count 285,000. His chemistry showed a serum sodium of 137, potassium 3.9, chloride 103, bicarbonate 23, anion gap of 11, BUN 16, creatinine 0.9, estimated GFR was 82 mL per minute. His glucose was 173, calcium was 8.5. His prothrombin time was 32.1. INR of 3.4. Urinalysis showed the urine was yellow, cloudy with a pH of 5.5, specific gravity of 1.020. The urine was positive for protein, negative for glucose, positive for nitrite, and there was small amount of leukocyte esterase, occasional rbc's, more than 40 wbc's, and many bacteria. The urine toxicology screen was essentially negative. The nasal screen for MRSA by PCR was negative. His influenza A and B were negative. ASSESSMENT: 1. Healthcare-associated pneumonia. His blood culture is negative, so we discontinued his IV vancomycin. 2. Urinary tract infection with growth of Escherichia coli. He continues to be on IV levofloxacin. 3. Dysphagia with aspiration of all consistencies. 4. Atrial fibrillation, rate controlled, well anticoagulated. 5. Congestive heart failure, seems to be clinically well compensated. 6. Hypertension. 7. Hyperlipidemia. 8. Chronic renal insufficiency. 9. Benign prostatic hypertrophy with bladder outlet obstruction requiring Claros catheter. 10. Dementia. 11. Type 2 diabetes mellitus. 12. Hypothyroidism. PLAN: The plan is to continue with IV fluid. I will discontinue the IV vancomycin. I did reconsult the Speech Therapy to evaluate him as his serum sodium is down within normal range, he seemed to be more awake and alert. His prothrombin time and INR are 32.1 and 3.4, which if anything is supratherapeutic, we will hold on his Coumadin for now. REID BYERS MD DR: MAHAD/paulie JOB#: [id number] / [id number]
[2018-07-19 19:12] VITALS: BP 149/62
[2018-07-19] MEDS: VALPROATE ACID 250 MG/5 ML ORAL SOLUTION PEG SCH (21:00)
[2018-07-19] MEDS: DOXAZOSIN MESYLATE 4 MG TABLET PO SCH (21:00)
[2018-07-19] MEDS: traZODone 50 MG TABLET. PO SCH (21:00)
[2018-07-19 23:00] VITALS: BP 125/69
[2018-07-20] MEDS: LEVOTHYROXINE 137 MCG TABLET PO SCH (00:07)
[2018-07-20] MEDS: LEVOTHYROXINE 25 MCG TABLET. PO SCH (00:07)
[2018-07-20] MEDS: IPRATRPIUM/ALBUTEROL 0.5/2.5MG 3 ML NEBU. NEB SCH ×2 (05:22→09:11)
[2018-07-20] MEDS: IV DEXTROSE 5% 1,000 ML IV SCH (05:53)
[2018-07-20 06:05] VITALS: BP 154/81
[2018-07-20] MEDS: PANTOPRAZOLE 40 MG TABLET. PO SCH (07:30)
[2018-07-20] MEDS: INSULIN LISPRO 300 UNITS/3 ML INSULN.PEN. SQ SCH ×2 (08:00→12:00)
[2018-07-20] MEDS: FAMOTIDINE 20 MG TABLET PO SCH (09:00)
[2018-07-20] MEDS: MULTIVITAMIN with MINERAL TABLET. PO SCH (09:00)
[2018-07-20] MEDS: POTASSIUM CHLORIDE 20 MEQ TABLET.ER. PO SCH (09:00)
[2018-07-20] MEDS: medroxyPROGESTERone 5 MG TABLET PO SCH (09:00)
[2018-07-20] MEDS: amLODIPine BESYLATE 10 MG TABLET PO SCH (09:00)
[2018-07-20] MEDS: VALPROATE ACID 250 MG/5 ML ORAL SOLUTION PO SCH (09:00)
[2018-07-20] MEDS: NON FORMULARY ITEM (Liraglutide (Victoza 3-Pak) 1.8 MG) SQ SCH (09:00)
[2018-07-20] MEDS: LACTOBACILLUS RHAMNOSUS GG 1 CAPSULE. PO SCH (09:00)
[2018-07-20 10:23] VITALS: BP 124/63
--- NOTE | 2018-07-20 13:32 | DS ---
DATE OF DISCHARGE: DISCHARGE AND TRANSFER SUMMARY HOSPITAL COURSE: The patient is a 78-year-old male patient who was admitted with recurrent aspiration pneumonia and urinary tract infection. He apparently has had a video swallowing evaluation at [facility] that was inconclusive, our speech therapy evaluated him here and basically kept him n.p.o. as he was waiting for the result of this video swallowing evaluation from [place], which was apparently inconclusive so and as we can't do the video swallowing evaluation at the [facility], a decision was made to transfer him to [facility] to do a video swallowing evaluation and decide whether he can take things by mouth or consider a gastrostomy tube if that is what his family wants to do. When I examined him today, he was resting slightly propped up in bed, in no apparent respiratory distress. Awake, alert, responding appropriately questioning him, he denied any complaint except that he is thirsty and hungry. PHYSICAL EXAMINATION: GENERAL: On examining him, he was pale, no jaundice, cyanosis, or thyromegaly. No jugular venous distension. No limb edema. VITAL SIGNS: His heart rate was 61, blood pressure 124/63, temperature was 97.7, respiratory rate was 20, and oxygen saturation was 97% on 3 liters of oxygen. HEAD, EYES, EARS, NOSE AND THROAT: Showed normocephalic, atraumatic. NECK: Supple. HEART: Showed normal first and second heart sounds. No gallop, rub or murmur. CHEST: Clear to auscultation. No crepitation or rhonchi. ABDOMEN: Distended, soft, nontender. No guarding or rigidity. No organomegaly. All hernial orifices are intact. Bowel sounds normal. NEUROLOGIC: He was awake, alert. All his cranial nerves are intact. He has marked muscle wasting and all his muscle is mostly bedbound, chair bound. He has a suprapubic catheter in place. His intake over the last 24 hours was 2500, output was 475. LABORATORY DATA: As of his most recent lab work showed a white cell count 9200, hemoglobin 13, hematocrit 39, MCV 93, and platelet count of 185,000. Serum sodium was 137, potassium 3.9, chloride 103, bicarbonate 23, anion gap of 11, BUN 16, creatinine 0.9, estimated GFR was 82 mL per minute, his glucose 173, calcium was 8.4 and his prothrombin time was 32. INR of 3.4. His influenza A and B were negative. His nasal screen for MRSA by PCR was negative. Urinalysis was done, showed that he was positive for nitrite and large amount of leukocyte esterase and more than 40 wbc's. His toxic screen showed that his vancomycin trough level is 16.7. His urine cultures have shown growth of the Escherichia coli as well as mixed urogenital susan. DISCHARGE MEDICATIONS: He will be discharged to [facility] to continue on Tylenol 650 mg every 4 hours as needed, amlodipine 10 mg once a day, bisacodyl 10 mg rectally daily p.r.n. for constipation, terazosin ____ at bedtime, famotidine 20 mg p.o. b.i.d., fluvoxamine maleate 100 mg daily and NovoLog insulin as insulin sliding scale. Detemir insulin 20 units at bedtime and detemir insulin 15 units at bedtime, levothyroxine 137 mcg once a day, levothyroxine 25 mcg once a day, liraglutide for Victoza 1.8 mg subcutaneously daily, magnesium hydroxide for milk of magnesia 30 mL p.o. daily p.r.n. for constipation, medroxyprogesterone 5 mg daily, multivitamin with mineral 1 tablet once a day, sodium phosphate enema daily, omeprazole 20 mg daily, ondansetron ODT 4 mg every 4 hours, potassium chloride 40 mEq daily, trazodone 100 mg at bedtime, valproic acid 875 mg daily, valproic acid 500 mg at bedtime, warfarin for Coumadin 10 mg every other day, warfarin 8 mg every other day. FINAL DISCHARGE DIAGNOSES: 1. Healthcare-associated pneumonia. 2. Urinary tract infection with growth of Escherichia coli. 3. Dysphagia with aspiration of all consistencies. 4. Atrial fibrillation, rate controlled, well anticoagulated. 5. Congestive heart failure seems to be clinically well compensated. 6. Hypertension. 7. Hyperlipidemia. 8. Chronic renal insufficiency. 9. Benign prostatic hypertrophy with bladder outlet obstruction requiring Claros catheter. 10. Dementia. 11. Type 2 diabetes mellitus. 12. Hypothyroidism. REID BYERS MD DR: MAHAD/paulie JOB#: [id number] / [id number]
[2018-07-20] MEDS ORDERED: levoFLOXacin 500 MG TABLET PO SCH (21:00)
--- NOTE | 2018-07-20 23:27 | PN ---
DATE: 07/20/2018 SUBJECTIVE: The patient is resting, slightly propped up in bed, in no apparent respiratory distress. He is definitely more awake, alert, complaining that he is thirsty and hungry. Unfortunately, he failed his bedside swallow evaluation. We did receive a report for video swallowing evaluation from [facility] which was done on 07/16/2018 and apparently showed that the patient is aspirating with nectar and honey phase as described with markedly weakened pharyngeal contraction with significant residual in the vallecula. I left the message with the speech therapist that report is available to decide. PHYSICAL EXAMINATION: GENERAL: When I examined him this morning, he looked well and was clearly in no apparent respiratory distress, pale, but no jaundice, cyanosis, or thyromegaly. No jugular venous distention. No limb edema. VITAL SIGNS: His heart rate was 61, blood pressure 124/63, temperature was 97.7, respiratory rate was 20, and oxygen saturation was 97% on 3 liters of oxygen. HEAD, EYES, EARS, NOSE AND THROAT: Showed normocephalic, atraumatic. NECK: Supple. HEART: Showed normal first and second heart sounds. No gallop, rub or murmur. CHEST: Clear to auscultation. No crepitation or rhonchi. ABDOMEN: Distended, soft, nontender. NEUROLOGIC: He is definitely more awake, alert and responding appropriately. All his cranial nerves are intact. He does have generalized muscle weakness. He has a neurogenic bladder requiring suprapubic catheter. His intake over the last 24 hours was 2527, output was incompletely recorded. LABORATORY DATA: As of this morning, his serum sodium was 137, potassium 3.9, chloride 103, bicarbonate 23, anion gap of 11, BUN 16, creatinine 0.9, estimated GFR was 82 mL per minute, his glucose 173, calcium was 8.4 and his white cell count was 9200, hemoglobin 13, hematocrit 39, MCV 93, and platelet count of 185,000. His urine culture has grown more than 100,000 colony forming units per mL of Escherichia coli sensitive to cephalosporins. His blood cultures are so far negative. ASSESSMENT: 1. Aspiration pneumonia. 2. Urinary tract infection with growth of Escherichia coli. The patient continue on IV levofloxacin. 3. Dysphagia with aspiration of all consistencies. He is n.p.o., on IV fluid. 4. Atrial fibrillation, rate controlled, well anticoagulated. 5. Congestive heart failure seems to be clinically well compensated. 6. Hypertension. 7. Hyperlipidemia. 8. Chronic renal insufficiency. 9. Benign prostatic hypertrophy with bladder outlet obstruction requiring Claros catheter. 10. Dementia. 11. Type 2 diabetes mellitus. 12. Hypothyroidism. PLAN: My plan is to continue with IV fluid, continue with IV levofloxacin. Continue to monitor his prothrombin time, INR and adjust Coumadin accordingly. Await the decision by the speech therapist as we have the report from [facility]. REID BYERS MD DR: MAHAD/paulie JOB#: [id number] / [id number]
== END 2018-07-20 14:20 | disposition short-term general hospital (02) | DRG 177 ==
LOC: ER 22:13 → 1 SOUTH 23:00
PROVIDERS: ADMIT Internal Medicine; ATTEND Internal Medicine
DX: J69.0 Pneumonitis due to inhalation of food and vomit (principal); E43 Unspecified severe protein-calorie malnutrition; N39.0 Urinary tract infection, site not specified; E87.0 Hyperosmolality and hypernatremia; E46 Unspecified protein-calorie malnutrition; I13.0 Hypertensive heart and chronic kidney disease with heart failure and stage 1 through stage 4 chronic kidney disease, or unspecified chronic kidney disease; N13.8 Other obstructive and reflux uropathy; Y95 Nosocomial condition; B96.20 Unspecified Escherichia coli [E. coli] as the cause of diseases classified elsewhere; E03.9 Hypothyroidism, unspecified; E05.90 Thyrotoxicosis, unspecified without thyrotoxic crisis or storm; E11.22 Type 2 diabetes mellitus with diabetic chronic kidney disease; F03.90 Unspecified dementia, unspecified severity, without behavioral disturbance, psychotic disturbance, mood disturbance, and anxiety; E78.5 Hyperlipidemia, unspecified; I48.91 Unspecified atrial fibrillation; I50.9 Heart failure, unspecified; K21.9 Gastro-esophageal reflux disease without esophagitis; N18.9 Chronic kidney disease, unspecified; N40.1 Benign prostatic hyperplasia with lower urinary tract symptoms; R09.02 Hypoxemia; R13.10 Dysphagia, unspecified; F32.9 Major depressive disorder, single episode, unspecified; Z68.23 Body mass index [BMI] 23.0-23.9, adult; Z88.0 Allergy status to penicillin
CPT/HCPCS: 36415; 71045; 80048; 80053; 80076; 80202; 80307; 81001; 82553; 82947; 83605; 83690; 83735; 83880; 84443; 84484; 85007; 85025; 85379; 85610; 85730; 87040; 87086; 87186; 87641; 87804; 93005; 94640; 96365; 96366; 96367; J0696; J1815; J1956; J3370; J7040; J7050; J7120; J7620; 92610; 99285-25